=== PATIENT | female | born 2000 | race Caucasian/White ===

== ENCOUNTER 2022-10-28 18:56 | Emergency (ER) | payer SELFPAY ==
[2022-10-28 19:03] VITALS: BP 115/70; PULSE 105; RESP 18; TEMP 37; O2SAT 100; BMI 20.7
[2022-10-28 19:35] LABS: Bilirubin Urine NEGATIVE (NEGATIVE); Blood Urine NEGATIVE (NEGATIVE); Clarity Urine CLEAR (CLEAR); Color Urine LT. YELLOW (YELLOW); Glucose Urine UA NEGATIVE (NEGATIVE); Ketones Urine NEGATIVE (NEGATIVE); Leukocyte Esterase Urine NEGATIVE (NEGATIVE); Nitrite Urine NEGATIVE (NEGATIVE); Protein Urine NEGATIVE (NEG/TRACE); Specific Gravity Urine <=1.005 (1.005-1.025); Urobilinogen Urine 0.2 EU/dL (0.2-1.0); pH Urine 5.5 (5.0-9.0)
[2022-10-28 19:36] LABS: Urine Microscopic Indicated NO
--- NOTE | 2022-10-28 19:44 | CT_ITS ---
The [address] [address] Patient Name: HIREN SWANN MRN: [id number] date: 2000 Sex: F Assigned Patient Location: ER Current Patient Location: ER Accession/Order Number: [id number] Exam Date: 10/28/2022 20:48 Report Date: 10/28/2022 22:39 At the request of: JODI REED Procedure: CT abdomen pelvis w con EXAMINATION: CT abdomen pelvis w con, 10/28/2022 5:48 PM PDT HISTORY: left lower quadrant abdominal pain COMPARISON: None TECHNIQUE: CT scan of the abdomen and pelvis was performed with IV contrast. CT dose reduction technique was used, including Automated Exposure Control. FINDINGS: Lung: No significant finding. Liver: Mild intrahepatic bile duct dilation. Gallbladder: Pericholecystic edema. Spleen: No significant finding. Pancreas: No significant finding. Adrenal glands: No significant finding. Kidneys, ureters and bladder: 4 mm left mid ureteral calculus. Mild left hydroureteronephrosis. Prominent left-sided perinephric and. Adrenal stranding. Bladder is decompressed with circumferential wall thickening. Asymmetric enhancement of the kidneys. Bowel: Normal appendix. Peritoneum/retroperitoneum: As above. Lymph nodes: No significant finding. Vessels: No significant finding. Body wall: Tiny fat-containing umbilical hernia. Reproductive: No significant finding. Bones: No significant finding. IMPRESSION: 4 mm left mid ureteral calculus with mild left hydroureteronephrosis. Prominent edema and asymmetric enhancement of the left kidney suggesting significant renal dysfunction. Superimposed infection not excluded. Cystitis. Mild intrahepatic bile duct dilation and pericholecystic edema. Correlate with biochemical markers and consider quadrant ultrasound. Electronically authenticated by: SANDRA LÓPEZ Date: 10/28/2022 22:39
--- NOTE | 2022-10-28 19:47 | ED.GENADUL1 ---
Documented by User: LEATHA Stephen 10/28/22 21:02 HPI - General Adult General Chief complaint: Abdominal Pain Stated complaint: FLANK PAIN Time Seen by Provider: 10/28/22 19:35 Source: patient Mode of arrival: Wheelchair History of Present Illness HPI narrative: patient is a 22-year-old female presents too the Emergency Room with her mother for evaluation of left lower quadrant abdominal pain. Patient notes pain is been present since yesterday, progressively worsening, there are some times with the pain subsides but pain is reactivated with movement. She was seen yesterday for suspected cyclic vomiting syndrome in another Emergency Room and was given IV fluids and Haldol with some relief, patient states she is still nauseous but the abdominal pain is something new. She denies any fevers or chills. Her last bowel movement was one week ago. Patient admits to marijuana use daily. She denies any IV drug abuse alcohol use. Patient denies any dyspareunia orvaginal discharge. She denies any dysuria. Patient denies any chest pain or shortness of breath, notes pain in the left side of her abdomen with movement. Related Data Allergies Allergy/AdvReac Type Severity Reaction Status Date / Time No Known Drug Allergies Allergy Verified 10/28/22 19:10 Review of Systems ROS Constitutional Denies: fever or chills Ears, nose, mouth, and throat Denies: neck pain Cardiovascular Denies: chest pain Respiratory Denies: shortness of breath or cough Gastrointestinal Reports: abdominal pain, nausea and vomiting Genitourinary Reports: other (LMP 5-22 to 5-27); Denies: painful urination, urinary frequency, vaginal bleeding or vaginal discharge Integumentary/Breast Denies: rash Neurological Denies: headache Psychiatric Denies: anxiety Hematologic/Lymphatic Denies: easy bruising Exam Narrative Exam Narrative: Nurses notes and vital signs reviewed and patient is not hypoxic. General: The patient appears well and in no apparent distress. Patient is resting comfortably on cart. Skin: Warm, dry, no pallor noted. Head: Normocephalic, atraumatic Neck: Supple, trachea mid-line, no tenderness, no lymphadenopathy Eye: Pupils are equal, round and reactive to light, EOMI Ears, Nose, Mouth, and Throat: TM are clear, normal light reflex, oral mucosa is moist,poor dentition, no evidence of abscess, no posterior oropharynx erythema or hypertrophy, uvula is mid-line Cardiovascular: Regular Rate and Rhythm Respiratory: Patient is in no distress, no accessory muscle use, lungs are clear to auscultation, no wheezing, rales or rhonchi. Chest Wall: no tenderness Back: non-tender, no CVA tenderness Musculoskeletal: normal ROM, no tenderness, no swelling GI: Normal bowel sounds, tenderness noted left lower quadrant, no palpable splenomegaly, patient has tenderness on deep palpation but no guarding or rebound. Neurological: A&O x4 Psychiatric: Cooperative Constitutional Vital Signs - 24 hr 10/28/22 19:03 10/28/22 21:09 Temperature 98.6 F Pulse Rate [Monitor] 105 H 88 Respiratory Rate 18 14 Blood Pressure [Left Arm] 115/70 119/67 Pulse Oximetry 100 98 Oxygen Delivery Method Room Air Room Air Course Vital Signs Vital signs: Vital Signs Temperature 98.6 F 10/28/22 19:03 Pulse Rate 105 H 10/28/22 19:03 Respiratory Rate 18 10/28/22 19:03 Blood Pressure 115/70 10/28/22 19:03 Pulse Oximetry 100 10/28/22 19:03 Oxygen Delivery Method Room Air 10/28/22 19:03 Temperature 98.6 F 10/28/22 19:03 Pulse Rate 88 10/28/22 21:09 Respiratory Rate 14 10/28/22 21:09 Blood Pressure 119/67 10/28/22 21:09 Pulse Oximetry 98 10/28/22 21:09 Oxygen Delivery Method Room Air 10/28/22 21:09 Medical Decision Making [facility] Narrative Medical decision making narrative: history of marijuana abuse and cyclic vomiting syndrome, patient notes symptoms currently are different with abdominal pain, last bowel movement week ago. Patient with minimal intake today other than a frozen Coke, mother states she got dehydrated by being in a pool too long two days ago. Patient given 1 L IV fluids, Pepcid 20 mg IV and oral Bentyl and oral Phenergan. Patient also given IV Zofran 4 mg. We will get a CT of the abdomen and pelvis given her complaint for further evaluation to rule out diverticulitis/colitis. Lab Data Labs: Lab Results 10/28/22 10/28/22 Range/Units 19:05 20:03 WBC 19.3 H (4.0-11.0) 10^3/uL RBC 4.36 (4.20-5.40) 10^6/uL Hgb 11.4 L (12.0-16.0) g/dL Hct 35.2 L (36.0-48.0) % MCV 80.7 L (81.0-99.0) fL MCH 26.1 L (26.7-34.0) pg MCHC 32.4 (29.9-35.2) g/dL RDW 14.2 (11.0-15.0) % Plt Count 137 L (150-450) 10^3/uL MPV 14.1 H (9.5-13.5) fL Neut % (Auto) 93.2 H (43.0-75.0) % Lymph % (Auto) 1.9 L (20.5-60.0) % Kings % (Auto) 3.8 (1.7-12.0) % Eos % (Auto) 0.3 L (0.9-7.0) % Baso % (Auto) 0.2 (0.2-2.0) % Neut # (Auto) 18.0 H (1.4-6.5) 10^3/uL Lymph # (Auto) 0.4 L (1.2-3.8) 10^3/uL Kings # (Auto) 0.7 (0.3-0.8) 10^3/uL Eos # (Auto) 0.1 (0.0-0.7) 10^3/uL Baso # (Auto) 0.0 (0.0-0.1) 10^3/uL Sodium 134 L (136-145) mmol/L Potassium 3.5 (3.5-5.1) mmol/L Chloride 100 (98-107) mmol/L Carbon Dioxide 24.4 (21.0-32.0) mmol/L Anion Gap 13.1 BUN 13.0 (7.0-18.0) mg/dL Creatinine 1.62 H (0.55-1.02) mg/dL Est GFR ( Amer) 48 L (>=60) Est GFR (Non-Af Amer) 39 L (>=60) BUN/Creatinine Ratio 8.0 Glucose 143 H (74-106) mg/dL Lactate 1.5 (0.4-2.0) mmol/L Calcium 8.9 (8.5-10.1) mg/dL Total Bilirubin 0.6 (0.2-1.0) mg/dL AST 20 (15-37) U/L ALT 19 (14-59) U/L Total Protein 7.3 (6.4-8.2) g/dL Albumin 3.7 (3.4-5.0) g/dL Globulin 3.6 g/dL Albumin/Globulin Ratio 1.0 Lipase 28.0 L (73.0-393.0) U/L Serum HCG, Qual Negative (NEGATIVE) Urine Color Lt. yellow (YELLOW) Urine Clarity Clear (CLEAR) Urine pH 5.5 (5.0-9.0) Ur Specific [place] <=1.005 A (1.005-1.025) Urine Protein Negative (NEG/TRACE) mg/dL Urine Glucose (UA) Negative (NEGATIVE) mg/dL Urine Ketones Negative (NEGATIVE) mg/dL Urine Occult Blood Negative (NEGATIVE) Urine Nitrite Negative (NEGATIVE) Urine Bilirubin Negative (NEGATIVE) Urine Urobilinogen 0.2 (0.2-1.0) EU/dL Ur Leukocyte Esterase Negative (NEGATIVE) Discharge Plan Discharge Chief Complaint: Abdominal Pain Clinical Impression: Abdominal pain, Calculus of kidney Patient Disposition: Home, Self-Care Condition: Good Instructions: Kidney Stones (ED) Stand Alone Forms: Portal Instructions Referrals: Luis A Gan MD [Physician] - None (in 2-3 days) Rhea Clark MD [Physician] - As soon as possible (kidney stone) Physician,Non-Staff, [Primary Care Provider] - 1 week Follow Up Appointments: schedule ultrasound of your gallbladder. Follow up with family doctor Dr Gan and Urologist as discussed Documented by User: Zia Delaney MD 10/28/22 23:22 HPI - General Adult General Chief complaint: Abdominal Pain Stated complaint: FLANK PAIN Time Seen by Provider: 10/28/22 19:35 Related Data Allergies Allergy/AdvReac Type Severity Reaction Status Date / Time No Known Drug Allergies Allergy Verified 10/28/22 19:10 Exam Constitutional Vital Signs - 24 hr 10/28/22 19:03 10/28/22 21:09 Temperature 98.6 F Pulse Rate [Monitor] 105 H 88 Respiratory Rate 18 14 Blood Pressure [Left Arm] 115/70 119/67 Pulse Oximetry 100 98 Oxygen Delivery Method Room Air Room Air Course Vital Signs Vital signs: Vital Signs Temperature 98.6 F 10/28/22 19:03 Pulse Rate 105 H 10/28/22 19:03 Respiratory Rate 18 10/28/22 19:03 Blood Pressure 115/70 10/28/22 19:03 Pulse Oximetry 100 10/28/22 19:03 Oxygen Delivery Method Room Air 10/28/22 19:03 Temperature 98.6 F 10/28/22 19:03 Pulse Rate 88 10/28/22 21:09 Respiratory Rate 14 10/28/22 21:09 Blood Pressure 119/67 10/28/22 21:09 Pulse Oximetry 98 10/28/22 21:09 Oxygen Delivery Method Room Air 10/28/22 21:09 Medical Decision Making Medical Records Medical records narrative: care transferred at change of shift. Patient presents with recurrent left sided abdominal pain and vomiting. Seen yesterday at hospital in [place] for recurrent vomiting which was felt to be related to marijuana use. CT tonight demonstrates left ureteral stone and hydronephrosis. Also comments about pericholecystic edema. Patient examined and she has LLQ and left CVA tenderness. She does not have RUQ tenderness and there was no history of RUQ pain. Her LFTs are normal. UA clear. She is advised of the plan to follow up with a family doctor regarding her renal function. Will arrange for out patient GB US and have her follow up with Urology for her stone. Discharged with a prescription for Toradol which controlled her pain here and zofran. Patient and her mother informed of the plan Lab Data Labs: Lab Results 10/28/22 10/28/22 Range/Units 19:05 20:03 WBC 19.3 H (4.0-11.0) 10^3/uL RBC 4.36 (4.20-5.40) 10^6/uL Hgb 11.4 L (12.0-16.0) g/dL Hct 35.2 L (36.0-48.0) % MCV 80.7 L (81.0-99.0) fL MCH 26.1 L (26.7-34.0) pg MCHC 32.4 (29.9-35.2) g/dL RDW 14.2 (11.0-15.0) % Plt Count 137 L (150-450) 10^3/uL MPV 14.1 H (9.5-13.5) fL Neut % (Auto) 93.2 H (43.0-75.0) % Lymph % (Auto) 1.9 L (20.5-60.0) % Kings % (Auto) 3.8 (1.7-12.0) % Eos % (Auto) 0.3 L (0.9-7.0) % Baso % (Auto) 0.2 (0.2-2.0) % Neut # (Auto) 18.0 H (1.4-6.5) 10^3/uL Lymph # (Auto) 0.4 L (1.2-3.8) 10^3/uL Kings # (Auto) 0.7 (0.3-0.8) 10^3/uL Eos # (Auto) 0.1 (0.0-0.7) 10^3/uL Baso # (Auto) 0.0 (0.0-0.1) 10^3/uL Sodium 134 L (136-145) mmol/L Potassium 3.5 (3.5-5.1) mmol/L Chloride 100 (98-107) mmol/L Carbon Dioxide 24.4 (21.0-32.0) mmol/L Anion Gap 13.1 BUN 13.0 (7.0-18.0) mg/dL Creatinine 1.62 H (0.55-1.02) mg/dL Est GFR ( Amer) 48 L (>=60) Est GFR (Non-Af Amer) 39 L (>=60) BUN/Creatinine Ratio 8.0 Glucose 143 H (74-106) mg/dL Lactate 1.5 (0.4-2.0) mmol/L Calcium 8.9 (8.5-10.1) mg/dL Total Bilirubin 0.6 (0.2-1.0) mg/dL AST 20 (15-37) U/L ALT 19 (14-59) U/L Total Protein 7.3 (6.4-8.2) g/dL Albumin 3.7 (3.4-5.0) g/dL Globulin 3.6 g/dL Albumin/Globulin Ratio 1.0 Lipase 28.0 L (73.0-393.0) U/L Serum HCG, Qual Negative (NEGATIVE) Urine Color Lt. yellow (YELLOW) Urine Clarity Clear (CLEAR) Urine pH 5.5 (5.0-9.0) Ur Specific [place] <=1.005 A (1.005-1.025) Urine Protein Negative (NEG/TRACE) mg/dL Urine Glucose (UA) Negative (NEGATIVE) mg/dL Urine Ketones Negative (NEGATIVE) mg/dL Urine Occult Blood Negative (NEGATIVE) Urine Nitrite Negative (NEGATIVE) Urine Bilirubin Negative (NEGATIVE) Urine Urobilinogen 0.2 (0.2-1.0) EU/dL Ur Leukocyte Esterase Negative (NEGATIVE) Discharge Plan Discharge Chief Complaint: Abdominal Pain Clinical Impression: Abdominal pain, Calculus of kidney Patient Disposition: Home, Self-Care Condition: Good Instructions: Kidney Stones (ED) Stand Alone Forms: Portal Instructions Referrals: Luis A Gan MD [Physician] - None (in 2-3 days) Rhea Clark MD [Physician] - As soon as possible (kidney stone) Physician,Non-Staff, MD [Primary Care Provider] - 1 week Follow Up Appointments: schedule ultrasound of your gallbladder. Follow up with family doctor Dr Gan and Urologist as discussed
[2022-10-28 20:22] LABS: Basophils Percent Auto 0.2 % (0.2-2.0); Eosinophils Absolute Auto 0.1 10^3/uL (0.0-0.7); Eosinophils Percent Auto 0.3 % (0.9-7.0); Hematocrit 35.2 % (36.0-48.0); Hemoglobin 11.4 g/dL (12.0-16.0); Immature Granulocytes Abs Auto 0.12 10^3/uL (0.00-0.03); Immature Granulocytes Pct Auto 0.6 % (0.0-0.5); Lymphocytes Absolute Auto 0.4 10^3/uL (1.2-3.8); Lymphocytes Percent Auto 1.9 % (20.5-60.0); Mean Corpuscular HGB Conc 32.4 g/dL (29.9-35.2); Mean Corpuscular Hemoglobin 26.1 pg (26.7-34.0); Mean Corpuscular Volume 80.7 fL (81.0-99.0); Mean Platelet Volume 14.1 fL (9.5-13.5); Monocytes Absolute Auto 0.7 10^3/uL (0.3-0.8); Monocytes Percent Auto 3.8 % (1.7-12.0); Neutrophils Percent Auto 93.2 % (43.0-75.0); Platelet Count 137 10^3/uL (150-450); Red Blood Count 4.36 10^6/uL (4.20-5.40); Red Cell Distribution Width 14.2 % (11.0-15.0); White Blood Count 19.3 10^3/uL (4.0-11.0)
[2022-10-28] MEDS: KETOROLAC TROMETHAMINE 30 MG/ML VIAL IVP (20:22)
[2022-10-28] MEDS: DICYCLOMINE HCL 10 MG CAPSULE 20 MG PO (20:22)
[2022-10-28] MEDS: ONDANSETRON PF 4 MG/2 ML VIAL IV (20:22)
[2022-10-28] MEDS: 0.9 % SODIUM CHLORIDE 1,000 ML 999 ML IV ×2 (20:22→21:29)
[2022-10-28] MEDS: PROMETHAZINE HCL 25 MG TABLET PO (20:22)
[2022-10-28] MEDS: FAMOTIDINE/PF 20 MG/2 ML VIAL IV (20:23)
[2022-10-28 20:31] LABS: HCG Qualitative NEGATIVE (NEGATIVE)
[2022-10-28 20:37] LABS: Lactate/Lactic Acid 1.5 mmol/L (0.4-2.0)
[2022-10-28 20:43] LABS: Alanine Aminotransferase 19 U/L (14-59); Albumin Level 3.7 g/dL (3.4-5.0); Alkaline Phosphatase 47 U/L (46-116); Anion Gap 13.1; Aspartate Amino Transferase 20 U/L (15-37); Bilirubin Total 0.6 mg/dL (0.2-1.0); Calcium 8.9 mg/dL (8.5-10.1); Carbon Dioxide 24.4 mmol/L (21.0-32.0); Chloride 100 mmol/L (98-107); Estimated GFR (African America 48 (>=60); Estimated GFR (Non-African Ame 39 (>=60); Globulin 3.6 g/dL; Glucose 143 mg/dL (74-106); Potassium 3.5 mmol/L (3.5-5.1); Sodium 134 mmol/L (136-145); Total Protein 7.3 g/dL (6.4-8.2)
[2022-10-28 21:09] VITALS: BP 119/67; PULSE 88; RESP 14; O2SAT 98
[2022-10-28] MEDS: HYDROCODONE/ACETAMINOPHEN 5-325 MG TABLET 4 TAB PO (23:33)
[2022-10-28] MEDS: ONDANSETRON 4 MG RAPDIS TABLET 8 MG SL (23:34)
== END 2022-10-28 23:43 | disposition home or self-care (01) ==
PROVIDERS: Personal Emergency Response Attendant; Emergency Provider Internal Medicine
DX: N13.2 Hydronephrosis with renal and ureteral calculous obstruction (principal); R11.2 Nausea with vomiting, unspecified; R10.32 Left lower quadrant pain
CPT/HCPCS: 36415; 74177; 80053; 81001; 81003; 83605; 83690; 84703; 85025; 96374; 96375; 99285; Q9967

== ENCOUNTER 2022-10-29 19:26 | Outpatient (OUT) | payer SELFPAY ==
--- NOTE | 2022-10-29 19:39 | US_ITS ---
The [address] [address] Patient Name: HIREN SWANN MRN: [id number] date: 2000 Sex: F Assigned Patient Location: US Current Patient Location: US Accession/Order Number: [id number] Exam Date: 10/29/2022 19:40 Report Date: 10/29/2022 20:30 At the request of: RANJIT CARTAGENA Procedure: US right upper quadrant ULTRASOUND RIGHT UPPER QUADRANT HISTORY: Abdominal pain. COMPARISON: None. FINDINGS: The liver appears unremarkable. There is no evidence for mass or intrahepatic biliary ductal dilatation. The gallbladder appears unremarkable with no evidence for gallstones, gallbladder wall thickening or pericholecystic fluid. The common bile duct measures 5.2 mm. Negative Viramontes's sign. The visualized portions of the pancreas appear unremarkable. The right kidney is normal appearing with no evidence of hydronephrosis or masses. IMPRESSION: Normal right upper quadrant ultrasound. Electronically authenticated by: SABINO BAER Date: 10/29/2022 20:30
== END 2022-10-29 19:27 ==
PROVIDERS: Visit Provider Internal Medicine
DX: K80.20 Calculus of gallbladder without cholecystitis without obstruction (principal)
CPT/HCPCS: 76705

== ENCOUNTER 2023-04-25 19:38 | Emergency (ER) | payer SELFPAY ==
[2023-04-25 19:45] VITALS: BP 100/53; PULSE 80; RESP 16; TEMP 36.7; O2SAT 100; BMI 23.3
--- NOTE | 2023-04-25 20:02 | XR_ITS ---
The [address] [address] Patient Name: HIREN SWANN MRN: [id number] date: 2000 Sex: F Assigned Patient Location: ER Current Patient Location: ER Accession/Order Number: [id number] Exam Date: 04/25/2023 20:47 Report Date: 04/25/2023 21:12 At the request of: NIKUNJ GRAYSON Procedure: XR lumbar spine 2-3V EXAM: XR lumbar spine 2-3V HISTORY: Low back pain COMPARISON: Abdomen and pelvic CT 10/28/2022 TECHNIQUE: 3 views FINDINGS: Maintenance of the normal lumbar lordosis.. Vertebral body heights and alignments exhibit no fracture or listhesis. Intervertebral disc space heights are unremarkable XR/XR lumbar spine 2-3V IMPRESSION: Normal lumbar spine x-rays Electronically authenticated by: EVELYN LUNA Date: 04/25/2023 21:12
--- NOTE | 2023-04-25 20:03 | ED_ITS ---
HPI - Back Pain/Injury General Chief Complaint: Back Pain/Injury Stated Complaint: BACK PAIN, MIGRAINE Time Seen by Provider: 04/25/23 19:45 History of Present Illness HPI Narrative: Patient is a 23-year-old female who presents to the emergency department for the evaluation of low back pain that began today. She reports pain in the mid lumbar spine, no flank pain or abdominal pain. She denies any specific mechanism of trauma or injury. She denies urinary symptoms, fevers, chills, nausea, vomiting. She has no pain radiation to the lower extremities or peripheral paresthesias. She states pain radiates up the spine into the shoulders and she has noticed a headache wrapping around the back of the head this afternoon. She states pain has gotten progressively worse in the low back throughout the day. Pain is worse with movement, standing. She took Motrin to arrival several hours ago without improvement. Related Data Previous Rx's Medication Instructions Recorded ketorolac 10 mg tablet 10 mg PO TID PRN pain #10 tabs 04/25/23 orphenadrine citrate 100 mg 100 mg PO BID PRN muscle pain #14 04/25/23 tablet,extended release tabs Allergies Allergy/AdvReac Type Severity Reaction Status Date / Time No Known Drug Allergies Allergy Verified 04/25/23 19:51 Review of Systems ROS Constitutional Denies: fever or chills Ears, nose, mouth, and throat Denies: throat pain Cardiovascular Denies: chest pain Respiratory Denies: shortness of breath Gastrointestinal Denies: abdominal pain, nausea or vomiting Genitourinary Denies: painful urination or urinary incontinence Musculoskeletal Reports: back pain Integumentary/Breast Denies: rash Neurological Reports: headache; Denies: numbness in extremities, weakness in extremities, dizziness or vertigo Endocrine Denies: excessive urination PFSH [facility] Social History Smoking status: Current every day smoker Exam Narrative Exam Narrative: Gen.: Awake, alert, in no distress Head: Normocephalic, atraumatic ENT: Moist mucous membranes; no nuchal rigidity, C-spine nontender Respiratory: No respiratory distress Back: No bony point tenderness of the T-spine, diffuse mild tenderness of the mid lumbar spine with no obvious deformity, no pain out of proportion on exam, no step-off. Pain with movement of the lumbar spine. Extremities: Moves extremities equally, normal dorsiflexion and plantarflexion of the lower extremities bilaterally, no decrease in sensation to the medial thighs. Normal hip flexion bilaterally Psych: Normal mood and affect Neuro: No focal neuro deficit Skin: Warm, dry, intact Constitutional Vital Signs, click to edit/add: Last Vital Signs Temp 98.0 F 04/25/23 19:45 Pulse 80 04/25/23 19:45 Resp 16 04/25/23 19:45 BP 100/53 04/25/23 19:45 Pulse Ox 100 04/25/23 19:45 O2 Del Method Room Air 04/25/23 19:45 Course Vital Signs Vital signs: Vital Signs Temperature 98.0 F 04/25/23 19:45 Pulse Rate 80 04/25/23 19:45 Respiratory Rate 16 04/25/23 19:45 Blood Pressure 100/53 04/25/23 19:45 Pulse Oximetry 100 04/25/23 19:45 Oxygen Delivery Method Room Air 04/25/23 19:45 Temperature 98.0 F 04/25/23 19:45 Pulse Rate 80 04/25/23 19:45 Respiratory Rate 16 04/25/23 19:45 Blood Pressure 100/53 04/25/23 19:45 Pulse Oximetry 100 04/25/23 19:45 Oxygen Delivery Method Room Air 04/25/23 19:45 MDM - Back Pain/Injury MDM Narrative Medical decision making narrative: Patient medicated with Toradol and Solu-Medrol in the emergency department. Urine specimen is unremarkable and lumbar spine x-rays with no evidence of acute process. Patient treated for musculoskeletal pain with NSAIDs and muscle relaxants for home. Follow-up with PCP and return to the ER if symptoms change or worsen. Medical Records Attestation: I reviewed the patient's medical records. Lab Data Attestation: I reviewed the patient's lab results. Labs: Lab Results 04/25/23 Range/Units 20:15 Urine Color Lt. yellow (YELLOW) Urine Clarity Clear (CLEAR) Urine pH 6.0 (5.0-9.0) Ur Specific [place] 1.025 (1.005-1.025) Urine Protein Negative (NEG/TRACE) mg/dL Urine Glucose (UA) Negative (NEGATIVE) mg/dL Urine Ketones Negative (NEGATIVE) mg/dL Urine Occult Blood Negative (NEGATIVE) Urine Nitrite Negative (NEGATIVE) Urine Bilirubin Negative (NEGATIVE) Urine Urobilinogen 0.2 (0.2-1.0) EU/dL Ur Leukocyte Esterase Negative (NEGATIVE) Imaging Data XR lumbar spine: Attestation: I have reviewed the pertinent imaging results. Radiologist's impression: Procedure: XR lumbar spine 2-3V EXAM: XR lumbar spine 2-3V HISTORY: Low back pain COMPARISON: Abdomen and pelvic CT 10/28/2022 TECHNIQUE: 3 views FINDINGS: Maintenance of the normal lumbar lordosis.. Vertebral body heights and alignments exhibit no fracture or listhesis. Intervertebral disc space heights are unremarkable IMPRESSION: Normal lumbar spine x-rays Electronically authenticated by: EVELYN LUNA Date: 04/25/2023 21:12 Discharge Plan Discharge Chief Complaint: Back Pain/Injury Clinical Impression: Lumbosacral strain Patient Disposition: Home, Self-Care Time of Disposition Decision: 21:19 Condition: Good Prescriptions / Home Meds: New ketorolac 10 mg tablet 10 mg PO TID PRN (Reason: pain) Qty: 10 0RF orphenadrine citrate 100 mg tablet extended release 100 mg PO BID PRN (Reason: muscle pain) Qty: 14 0RF Instructions: Low Back Strain (ED), Back Pain (ED) Additional Instructions: Rest, ice, gentle stretching Stand Alone Forms: Portal Instructions Referrals: Physician,Non-Staff, MD [Primary Care Provider] - 1 week Discharge Date/Time: 04/25/23 21:36
[2023-04-25] MEDS: KETOROLAC TROMETHAMINE 60 MG/2 ML VIAL IM (20:15)
[2023-04-25] MEDS: METHYLPREDNISOLONE SOD SUCC PF 125 MG/2 ML VIAL IM (20:16)
[2023-04-25 20:37] LABS: Bilirubin Urine NEGATIVE (NEGATIVE); Blood Urine NEGATIVE (NEGATIVE); Clarity Urine CLEAR (CLEAR); Color Urine LT. YELLOW (YELLOW); Glucose Urine UA NEGATIVE (NEGATIVE); Ketones Urine NEGATIVE (NEGATIVE); Leukocyte Esterase Urine NEGATIVE (NEGATIVE); Nitrite Urine NEGATIVE (NEGATIVE); Protein Urine NEGATIVE (NEG/TRACE); Specific Gravity Urine 1.025 (1.005-1.025); Urobilinogen Urine 0.2 EU/dL (0.2-1.0)
[2023-04-25 20:38] LABS: Urine Microscopic Indicated NO
[2023-04-25] MEDS: METHOCARBAMOL 500 MG TABLET 1000 MG PO (21:31)
== END 2023-04-25 21:36 | disposition home or self-care (01) ==
PROVIDERS: Physician Assistant; Emergency Provider Internal Medicine
DX: S39.012A Strain of muscle, fascia and tendon of lower back, initial encounter (principal); F17.210 Nicotine dependence, cigarettes, uncomplicated; X58.XXXA Exposure to other specified factors, initial encounter
CPT/HCPCS: 72100; 81003; 96372; 99285; J2930

== ENCOUNTER 2024-02-07 21:43 | Emergency (ER) | payer SELFPAY ==
[2024-02-07 21:48] VITALS: BP 112/67; PULSE 89; TEMP 36.8; O2SAT 100; BMI 23.5
--- OUTSIDE RECORDS SUMMARY | 2024-02-07 21:48 | XMS_ITS | CCD ---
Author Organization [facility] CliniSymo Care Team Providers Care Vice President Medical Affairs Name Role Phone Zhane Graves Unavailable ELEAZAR, DR RANJAN Horvath Attending Unavailabl e ZIEBNAV, DR LORENA Ramires Consulting Unavailable ELEAZAR, DR RANJAN Horvath Admitting Unavailabl e REQUEST, NONE LISTED Primary Care Unavaila YOKASTA Pacheco Consulting Unavailable MAYNOR ELKINS Admitting Unavailable MIRELA, LEATHA RICK Consulting Unavailable MAYNOR ELKINS Attending Unavailable REQUEST, NONE LISTED Primary Care Unavaila ble ANA PAULA, MARCO Consulting Unavailable MARKER, DR BETTS Admitting Unavailable REQUEST, NONE LISTED Primary Care Unavaila ble MARKER, DR BETTS Attending Unavailable MARKER, DR BETTS Consulting Unavailable SHANTEL WATKINS Consulting Unavailable Kristine, Coral Breen Attending Unalukaszi graeme Carmona, Coral Breen Attending MD Damien Trevizo Attending Unavai graeme Alexandre, Luis Antonio Escalante Attending Unavailable Mauri, Deana Husain Attending Unavaila ble Kristine, Marino Saleh Attending UnaMD Yifan Cramer Attending Unavailab marla Romo APRN-HEMODIALYSIS PATIENT CARE SPECIALIST, Na Jones Attending Michelle vailable Demetrius KRAUSE-MANDY, Na Jones Attending Michelle vailable NO PCP, NO PCP Primary Care Unavailable YOKASTA CALHOUN Attending Unavailab KELLEY Irene Attending Unavailable KELLEY GALVAN Referring Unavailable NO PCP, NO PCP Primary Care Unavailable NO PCP, NO PCP Primary Care Unavailable NO PCP, NO PCP Primary Care Unavailable RICKY DE GUZMAN Attending Unavailable RICKY DE GUZMAN Attending Unavailable RICKY DE GUZMAN Referring Unavailable NO PCP, NO PCP Primary Care Unavailable NO PCP, NO PCP Primary Care Unavailable SATYA MOSES Attending Unavailable NO PCP, NO PCP Primary Care Unavailable DAVID ZARATE Attending Unavailable DAVID ZARATE Attending Unavailable DAVID ZARATE Referring Unavailable NO PCP, NO PCP Primary Care Unavailable Allergies Allergy Classification Reported Allergen(s) Allergy Type Date of Onset Reaction(s) Facility (1 source) No Known Medication Allergies; Translations: [No Known Medication Allergies] Propensity to adverse reactions to drug (disorder) [facility] Repository Medications Current Medications Medication Drug Class(es) Dates Sig (Normalized) Sig (Original) [id number] 200 actuat albuterol 0.09 mg/actuat metered dose inhaler (1 source) beta2-Adrenergic Agonist Start: 05-04-2021 take 2 puff(s) by inhalation every four to six hours as needed Albuterol Sulfate HFA 108 (90 Base) MCG/ACT 2 puffs as needed Inhalation every 4-6 hours for 14 days Apr, Active Completed/Discontinued Medications Medication Drug Class(es) Dates Sig (Normalized) Sig (Original) ondansetron 4 mg oral tablet (1 source) Serotonin-3 Receptor Antagonist Start: 06-30-2019 take 1 tablet by mouth every eight hours as needed Zofran ODT 4 MG 1 tablet on the tongue and allow to dissolve Orally every 8 hrs as needed for 4 days Jun, Not-Taking Problems Active Problems Problem Classification Problem Date Documented Da te Episodic/Chronic Abdominal pain (2 sources) Epigastric pain; Translations: [Abdominal pain] Onset: 12-03-2023 Episodic Disorders of teeth and jaw (2 sources) Reversible pulpitis; 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] Onset: 12-11-2023 Episodic Other connective tissue disease (1 source) Myalgia, unspecified site; Translations: [MYALGIA UNSPECIFIED SITE] Onset: 12-29-2021 Episodic Other upper respiratory disease (1 source) Pain in throat Onset: 10-16-2023 Episodic Otitis media and related conditions (1 source) Otitis media, unspecified, unspecified ear; Translations: [Otitis media, unspecified, unspecified ear] Onset: 10-16-2023 Episodic Spondylosis; intervertebral disc disorders; other back problems (7 sources) Pain in thoracic spine; Translations: [Sacrococcygeal disorders, not elsewhere classified] Onset: 05-16-2021 Episodic Substance-related disorders (1 source) Nicotine dependence, cigarettes, uncomplicated; Translations: [NICOTINE DEPEND CIGARETTES UNCOMP] Onset: 08-05-2022 Chronic Unclassified (1 source) PERSONAL HISTORY OF COVID-19; Translations: [PERSONAL HISTORY OF COVID-19] Onset: 12-29-2021 Unclassified (1 source) CONTACT W/AND (SUSP) EXPOS COVID-19; Translations: [CONTACT W/AND (SUSP) EXPOS COVID-19] Onset: 12-29-2021 Unclassified (1 source) Earache Onset: 10-16-2023 Unclassified (1 source) Arm Injury Onset: 07-05-2023 Past or Other Problems Problem Classification Problem Date Documented Da te Episodic/Chronic E Codes: Fall (1 source) Fall (on) (from) unspecified stairs and steps, initial encounter; Translations: [FALL ON FROM UNS STAIRS STEPS INIT] Onset: 05-17-2021 Episodic Fever of unknown origin (3 sources) Fever, unspecified; Translations: [FEVER UNSPECIFIED] Onset: 06-01-2021 Episodic Immunizations and screening for infectious disease (1 source) Contact with and (suspected) exposure to other viral communicable diseases Onset: 05-04-2021 Resolved: 05-04-2021 Episodic Other fractures (1 source) Fracture of coccyx, initial encounter for closed fracture; Translations: [FX COCCYX INITIAL CLOS FRACTURE] Onset: 05-17-2021 Episodic Other non-traumatic joint disorders (1 source) Pain in left wrist; Translations: [Pain in left wrist] Onset: 08-02-2023 Episodic Other non-traumatic joint disorders (2 sources) Pain in wrist Onset: 08-02-2023 Episodic Other non-traumatic joint disorders (1 source) Pain in right elbow; Translations: [Pain in right elbow] Onset: 07-05-2023 Episodic Other upper respiratory infections (1 source) Acute upper respiratory infection, unspecified; Translations: [ACUTE UP RESPIRATORY INFECTION UNS] Onset: 06-05-2021 Episodic Viral infection (1 source) COVID-19 Onset: 05-04-2021 Resolved: 05-04-2021 Results Test Name Value Interpretation Reference Range Facility CT ABDOMEN AND PELVIS WO CON Ton 12-03-2023 CT ABDOMEN AND PELVIS WO CONT CT ABDOMEN AND PELVIS WO CONT CLINICAL INFORMATION: Abdominal pain, acute, nonlocalized. TECHNIQUE: CT Abdomen and Pelvis without intravenous contrast. All CT scans at this facility use dose modulation, iterative reconstruction, and/or weight based dosing when appropriate to reduce radiation dose to as low as reasonably achievable. COMPARISON: 12/13/2022 FINDINGS: CT abdomen: No hydronephrosis or urinary calculi. No free air or free fluid. Stomach, small bowel within normal limits for noncontrast technique. Partly contracted gallbladder. No enlarged lymph nodes. No abdominal aortic aneurysm CT PELVIS: No dilated bowel loops or pericolonic fat stranding. No enlarged pelvic or inguinal lymph nodes. Appendix within normal limits. No osseous lesions. IMPRESSION: * Negative exam. Finalized by Lorena Emmanuel MD on 12/03/2023 9:00 PM Normal [facility] HCG ( test) Ql (U)o n 12-03-2023 Beta HCG ( test) Ql (U) Negative Normal NEG [facility] Comment on above: Performed By: #### 2 106-3 #### [facility] ([id number]) [address] [place] [address] 48067 URN MACROSCOPIC NURon 2023 BILIRUBIN DEE Negative Normal [facility] Comment on above: Performed By: #### N UM #### [facility] ([id number]) [address] [place] [address] [id number] BLOOD/HGB DEE Negative Normal [facility] Comment on above: Performed By: #### N UM #### [facility] ([id number]) [address] [place] [address] 46481 GLUCOSE DEE Negative Normal [facility] Comment on above: Performed By: #### N UM #### [facility] ([id number]) [address] [place] [address] 94826 KETONES DEE Negative Normal [facility] Comment on above: Performed By: #### N UM #### [facility] ([id number]) [address] [place] [address] 57099 LEUKOCYTE ESTERASE DEE Negative Normal [facility] Comment on above: Performed By: #### N UM #### [facility] ([id number]) [address] [place] [address] 97664 NITRITE DEE Negative Normal NEG [facility] Comment on above: Performed By: #### N UM #### [facility] ([id number]) [address] [place] [address] 67734 PH DEE 6.0 Normal 5.0-8.5 [facility] Comment on above: Performed By: #### N UM #### [facility] ([id number]) [address] [place] [address] 67937 PROTEIN DEE Trace Abnormal NEG [facility] Comment on above: Performed By: #### N UM #### [facility] ([id number]) [address] [place] [address] 90233 SPECIFIC GRAVITY DEE >=1.030 Normal 1.003-1.035 [facility] Comment on above: Performed By: #### N UM #### [facility] ([id number]) [address] [place] [address] 26032 UROBILINOGEN DEE 0.2 eu/dL Normal <1.1 [facility] Comment on above: Performed By: #### N UM #### [facility] ([id number]) [address] [place] [address]7500 RAPID STREP SCR NURSINGon S. pyogenes Ag EIA Ql (Throat) Negative Normal NEG [facility] Comment on above: Performed By: #### 6 556-5 #### [facility] ([id number]) [address] [place] [address] 46229 XR WRIST LT MIN 3 VWSon 03-0 XR WRIST LT MIN 3 VWS XR WRIST LT MIN 3 VWS History: Left wrist pain for one Exam/Technique: AP, lateral, oblique [ views of the wrist Comparison: None Available Findings: There is no evidence of fracture, malalignment or an acute bony abnormality. The lateral view shows normal alignment of the distal radius, lunate and capitate. IMPRESSION: * Negative wrist x-ray series. Finalized by Jama Blackwell DO on 08/02/2023 6:09 PM Normal [facility] XR ELBOW RT MIN 3 VWSon 02-0 XR ELBOW RT MIN 3 VWS XR ELBOW RT MIN 3 VWS Right elbow: HISTORY: Right elbow pain. 3 views the right elbow were obtained. There is no acute osseous, articular, or soft tissue abnormality IMPRESSION: Negative exam. Finalized by Nishant House MD on 07/05/2023 4:58 PM Normal [facility] ED Clinical Summaryon 2021 ED Clinical Summary (Inserted Image. Michelle ble to display) [place] [id number] ED Clinical Summary Person Information Name: Debo Swann/[facility] Age: 22 Years : 2000 Sex: Female PCP: Marital Status: Single Phone: Race: White Ethnicity: Not or Language: Northern Irish Visit Reason: Foot pain-swelling; Extremities pain - swelling Acuity: 4 Enc Type: Emergency Med Service: Emergency Medicine Arrival: 03/22/2022 11:56:48 Discharge: 03/22/2022 13:30:00 LOS: 000 01:34 Checkin: 03/22/2022 11:56:48 Checkout: 03/22/2022 13:30:00 Dispo Type: Home or Self Care Address: [address] [address] Provider Notes: Diagnosis: 1:Contusion of right foot Problems No Problems Documented Smoking Status: Smoking Status 4 or less cigarettes(less than 1/4 pack)/day in last 30 days Functional Status: Sensory Deficits: History of Falls: Mobility Assistance Prior to Admission: ADLs: Current Level of Assistance for Self-Care/Mobility: Cognitive Status: Allergies No Known Medication Allergies Laboratory or Other Results This Visit (last charted value for your 03/22/2022 visit) Diagnostic Radiology 03/22/2022 12:19 PM XR Foot 3 Views Right: XR Foot 3 Views Right Measurements: Height: Weight: 68.7 kg Blood Pressure: /66 mmHg BMI: Procedures No Procedures Documented Immunizations No Immunizations Documented This Visit Final Med List: New Medications [facility]/pharmacy #[id number], [address] [place], [place] [id number], [phone] naproxen (naproxen 500 mg oral tablet) 1 Tabs Oral (given by mouth) 2 times a day for 15 Days. Refills: 0. Last Dose: __ Medications that have not changed Other Medications amoxicillin (amoxicillin 500 mg oral capsule) 1 Capsules Oral (given by mouth) 3 times a day for 7 Days. Refills: 0. Last Dose: __ ondansetron (ondansetron 4 mg oral tablet, disintegrating) 1 Tabs Oral (given by mouth) 3 times a day for 7 Days. Refills: 0. Last Dose: __ [id number], [address] [place], [place] [id number], [phone] naproxen (naproxen 500 mg oral tablet) 1 Tabs Oral (given by mouth) 2 times a day for 15 Days. Refills: 0. Other Medications amoxicillin (amoxicillin 500 mg oral capsule) 1 Capsules Oral (given by mouth) 3 times a day for 7 Days. Refills: 0. ondansetron (ondansetron 4 mg oral tablet, disintegrating) 1 Tabs Oral (given by mouth) 3 times a day for 7 Days. Refills: 0. Care Team Members: Attending Physician: Coral Carmona PA-C Consulting Physician: Referring Physician: Provider Role Assigned Unassigned Coral Carmona PA-C ED MidLevel 03/22/2022 12:21:24 Follow up: With: Address: When: Lorena Lundberg [address] [place] [phone] Business (1) With: Address: When: Family Doctor Within 3 to 5 days With: Address: When: ER Comments: For worsening symptoms, fever greater than 102, intolerable pain. Discharge Orders: Discharge Patient 03/22/22 13:11:00 EDT, Discharge to Home, Self Return to Work/School 03/22/22 13:28:00 EDT, 03/23/22 13:29:00 EDT, 03/22/22 13:28:00 EDT Patient Education Information: Foot Contusion [facility] Poison Help line: . [facility] Hotline: [place] Tobacco Quit Line: [facility] ([place], [place]) [address]: [phone] [facility] ([place], [place]) [address]: [phone] [facility] [address] [facility]. [place], [place]: [phone] Normal [facility] ED Note-Physicianon 03-22-20 ED Note-Physician Chief Complaint pt reports dropping totes on her foot at work today. History of Present Illness The patient is a 22-year-old female presenting for evaluation of a right foot injury. Patient states that she was at work when she mistakenly dropped a pallet of totes weighing approximately 100+ pounds onto her right foot at 10:50 AM. Has pain that she describes as achy, 8 in severity. Pain is 6 exacerbated with palpation and weightbearing. Has not take any medication for pain relief. Reports some bruising and swelling to the dorsum of the foot. No associated paresthesias. No other complaints at this time. Review of Systems As reviewed in the HPI. All other systems reviewed are negative or normal. Physical Exam Constitutional: [Alert, awake, no apparent distress, nontoxic] Head: [Normocephalic, atraumatic] Eyes: [PERRL, extraocular movements intact, clear conjunctiva] Musculoskeletal: [Ecchymosis noted to the dorsum of the foot with marked tenderness to palpation, pain with active ROM. Circulation intact in all. Pulses normal. Sensation intact. Normal capillary refill. No deformity] Skin: [[place], warm, dry. No rashes, cellulitis, or petechiae. Normal turgor.] Neuro: [Alert and oriented X 3, GCS 15. Normal mentation and speech. Moves all extremities ] Psych: [Normal mood and affect, thought process is clear and linear] Vitals & Measurements T: 36.9 ?C (Oral) HR: 88 (Peripheral) RR: 18 BP: 100/66 SpO2: 98% HT: 165 cm WT: 68.7 kg (Dosing) Additional Vitals No qualifying data available. Procedure No qualifying data available. ASA Documentation Medical Decision Making The patient presents for evaluation of a foot injury. On physical exam he is noted to be hemodynamically stable, nontoxic-appearing, neurovascularly intact, tenderness to palpation. We will plan for x-ray and pain control with Naprosyn. X-rays without any acute bony abnormality. We will place the patient in an [place] wrap. She is educated to follow-up outpatient with his orthopedist. Rest, ice, compression and elevation. Return precautions given including any worsening symptoms, inability to ambulate, an increase or change in their pain, persistent vomiting, bleeding, fever or inability to take oral fluids. They expressed understanding that follow-up is essential, agreed with this plan and rationale, their questions were answered and felt comfortable going home. Assessment/Plan 1. Contusion of right foot Orders: naproxen, 1 tabs, Oral, BID, X 15 days, # 30 tabs, 0 Refill(s), 04/06/22 13:11:00 [facility], Pharmacy: [facility]/pharmacy #[id number] Discharge Patient Return to Work/School Refresh vitals and sections below: Problem List/Past Medical History Ongoing No qualifying data Historical No qualifying data Medications Inpatient No active inpatient medications Home amoxicillin 500 mg oral capsule, 500 mg= 1 caps, Oral, TID naproxen 500 mg oral tablet, 500 mg= 1 tabs, Oral, BID ondansetron 4 mg oral tablet, disintegrating, 4 mg= 1 tabs, Oral, TID Allergies No Known Medication Allergies Social History Alcohol Current Substance Abuse Denies All Tobacco 4 or less cigarettes(less than 1/4 pack)/day in last 30 days Use:. Cigarettes, E-Cigarettes Diagnostic Results XRay XR Foot 3 Views Right 03/22/22 12:38:45 IMPRESSION: Normal right foot radiographs. Signed By: Igor VILLALBA, Franky Engle Electronically signed by ___ Kristine DAWSON Coral Manciasuze 03/22/22 13:48 EDT Normal [facility] C Urineon 03-17-2022 C Urine Order added by Ara rn rule. Final >100,000 cfu/ml Mixed gram positive shree isolated. with . Predominantly 50-100,000 cfu/ml Streptococcus agalactiae (Group B) isolated Penicillin is the drug of choice. No susceptibility unless requested due to penicillin allergy or treatment failure. ORGANISM Strep B Abnormal [facility] Comment on above: Performed By: #### . Automated Diff #### [place] [address] .UA Microscp Aon 03-15-2022 UA Bacteria Present Abnormal Absent [facility] Comment on above: Performed By: #### L IVER #### [place] [address] UA Mucus Present Abnormal Absent [facility] Comment on above: Performed By: #### L IVER #### [place] [address] UA RBC Quant 8 /HPF High 0-5 [facility] Comment on above: Performed By: #### L IVER #### [place] [address] UA Squepi Cells Quant 27 /HPF Normal 0-29 [facility] Comment on above: Performed By: #### L IVER #### [place] [address] UA WBC Quant 12 /HPF High 0-5 [facility] Comment on above: Performed By: #### L IVER #### [address] [place] [address] COV19 Rapidon 03-15-2022 Employed in healthcare? No Normal [facility] Comment on above: Performed By: #### C [id number] #### [address] [place] [address] Group care resident? No Normal [facility] Comment on above: Performed By: #### C [id number] #### [address] [address] In ICU? No Normal [facility] Comment on above: Performed By: #### C [id number] #### [address] [address] status? Not Applicable [facility] Comment on above: Performed By: #### C [id number] #### [address] [address] Reason for Rapid Test COVID Exposure Normal [facility] Comment on above: Performed By: #### C [id number] #### [address] [address] SARS-CoV-2 (COVID-19) RNA GENIA+probe Ql (Unsp spec) Negative Normal Negative [facility] Comment on above: Result Comment: The 2019 novel coronavirus SARS-CoV-2 target nucleic acids are not detected. This test is for the detection of SARS-CoV-2 RNA. Positive results are indicative of active infection with SARS-CoV-2. Positive results do not rule out bacterial infection or co-infection with other viruses. Negative results should be treated as presumptive and, if inconsistent with clinical signs and symptoms or necessary for patient management, should be tested with an alternative molecular assay.Negative results do not preclude SARS-CoV-2 infection and should not be used as the sole basis for treatment or other patient management decisions. Clinical correlation with patient history and other diagnostic information is necessary to determine patient infection status. ADDITIONAL INFORMATION: Testing was performed using the ID NOW COVID-19 test by [employer], which has received Emergency Use Authorization (EUA) by the U.S. Food and Drug Administration. The [employer] ID NOW COVID-19 test performs best when patients are tested within the first 7 days of symptom onset. Results should be interpreted with caution for asymptomatic patients or those tested outside the 7 day target. Refer to CDC guidelines for further testing algorithms. Fact sheets for this Emergency Use Authorization (EUA) assay can be found at the following links: Fact Sheet for HealthCare Providers: https://www.[employer].gov/media/429994/download Fact Sheet for Patients: https://www.fda.gov/media/387619/download Performed By: #### C [id number] #### [place] [address] SARS-CoV-2 (COVID-19) RNA GENIA+probe Ql (Unsp spec) No Normal [facility] Comment on above: Performed By: #### C [id number] #### [place] [address] Symptomatic as defined by CDC? No Normal [facility] Comment on above: Performed By: #### C [id number] #### [place] [address] ED Clinical Summaryon 2021 ED Clinical Summary (Inserted Image. Michelle ble to display) [place] [address] ED Clinical Summary Person Information Name: Debo Swann/[facility] Age: 22 Years : 2000 Sex: Female PCP: Marital Status: Single Phone: Race: White Ethnicity: Not or Language: Northern Irish Visit Reason: Diarrhea; Nausea; Dyspnea; Dyspnea - adult Acuity: 4 Enc Type: Emergency Med Service: Emergency Medicine Arrival: 03/15/2022 11:01:09 Discharge: 03/15/2022 14:27:00 LOS: 000 03:26 Checkin: 03/15/2022 11:01:09 Checkout: 03/15/2022 14:27:00 Dispo Type: Home or Self Care Address: [address] [address] Provider Notes: History of Present Illness The patient is a 22-year-old female presenting for evaluation of?shortness of breath,?vomiting and diarrhea. ?She reports?diarrhea that has persisted for approximately 2 weeks. ?There is no report of any associated abdominal pain,?dark tarry stools, bloody stools. ?Per patient she?has experienced some improvement of the diarrhea since symptom onset but developed vomiting today. ?Has vomited once.? There is no report of any hematuria, dysuria. ?Is concerned for possible .? Per patient she developed some nasal congestion?3 days ago?and dyspnea today. ?There is no report of any cough. ?She is a smoker. ?Took DayQuil at 6 AM?without any symptomatic improvement.? Denies any?chest pain, headache, lightheadedness, dizziness, fever, chills, weakness. ?No other complaints at this time. Review of Systems As reviewed in the HPI. All other systems reviewed are negative or normal.? Physical Exam Constitutional: [Alert, awake, no apparent distress, nontoxic] Head: [Normocephalic, atraumatic] Eyes: [PERRL, extraocular movements intact, clear conjunctiva] ENT: [Ear canals-normal, clear. TMs- normal, no erythema. Nose-normal, no drainage, septum midline. Mouth-mucus membranes moist and intact. Posterior pharynx-airway patent, no erythema, exudate, or masses. Uvula midline.] Neck: [Neck is supple with FROM, no nuchal rigidity, no cervical spinal tenderness. Trachea is midline. No lymphadenopathy. No meningeal signs.] Chest: [Appears normal, symmetrical rise, no tenderness to palpation.] Cardiovascular: [Regular rate and rhythm, no appreciated murmurs, normal S1 and S2, strong radial pulses w/ intact distal perfusion] Respiratory: [Lungs clear to auscultation w/o wheezes, rhonchi, or rales, normal excursion, no accessory muscle, no stridor] Abdomen: [Appears normal. Bowel sounds normoactive throughout. Soft and non-tender in all quadrants. No palpable masses, non-distended, no rebound, no guarding] Musculoskeletal: [No pain, full active ROM. Circulation intact in all. Pulses normal. Sensation intact. Normal capillary refill. No deformity, no edema, no swelling, no redness] Skin: [[place], warm, dry. No rashes, cellulitis, or petechiae. Normal turgor.] Neuro: [Alert and oriented X 3, GCS 15. Normal mentation and speech. Moves all extremities w/o motor or sensory deficit, gait is stable, strength normal in all extremities] Psych: [Normal mood and affect, thought process is clear and linear] Diagnosis: 1:UTI symptoms; 2:Diarrhea; 3:Nausea; 4:Cough Problems No Problems Documented Smoking Status: Smoking Status 4 or less cigarettes(less than 1/4 pack)/day in last 30 days Functional Status: Sensory Deficits: History of Falls: Mobility Assistance Prior to Admission: ADLs: Current Level of Assistance for Self-Care/Mobility: Cognitive Status: Allergies No Known Medication Allergies Laboratory or Other Results This Visit (last charted value for your 03/15/2022 visit) Urinalysis 03/15/2022 11:54 AM UA Color: Yellow UA Urobilinogen: Normal mg/dL UA Bili: Negative UA Ketones: Trace mg/dL UA Leukocyte Esterase: 500 UA Nitrite: Negative UA Glucose: Normal mg/dL UA Bacteria: Present /HPF UA Protein: 20 mg/dL UA Blood: Negative UA Spec Grav: 1.024 -- Normal range between ( 1.003 and 1.035 ) UA pH: 5.5 UA Clarity: Turbid UA Source: Clean Catch UA Mucus: Present /LPF UA WBC Quant: 12 /HPF -- Normal range between ( 0 and 5 ) UA RBC Quant: 8 /HPF -- Normal range between ( 0 and 5 ) UA Squepi Cells Quant: 27 /HPF -- Normal range between ( 0 and 29 ) Chemistry 03/15/2022 11:54 AM Urine Preg: Negative Molecular 03/15/2022 11:06 AM SARS-CoV-2 RNA Detection: Negative Diagnostic Radiology 03/15/2022 12:54 PM XR Abdomen 2 Views w/ Chest 1 View: XR Abdomen 2 Views w/ Chest 1 View Measurements: Height: Weight: 68.8 kg Blood Pressure: /69 mmHg BMI: Procedures No Procedures Documented Immunizations No Immunizations Documented This Visit Final Med List: New Medications [id number], [address] [place], [place] [id number], [phone] ondansetron (ondansetron 4 mg oral tablet, disintegrating) 1 Tabs Oral (given by mouth) 3 time (more content not included)... Normal [facility] ED Note-Physicianon 03-15-20 ED Note-Physician Chief Complaint n/d/shortness of breath on exertion History of Present Illness The patient is a 22-year-old female presenting for evaluation of shortness of breath, vomiting and diarrhea. She reports diarrhea that has persisted for approximately 2 weeks. There is no report of any associated abdominal pain, dark tarry stools, bloody stools. Per patient she has experienced some improvement of the diarrhea since symptom onset but developed vomiting today. Has vomited once. There is no report of any hematuria, dysuria. Is concerned for possible . Per patient she developed some nasal congestion 3 days ago and dyspnea today. There is no report of any cough. She is a smoker. Took DayQuil at 6 AM without any symptomatic improvement. Denies any chest pain, headache, lightheadedness, dizziness, fever, chills, weakness. No other complaints at this time. Review of Systems As reviewed in the HPI. All other systems reviewed are negative or normal. Physical Exam Constitutional: [Alert, awake, no apparent distress, nontoxic] Head: [Normocephalic, atraumatic] Eyes: [PERRL, extraocular movements intact, clear conjunctiva] ENT: [Ear canals-normal, clear. TMs- normal, no erythema. Nose-normal, no drainage, septum midline. Mouth-mucus membranes moist and intact. Posterior pharynx-airway patent, no erythema, exudate, or masses. Uvula midline.] Neck: [Neck is supple with FROM, no nuchal rigidity, no cervical spinal tenderness. Trachea is midline. No lymphadenopathy. No meningeal signs.] Chest: [Appears normal, symmetrical rise, no tenderness to palpation.] Cardiovascular: [Regular rate and rhythm, no appreciated murmurs, normal S1 and S2, strong radial pulses w/ intact distal perfusion] Respiratory: [Lungs clear to auscultation w/o wheezes, rhonchi, or rales, normal excursion, no accessory muscle, no stridor] Abdomen: [Appears normal. Bowel sounds normoactive throughout. Soft and non-tender in all quadrants. No palpable masses, non-distended, no rebound, no guarding] Musculoskeletal: [No pain, full active ROM. Circulation intact in all. Pulses normal. Sensation intact. Normal capillary refill. No deformity, no edema, no swelling, no redness] Skin: [[place], warm, dry. No rashes, cellulitis, or petechiae. Normal turgor.] Neuro: [Alert and oriented X 3, GCS 15. Normal mentation and speech. Moves all extremities w/o motor or sensory deficit, gait is stable, strength normal in all extremities] Psych: [Normal mood and affect, thought process is clear and linear] Vitals & Measurements T: 36.7 ?C (Oral) HR: 81 (Peripheral) RR: 16 BP: 100/69 SpO2: 95% HT: 162.2 cm WT: 68.8 kg (Dosing) Additional Vitals No qualifying data available. Procedure No qualifying data available. ASA Documentation Medical Decision Making They appear well here in the ED without signs of respiratory distress or hypoxia and are tolerating oral intake. Lungs are clear, 95% on room air. We will obtain UA, acute abdominal series and COVID swab. COVID is negative. UA is positive for UTI. X-ray is without any acute abdominal normality. She is treated with Bactrim, Zofran. We will plan for discharge home. Return precautions were given, including increased work of breathing, cyanosis, apnea, chest pain, persistent fevers, vomiting, lethargy, poor oral intake or other concerns for worsening illness. Patient and/or Caregiver verbalized understanding of the plan, felt comfortable with discharge, and all questions were answered. Assessment/Plan 1. UTI symptoms 2. Diarrhea 3. Nausea 4. Cough Orders: ondansetron, 1 tabs, Oral, TID, X 7 days, # 21 tabs, 0 Refill(s), 03/22/22 14:16:00 EDT, Pharmacy: [id number] sulfamethoxazole-trimet hoprim, 1 tabs, Oral, BID, X 3 days, # 6 tabs, 0 Refill(s), 03/18/22 14:16:00 EDT, Pharmacy: [id number] Culture Urine Discharge Patient Refresh vitals and sections below: Problem List/Past Medical History Ongoing No qualifying data Historical No qualifying data Medications Inpatient No active inpatient medications Home No active home medications Allergies No Known Medication Allergies Social History Alcohol Current Substance Abuse Denies All Tobacco 4 or less cigarettes(less than 1/4 pack)/day in last 30 days Use:. Cigarettes, E-Cigarettes Lab Results Testing LATEST RESULTS HISTORICAL RESULTS Urine Preg 03/15/22 11:54 Negative 03/05/22 Negative UA Macroscopic LATEST RESULTS HISTORICAL RESULTS UA Source 03/15/22 11:54 Clean Catch 03/05/22 Clean Catch UA Color 03/15/22 11:54 Yellow 03/05/22 Light-Yellow UA Clarity 03/15/22 11:54 Turbid 03/05/22 Clear UA Spec Grav 03/15/22 11:54 1.024 03/05/22 1.007 UA pH 03/15/22 11:54 5.5 03/05/22 6.0 UA Protein 03/15/22 11:54 20 03/05/22 Negative UA Glucose 03/15/22 11:54 Normal 03/05/22 Normal UA Bili 03/15/22 11:54 Negative 03/05/22 Negative UA Urobilinogen 03/15/ (more content not included)... Normal [facility] UA w Culture if Indon 2021 Color (U) Yellow Normal [facility] Comment on above: Performed By: #### U CI #### [place] [address] Ketones Ql (U) Trace Abnormal Negative [facility] Comment on above: Performed By: #### U CI #### [place] [address] UA Blood Negative Normal Negative [facility] Comment on above: Performed By: #### U CI #### [place] [address] UA Clarity Turbid Normal [facility] Comment on above: Performed By: #### U CI #### [place] [address] UA Glucose Normal Normal Negative [facility] Comment on above: Performed By: #### U CI #### [place] [address] UA Leukocyte Esterase 500 Abnormal Negative [facility] Comment on above: Performed By: #### U CI #### [address] [address] UA Nitrite Negative Normal Negative [facility] Comment on above: Performed By: #### U CI #### [address] [address] UA pH 5.5 Normal 4.5 - 7.8 [facility] Comment on above: Performed By: #### U CI #### [address] [address] UA Protein 20 mg/dL Normal Negative [facility] Comment on above: Performed By: #### U CI #### [address] [address] UA Source Clean Catch Normal [facility] Comment on above: Performed By: #### U CI #### [address] [address] UA Spec Grav 1.024 Normal 1.003-1.035 [facility] Comment on above: Performed By: #### U CI #### [address] [address] UA Urobilinogen Normal Normal 0.2 - 1.0 [facility] Comment on above: Performed By: #### U CI #### [place] [id number] Urobilinogen (U) [Mass/Vol] Negative Normal Negative [facility] Comment on above: Performed By: #### U CI #### [place] [id number] ED Note-Physicianon 03-09-20 ED Note-Physician Chief Complaint chest pain x 2 days off and on , dyspnea at times History of Present Illness 22-year-old female presents emergency room with chest pain. She describes a sharp substernal pain that last for few minutes then goes away. Ongoing for several days. Was seen in the ER earlier this week for viral symptoms and a cough. States the pain is bad enough that she had to leave work due to this. Denies fever. Denies hemoptysis or hematemesis. No significant swelling of her lower extremities. It is not related to food intake. Review of Systems As reviewed in the HPI. All other systems reviewed are negative or normal. Physical Exam CONSTITUTIONAL: [no apparent distress, well appearing] SKIN: [warm, dry, no jaundice, hives or petechiae] EYES: [pupils are equally round, extraocular movements intact without nystagmus, clear conjunctiva, non-icteric sclera] HENT: [normocephalic, atraumatic, moist mucus membranes, oropharynx clear without exudates] NECK: [Nontender and supple with no nuchal rigidity, no lymphadenopathy, full range of motion] PULMONARY: [clear to auscultation without wheezes, rhonchi, or rales, normal excursion, no accessory muscle use and no stridor] CARDIOVASCULAR: [regular rate, rhythm, normal S1 and S2. No appreciated murmurs. Strong radial pulses with intact distal perfusion] GASTROINTESTINAL: [soft, non-tender, non-distended, no palpable masses, no rebound or guarding] GENITOURINARY: [No costovertebral angle tenderness to palpation] LYMPHATICS: [no edema in lower extremities, no lymphadenopathy] MUSCULOSKELETAL: [Extremities are nontender to palpation and have no gross deformity, no edema, redness, or swelling] NEUROLOGIC: [alert and oriented x 3, GCS 15, normal mentation and speech. Moves all extremities x 4 without motor or sensory deficit, gait is stable without ataxia] PSYCHIATRIC: [normal mood and affect, thought process is clear and linear] Vitals & Measurements T: 36.7 ?C (Oral) HR: 79 (Peripheral) RR: 17 BP: 110/66 SpO2: 98% HT: 165.1 cm WT: 70.3 kg (Dosing) Additional Vitals No qualifying data available. Procedure No qualifying data available. ASA Documentation Medical Decision Making At this point there is no definitive etiology for the patient's chest pain. Based on the history, physical and diagnostic studies, I think the patient is low risk for life threatening cardiopulmonary events. I have considered ACS, pulmonary embolism, dissection, pneumothorax, esophageal pathology, chest wall syndrome, GERD, pleurisy etc. The patient understands that they need to make an appointment to follow up with a primary physician regarding their complaints this week. They understand they need to return to the ED immediately for any worsening symptoms, recurrant chest pain, difficulty breathing, passing out or other concerns. They are to return to the ED if they cannot see a physician and have other concerns. Reexamination/Reevaluat ion Patient generally looks well at the time of discharge and is nontoxic in appearance. Vital signs are stable/improving. No clinical suspicion for worsening symptomatology Assessment/Plan 1. Chest pain Orders: Discharge Patient EKG Return to Work/School Refresh vitals and sections below: Problem List/Past Medical History Ongoing No qualifying data Historical No qualifying data Medications Inpatient No active inpatient medications Home No active home medications Allergies No Known Medication Allergies Social History Alcohol Current Substance Abuse Denies All Tobacco 4 or less cigarettes(less than 1/4 pack)/day in last 30 days Use:. Cigarettes, E-Cigarettes Diagnostic Results XRay XR Chest 2 Views 03/08/22 21:12:20 IMPRESSION: Nonacute two-view chest. Signed By: Rd Echols DO Electronically signed by ___ Mark VILLALBA, Damien Mcdonald 03/09/22 01:15 EDT Normal [facility] ED Clinical Summaryon 2021 ED Clinical Summary (Inserted Image. Michelle ble to display) [address] [address] ED Clinical Summary Person Information Name: Debo Swann/[facility] Age: 22 Years : 2000 Sex: Female PCP: Marital Status: Single Phone: Race: White Ethnicity: Not or Language: Northern Irish [facility]: [id number] Visit Reason: Chest pain; Chest pain - Cardiac Acuity: 3 Enc Type: Emergency Med Service: Emergency Medicine Arrival: 2022 18:49:29 Discharge: 2022 21:29:00 LOS: 000 02:40 Checkin: 2022 18:49:29 Checkout: 2022 21:29:00 Dispo Type: Home or Self Care Address: [address] [address] Provider Notes: Diagnosis: 1:Chest pain Problems No Problems Documented Smoking Status: Smoking Status 4 or less cigarettes(less than 1/4 pack)/day in last 30 days Functional Status: Sensory Deficits: History of Falls: Mobility Assistance Prior to Admission: ADLs: Current Level of Assistance for Self-Care/Mobility: Cognitive Status: Allergies No Known Medication Allergies Laboratory or Other Results This Visit (last charted value for your 2022 visit) Diagnostic Radiology 2022 8:57 PM XR Chest 2 Views: XR Chest 2 Views Measurements: Height: Weight: 70.3 kg Blood Pressure: /66 mmHg BMI: Procedures No Procedures Documented Immunizations No Immunizations Documented This Visit Final Med List: No Medications Documented Care Team Members: Attending Physician: Mark VILLALBA, Damien Mcdonald Consulting Physician: Referring Physician: Provider Role Assigned Unassigned Dylon Doyle ED Nurse 2022 19:56:56 Mark VILLALBA, Damien Mcdonald ED Provider 2022 20:21:38 Follow up: With: Address: When: Call the [facility] physician referral line [phone] Discharge Orders: Discharge Patient 03/08/22 21:11:00 EDT, Discharge to Home, Self Return to Work/School 03/08/22 21:11:00 EDT, 03/09/22 6:00:00 EDT, 03/08/22 21:11:00 EDT Patient Education Information: Chest Pain, Noncardiac [facility] Poison Help line: . [facility] Hotline: [place] Tobacco Quit Line: [place], [place]) [address]: [phone] [place], [place]) [address]: [phone] [facility] [address] [place], [place]: [phone] Normal [facility] XR Chest 2 Viewson XR Chest 2 Views EXAM: XR CHEST 2 VIE WS HISTORY: Chest pain COMPARISON: Chest 03/05/2022. TECHNIQUE: PA and lateral chest were done. FINDINGS: Trachea, mediastinum and heart size are unremarkable. The lungs are clear and well aerated. No infiltrate or nodule or effusion or pneumothorax is noted. Diaphragm and bony elements are intact. IMPRESSION: Nonacute two-view chest. Final Dictated by: Rd Echols DO Dictated DT/TM: 2022 9:11 pm Signed by: Rd Echols DO Signed (Electronic Signature): 2022 9:12 pm (If Report Is Signed, Electronically Signed in Other Vendor System) Normal [facility] .UA Microscp Aon 03-05-2022 UA Bacteria Present Abnormal Absent [facility] Comment on above: Performed By: #### C D:[id number] #### [place] [id number] UA Mucus Present Abnormal Absent [facility] Comment on above: Performed By: #### C [id number] #### [place] [address] UA RBC Quant 2 /HPF Normal 0-5 [facility] Comment on above: Performed By: #### C D:[id number] #### [address] [address] UA Sperm Present Abnormal Absent [facility] Comment on above: Performed By: #### C D:[id number] #### [address] [address] UA Squepi Cells Quant 5 /HPF Normal 0-29 [facility] Comment on above: Performed By: #### C D:[id number] #### [place] [id number] UA WBC Quant 4 /HPF Normal 0-5 [facility] Comment on above: Performed By: #### C D:[id number] #### [place] [id number] .eGFRon 03-05-2022 GFR/1.73 sq M.predicted MDRD (S/P/Bld) [Vol rate/Area] mL/min/{1.73_m2} Normal >=60 [facility] Comment on above: Result Comment: [facility] have implemented the eGFR calculation approach that does not have a coefficient for race and that conforms to the NKF-ASN Task Force Recommendations. Stages of Chronic Kidney Disease GFR Stage 3a Mild to moderate loss of kidney function 59 to 45 Stage 3b Moderate to severe loss of kidney function 44 to 33 Stage 4 Severe loss of kidney function 29 to 15 Stage 5 Kidney failure Less than 15 GFR calculated using the CKD-Epi Creatinine Equation (2020): eGFR = 142 X min(SCr/?, 1)? X max(SCr /?, 1)-1.200 X 0.9938Age X 1.012 [if female] Abbreviations/Units: eGFR (estimated glomerular filtration rate) = mL/min/1.73 m2 SCr (standardized serum creatinine) = mg/dL ? = 0.7 (females) or 0.9 (males) ? = -0.241 (females) or -0.302 (males) min = indicates the minimum of SCr/? or 1 max = indicates the maximum of SCr/? or 1 Age = years Performed By: #### E GFR #### [place] [id number] CBC w/ Diffon 03-05-2022 Erythrocyte distribution width (RBC) [Ratio] 15.0 % High 11.6-14.8 [facility] Comment on above: Performed By: #### E GFR #### [place] [id number] Hematocrit (Bld) [Volume fraction] 38.6 % Normal 36.0-46.0 [facility] Comment on above: Performed By: #### E GFR #### [place] [id number] Hemoglobin (Bld) [Mass/Vol] 12.6 g/dL Normal 12.0-16.0 [facility] Comment on above: Performed By: #### E GFR #### [place] [id number] MCH (RBC) [Entitic mass] 26.1 pg Low 27.0-35.0 [facility] Comment on above: Performed By: #### E GFR #### [place] [id number] MCHC 32.6 % Normal 31.0-37.0 [facility] Comment on above: Performed By: #### E GFR #### [place] [id number] MCV (RBC) [Entitic vol] 79.9 fL Low 80.0-100.0 [facility] Comment on above: Performed By: #### E GFR #### [place] [id number] Platelet 194 x10*3/mcL Normal 150-350 [facility] Comment on above: Performed By: #### E GFR #### [place] [address] Platelet mean volume (Bld) [Entitic vol] 11.4 fL High 6.7-10.6 [facility] Comment on above: Performed By: #### E GFR #### [place] [id number] RBC 4.83 x10*6/mcL Normal 3.80-5.20 [facility] Comment on above: Performed By: #### E GFR #### [place] [id number] WBC 7.4 x10*3/mcL Normal 4.5-11.0 [facility] Comment on above: Performed By: #### E GFR #### [place] [id number] CMPon 03-05-2022 Albumin [Mass/Vol] 4.5 g/dL Normal 3.2-4.9 [facility] Comment on above: Performed By: #### C D:[id number] #### [place] [id number] Albumin/Globulin [Mass ratio] 1.4 {ratio} Normal 1.1-2.2 [facility] Comment on above: Performed By: #### C [id number] #### [place] [id number] Alk Phos 67 IU/L Normal 32-91 [facility] Comment on above: Performed By: #### C [id number] #### [address] [address] ALT [Catalytic activity/Vol] 16 U/L Normal 14-54 [facility] Comment on above: Performed By: #### C D:[id number] #### [address] [address] Anion gap [Moles/Vol] 12 mmol/L Normal 7-17 [facility] Comment on above: Performed By: #### C D:[id number] #### [address] [address] AST [Catalytic activity/Vol] 20 U/L Normal 15-41 [facility] Comment on above: Performed By: #### C D:[id number] #### [address] [address] Bili Total 0.4 mg/dL Normal 0.3-1.2 [facility] Comment on above: Performed By: #### C D:[id number] #### [address] [address] Calcium [Mass/Vol] 9.4 mg/dL Normal 8.5-10.3 [facility] Comment on above: Performed By: #### C D:[id number] #### [address] [address] Chloride [Moles/Vol] 103 mmol/L Normal 98-110 [facility] Comment on above: Performed By: #### C D:[id number] #### [address] [address] CO2 [Moles/Vol] 26 mmol/L Normal 22-32 [facility] Comment on above: Performed By: #### C D:[id number] #### [address] [address] Creatinine [Mass/Vol] 0.72 mg/dL Normal 0.44-1.03 [facility] Comment on above: Performed By: #### C D:[id number] #### [address] [address] Glucose [Mass/Vol] 91 mg/dL Normal 70-99 [facility] Comment on above: Performed By: #### C D:[id number] #### [address] [address] Potassium [Moles/Vol] 3.9 mmol/L Normal 3.4-4.8 [facility] Comment on above: Performed By: #### C D:[id number] #### [address] [address] Protein [Mass/Vol] 7.7 g/dL Normal 6.5-8.1 [facility] Comment on above: Performed By: #### C D:[id number] #### [address] [address] Sodium [Moles/Vol] 137 mmol/L Normal 133-142 [facility] Comment on above: Performed By: #### C D:[id number] #### [address] [address] Urea nitrogen [Mass/Vol] 5 mg/dL Low 8-26 [facility] Comment on above: Performed By: #### C D:[id number] #### [address] [address] Urea nitrogen/Creatinine [Mass ratio] 6.9 mg/mg Low 10.0-20.0 [facility] Comment on above: Performed By: #### C D:[id number] #### [address] [address] COV19 Rapidon 03-05-2022 Employed in healthcare? No Normal [facility] Comment on above: Performed By: #### U CI #### [address] [address] Group care resident? No Normal [facility] Comment on above: Performed By: #### U CI #### [facility] [address] [place] [address] In ICU? No Normal [facility] Comment on above: Performed By: #### U CI #### [facility] [address] [place] [address] status? Not Applicable Normal [facility] Comment on above: Performed By: #### U CI #### [address] [place] [address] Reason for Rapid Test COVID Exposure Normal [facility] Comment on above: Performed By: #### U CI #### [address] [address] SARS-CoV-2 (COVID-19) RNA GENIA+probe Ql (Unsp spec) Negative Normal Negative [facility] Comment on above: Result Comment: The 2019 novel coronavirus SARS-CoV-2 target nucleic acids are not detected. This test is for the detection of SARS-CoV-2 RNA. Positive results are indicative of active infection with SARS-CoV-2. Positive results do not rule out bacterial infection or co-infection with other viruses. Negative results should be treated as presumptive and, if inconsistent with clinical signs and symptoms or necessary for patient management, should be tested with an alternative molecular assay.Negative results do not preclude SARS-CoV-2 infection and should not be used as the sole basis for treatment or other patient management decisions. Clinical correlation with patient history and other diagnostic information is necessary to determine patient infection status. ADDITIONAL INFORMATION: Testing was performed using the ID NOW COVID-19 test by [employer], which has received Emergency Use Authorization (EUA) by the U.S. Food and Drug Administration. The [employer] ID NOW COVID-19 test performs best when patients are tested within the first 7 days of symptom onset. Results should be interpreted with caution for asymptomatic patients or those tested outside the 7 day target. Refer to CDC guidelines for further testing algorithms. Fact sheets for this Emergency Use Authorization (EUA) assay can be found at the following links: Fact Sheet for HealthCare Providers: https://www.fda.gov/media/585462/download Fact Sheet for Patients: https://www.fda.gov/media/969546/download Performed By: #### U CI #### [place] [address] SARS-CoV-2 (COVID-19) RNA GENIA+probe Ql (Unsp spec) No Normal [facility] Comment on above: Performed By: #### U CI #### [place] [address] Symptomatic as defined by CDC? No Normal [facility] Comment on above: Performed By: #### U CI #### [place] [id number] CT Brain w/o Contraston 02-24 CT Brain w/o Contrast CT brain without contrast on 03/05/2022 Clinical history: Dizziness Comparison: None Technique: Multiple axial images of the brain were obtained from the skull base to the vertex. Findings: There is no extra-axial fluid collection, mass effect or midline shift. The ventricular system and the brain parenchymal volume are appropriate for patient's age. The parra-white matter junction is preserved. There is no intracranial hemorrhage. . The visualized paranasal sinuses are unremarkable. IMPRESSION: No CT evidence of acute intracranial pathology. Final Dictated by: Bhupinder Page MD Dictated DT/TM: 03.05.2022 10:36 am Signed by: Bhupinder Page MD Signed (Electronic Signature): 03.05.2022 10:39 am (If Report Is Signed, Electronically Signed in Other Vendor System) Normal [facility] Diff Autoon 03-05-2022 Baso Absolute 0.1 x10*3/mcL Normal 0.0-0.2 [facility] Comment on above: Performed By: #### . Automated Diff #### [place] [id number] Basophils/100 WBC (Bld) 1.0 % Normal 0.0-1.5 [facility] Comment on above: Performed By: #### . Automated Diff #### [place] [id number] Eos Absolute 0.2 x10*3/mcL Normal 0.0-0.4 [facility] Comment on above: Performed By: #### . Automated Diff #### [address] [address] Eosinophils/100 WBC (Bld) 3.1 % Normal 0.0-5.4 [facility] Comment on above: Performed By: #### . Automated Diff #### [address] [address] Lymph Absolute 1.9 x10*3/mcL Normal 1.0-4.8 [facility] Comment on above: Performed By: #### . Automated Diff #### [address] [address] Lymphocytes/100 WBC (Bld) 25.7 % Low 27.2-40.8 [facility] Comment on above: Performed By: #### . Automated Diff #### [address] [address] Davidson Absolute 0.6 x10*3/mcL Normal 0.1-1.1 [facility] Comment on above: Performed By: #### . Automated Diff #### [address] [address] Monocytes/100 WBC (Bld) 8.0 % Normal 3.7-11.9 [facility] Comment on above: Performed By: #### . Automated Diff #### [address] [address] Neutro Absolute 4.6 x10*3/mcL Normal 1.8-7.7 [facility] Comment on above: Performed By: #### . Automated Diff #### [address] [address] Neutro Auto 62.2 % Normal 47.2-70.8 [facility] Comment on above: Performed By: #### . Automated Diff #### [address] [address] ED Clinical Summaryon 2021 ED Clinical Summary (Inserted Image. Michelle ble to display) [address] [address] [place] [address] ED Clinical Summary Person Information Name: Debo Swann/New_Mega Age: 21 Years : 2000 Sex: Female PCP: Marital Status: Single Phone: Race: White Ethnicity: Not or Language: Northern Irish Visit Reason: Dizziness; Nausea; Nausea or vomiting Acuity: 3 Enc Type: Emergency Med Service: Emergency Medicine Arrival: 03/05/2022 09:07:41 Discharge: 03/05/2022 11:49:00 LOS: 000 02:42 Checkin: 03/05/2022 09:07:41 Checkout: 03/05/2022 11:49:00 Dispo Type: Home or Self Care Address: [address] [address] Provider Notes: Diagnosis: 1:Dizziness and giddiness; 2:Labyrinthitis Problems No Problems Documented Smoking Status: Smoking Status 5-9 cigarettes (between 1/4 to 1/2 pack)/day in last 30 days Functional Status: Sensory Deficits: History of Falls: Mobility Assistance Prior to Admission: ADLs: Current Level of Assistance for Self-Care/Mobility: Cognitive Status: Allergies No Known Medication Allergies Laboratory or Other Results This Visit (last charted value for your 03/05/2022 visit) Hematology 03/05/2022 9:34 AM WBC: 7.4 x10 RBC: 4.83 x10 Neutro Auto: 62.2 % -- Normal range between ( 47.2 and 70.8 ) Lymph Auto: 25.7 % -- Normal range between ( 27.2 and 40.8 ) Davidson Auto: 8.0 % -- Normal range between ( 3.7 and 11.9 ) Eos Auto: 3.1 % -- Normal range between ( 0.0 and 5.4 ) Basophil Auto: 1.0 % -- Normal range between ( 0.0 and 1.5 ) Baso Absolute: 0.1 x10 MCV: 79.9 fL -- Normal range between ( 80.0 and 100.0 ) MCHC: 32.6 % -- Normal range between ( 31.0 and 37.0 ) Lymph Absolute: 1.9 x10 Hct: 38.6 % -- Normal range between ( 36.0 and 46.0 ) Davidson Absolute: 0.6 x10 MCH: 26.1 pg -- Normal range between ( 27.0 and 35.0 ) Neutro Absolute: 4.6 x10 Hgb: 12.6 g/dL -- Normal range between ( 12.0 and 16.0 ) Mean Platelet Volume: 11.4 fL -- Normal range between ( 6.7 and 10.6 ) Platelet: 194 x10 Eos Absolute: 0.2 x10 RDW: 15.0 % -- Normal range between ( 11.6 and 14.8 ) Urinalysis 03/05/2022 9:44 AM UA Color: Light-Yellow UA Urobilinogen: Normal mg/dL UA Bili: Negative UA Ketones: Negative mg/dL UA Leukocyte Esterase: 25 UA Nitrite: Negative UA Glucose: Normal mg/dL UA Bacteria: Present /HPF UA Protein: Negative mg/dL UA Blood: 3+ UA Spec Grav: 1.007 -- Normal range between ( 1.003 and 1.035 ) UA Sperm: Present /HPF UA pH: 6.0 UA Clarity: Clear UA Source: Clean Catch UA Mucus: Present /LPF UA WBC Quant: 4 /HPF -- Normal range between ( 0 and 5 ) UA RBC Quant: 2 /HPF -- Normal range between ( 0 and 5 ) UA Squepi Cells Quant: 5 /HPF -- Normal range between ( 0 and 29 ) Chemistry 03/05/2022 9:44 AM Urine Preg: Negative 03/05/2022 9:34 AM Creatinine Lvl: 0.72 mg/dL -- Normal range between ( 0.44 and 1.03 ) BUN: 5 mg/dL -- Normal range between ( 8 and 26 ) Glucose Lvl: 91 mg/dL -- Normal range between ( 70 and 99 ) Potassium Lvl: 3.9 mmol/L -- Normal range between ( 3.4 and 4.8 ) AST: 20 IU/L -- Normal range between ( 15 and 41 ) ALT: 16 IU/L -- Normal range between ( 14 and 54 ) Troponin-I: <0.03 ng/mL -- Normal range between ( 0.00 and 0.03 ) Sodium Lvl: 137 mmol/L -- Normal range between ( 133 and 142 ) Lipase Lvl: 33 IU/L -- Normal range between ( 22 and 51 ) Calcium Lvl: 9.4 mg/dL -- Normal range between ( 8.5 and 10.3 ) Albumin Lvl: 4.5 g/dL -- Normal range between ( 3.2 and 4.9 ) Total Protein: 7.7 g/dL -- Normal range between ( 6.5 and 8.1 ) Bili Total: 0.4 mg/dL -- Normal range between ( 0.3 and 1.2 ) Alk Phos: 67 IU/L -- Normal range between ( 32 and 91 ) Chloride: 103 mmol/L -- Normal range between ( 98 and 110 ) CO2: 26 mmol/L -- Normal range between ( 22 and 32 ) Anion Gap: 12 -- Normal range between ( 7 and 17 ) Lactic Acid Lvl: 1.3 mmol/L -- Normal range between ( 0.5 and 2.0 ) TSH: 0.37 mcIU/mL -- Normal range between ( 0.45 and 5.33 ) Estimated GFR: >60 mL/min/1.73m? BUN Crea Ratio: 6.9 -- Normal range between ( 10.0 and 20.0 ) AG Ratio: 1.4 -- Normal range between ( 1.1 and 2.2 ) Molecular 03/05/2022 9:44 AM SARS-CoV-2 RNA Detection: Negative Misc. Micro Rapid Test 03/05/2022 9:44 AM Influenza A Ag: Negative Influenza B Ag: Negative Computed Tomography 03/05/2022 10:[address] Brain w/o Contrast: CT Brain w/o Contrast CT Abdomen Pelvis w/ IV Contrast: CT Abdomen Pelvis w/ IV Contrast Diagnostic Radiology 03/05/2022 10:20 AM XR Chest 1 View: XR Chest 1 View Measurements: Height: Weight: 69.5 kg Blood Pressure: /68 mmHg BMI: Procedures No Procedures Documented Immunizations No Immunizations Documented This Visit Final Med List: No Medications Documented Care Team Members: Attending Physician: Luis Antonio Alexandre MD Consulting Physician: Referring Physician: Mei (more content not included)... Normal [facility] ED Note-Physicianon 03-05-20 ED Note-Physician Chief Complaint patient states I keep feeling like I am going to throw up and everything keeps feeling like its moving from side to side or spinning ongoing for a week History of Present Illness Patient presents the emergency department because of nausea, dizziness, and URI symptoms for the last 2 weeks. Patient said that she has had URI symptoms for over 2 weeks and she came to the emergency department on Saturday last week and COVID and flu were negative and she was discharged. She returns to the emergency department because she has continued to have nasal congestion sinus drainage . Over the last 1 week she has developed dizziness. Cough has been dry nonproductive no associated chest pain shortness of breath palpitations diaphoresis or any other cardiorespiratory symptoms. She has no associated risk factors for cardiovascular disease. Her last menstrual period was the of last month and therefore she is states that she is not . She describes her dizziness as being lightheaded especially when she gets from laying down or sitting position to a standing position. She feels as though she may fall forward and she feels very lightheaded. This lightheadedness has been associated with nausea although she has not vomited. The nausea is fairly significant and she feels as though she might vomit. Last night she coughed and she had a gag reflex she vomited once but has not vomited over the last week. The dizziness is not associated with any visual disturbances like blurry vision, diplopia or any visual field defects. The dizziness is no associated with any motor weakness or sensory abnormalities. No associated cranial nerve abnormalities. She is neurologically intact. The nasal congestion is not associated with any purulence discharge and no associated facial pain. No associated ear discharge or any earache. No associated sore throat cervical adenopathy or any neck swellings. Her ENT and pharyngeal exam is normal. She has associated nausea but has not vomited. No associated diarrhea or constipation but she has lower abdominal discomfort. She has no associated fever or jaundice. No associated flank pains dysuria urgency increasing frequency or any other GI or symptoms. Clinically she has mild tenderness on the left lower quadrant but second palpation is nontender and therefore raising the possibility of normal exam. She has no associated dermatologic musculoskeletal or neurologic symptoms and she is otherwise healthy without comorbidities. She has not had dizziness before. Review of Systems As reviewed in the HPI. All other systems reviewed are negative or normal. Physical Exam CONSTITUTIONAL: [no apparent distress, well appearing] SKIN: [warm, dry, no jaundice, hives or petechiae] EYES: [pupils are equally round, extraocular movements intact without nystagmus, clear conjunctiva, non-icteric sclera] HENT: [normocephalic, atraumatic, moist mucus membranes, oropharynx clear without exudates] NECK: [Nontender and supple with no nuchal rigidity, no lymphadenopathy, full range of motion] PULMONARY: [clear to auscultation without wheezes, rhonchi, or rales, normal excursion, no accessory muscle use and no stridor] CARDIOVASCULAR: [regular rate, rhythm, normal S1 and S2. No appreciated murmurs. Strong radial pulses with intact distal perfusion] GASTROINTESTINAL: [soft, non-tender, non-distended, no palpable masses, no rebound or guarding] GENITOURINARY: [No costovertebral angle tenderness to palpation] LYMPHATICS: [no edema in lower extremities, no lymphadenopathy] MUSCULOSKELETAL: [Extremities are nontender to palpation and have no gross deformity, no edema, redness, or swelling] NEUROLOGIC: [alert and oriented x 3, GCS 15, normal mentation and speech. Moves all extremities x 4 without motor or sensory deficit . PSYCHIATRIC: [normal mood and affect, thought process is clear and linear] Vitals & Measurements T: 36.6 ?C (Oral) HR: 85 (Peripheral) RR: 16 BP: 104/68 SpO2: 98% HT: 165.1 cm WT: 69.5 kg (Dosing) Additional Vitals No qualifying data available. Procedure No qualifying data available. ASA Documentation Medical Decision Making Patient presented to the emergency department with a nonspecific symptoms of lightheadedness/headach e/ lower abdominal pain URI symptoms among others. Clinically she appears well with an otherwise normal exam. Patient CBC is normal with a WBC count of 7.4 hemoglobin 12.6 the rest of the CBC is normal. Chemistries are normal with a negative lactic acid normal BUN/creatinine normal liver function test. Troponin is negative test is negative TSH is low at 0.37 urinalysis is negative and she does not have UTI symptoms. COVID and flu are negative. Chest x-ray is normal CT brain and abdomen is normal except it showed some ovarian follicles and saddle contracted gallbladder highly doubt cholecystitis because patient does not have any pain in the right upper quadrant he has no jaundice no fevers and with a normal (more content not included)... Normal [facility] Flu A&B Ag Rapidon Influenza A Ag Negative Normal Negative [facility] Comment on above: Performed By: #### U CI #### [place] [id number] Influenza B Ag Negative Normal Negative [facility] Comment on above: Result Comment: The [employer] BinaxNow Influenza A+B Card 2 detects both viable and non-viable influenza A and B. Test performance depends on the amount of virus (antigen) in the specimen and may or may not compare with cell culture results performed on the same specimen. A negative test result does not exclude the infection with influenza A and/or B. Therefore, the results obtained with the [employer] BinaxNow Influenza A+B Test should be used in conjunction with clinical findings to make an accurate diagnosis. Additional testing is required to differentiate any specific influenza A+B subtypes or strains, in consultation with state or local public health departments. Performed By: #### U CI #### [place] [id number] Lactic Acid, Randomon 2021 Lactic Acid Lvl 1.3 mmol/L Normal 0.5-2.0 [facility] Comment on above: Performed By: #### L IVER #### [address] [address] Lipaseon 03-05-2022 Lipase Lvl 33 IU/L Normal 22-51 [facility] Comment on above: Performed By: #### L IVER #### [address] [address] TSHon 03-05-2022 TSH Qn 0.37 m[IU]/L Low 0.45-5.33 [facility] Comment on above: Result Comment: Refe rence Ranges for individuals from to 18 years of age were obtained from The Shanelle Nava Handbook (20 ed) published by [facility]. Reference Ranges for Females: Females, 1st Trimester 0.05 ? 3.7 uIU/mL Females, 2nd Trimester 0.31 ? 4.35 uIU/mL Females, 3rd Trimester 0.41 ? 5.18 uIU/mL Performed By: #### L IVER #### [address] [address] Troponin-Ion 03-05-2022 Troponin I.cardiac [Mass/Vol] ng/mL Normal 0.00-0.03 [facility] Comment on above: Result Comment: An i ncreased Troponin-I value, in the absence of myocardial ischemia, may indicate other etiologies of cardiac damage. Performed By: #### T ROP #### [address] [address] UA w Culture if Indon 2021 Color (U) Light-Yellow Normal [facility] Comment on above: Performed By: #### U CI #### [place] [id number] Ketones Ql (U) Negative Normal Negative [facility] Comment on above: Performed By: #### U CI #### [address] [address] UA Blood 3+ Abnormal Negative [facility] Comment on above: Performed By: #### U CI #### [address] [address] UA Clarity Clear Normal [facility] Comment on above: Performed By: #### U CI #### [address] [address] UA Glucose Normal Normal Negative [facility] Comment on above: Performed By: #### U CI #### [address] [address] UA Leukocyte Esterase 25 Abnormal Negative [facility] Comment on above: Performed By: #### U CI #### [address] [address] UA Nitrite Negative Normal Negative [facility] Comment on above: Performed By: #### U CI #### [address] [address] UA pH 6.0 Normal 4.5 - 7.8 [facility] Comment on above: Performed By: #### U CI #### [address] [address] UA Protein Negative Normal Negative [facility] Comment on above: Performed By: #### U CI #### [address] [address] UA Source Clean Catch Normal [facility] Comment on above: Performed By: #### U CI #### [address] [address] UA Spec Grav 1.007 Normal 1.003-1.035 [facility] Comment on above: Performed By: #### U CI #### [address] [address] UA Urobilinogen Normal Normal 0.2 - 1.0 [facility] Comment on above: Performed By: #### U CI #### [address] [address] Urobilinogen (U) [Mass/Vol] Negative Normal Negative [facility] Comment on above: Performed By: #### U CI #### [place] [id number] XR Chest 1 Viewon 03-05-2022 XR Chest 1 View Chest radiograph on 03/05/2022 Clinical History: Dizziness Comparison: Chest radiograph on 07/26/2020 Findings: Single view of the chest was obtained. The cardiomediastinal silhouette is within normal limits. No pneumothorax, pleural effusion or pulmonary consolidation. No acute bony abnormality. Impression: No radiographic evidence of acute chest disease. Final Dictated by: Bhupinder Page MD Dictated DT/TM: 03/05/2022 10:32 am Signed by: Bhupinder Page MD Signed (Electronic Signature): 03/05/2022 10:33 am (If Report Is Signed, Electronically Signed in Other Vendor System) Normal [facility] C Urineon 03-01-2022 C Urine Order added by Ara lilly rule. Final 30-50,000 cfu/ml Mixed gram positive and gram negative shree isolated. and . 30-50,000 cfu/ml Streptococcus agalactiae (Group B) Penicillin is the drug of choice. No susceptibility unless requested due to penicillin allergy or treatment failure. ORGANISM Strep B Abnormal [facility] Comment on above: Performed By: #### E GFR #### [place] [address] .UA Microscp Aon 02-27-2022 UA Mucus Present Abnormal Absent [facility] Comment on above: Performed By: #### U CI #### [place] [address] UA RBC Quant 3 /HPF Normal 0-5 [facility] Comment on above: Performed By: #### U CI #### [place] [address] UA Squepi Cells Quant 18 /HPF Normal 0-29 [facility] Comment on above: Performed By: #### U CI #### [place] [address] UA WBC Quant 19 /HPF High 0-5 [facility] Comment on above: Performed By: #### U CI #### [place] [address] .eGFRon 02-27-2022 GFR/1.73 sq M.predicted MDRD (S/P/Bld) [Vol rate/Area] mL/min/{1.73_m2} Normal >=60 [facility] Comment on above: Result Comment: [facility] have implemented the eGFR calculation approach that does not have a coefficient for race and that conforms to the NKF-ASN Task Force Recommendations. Stages of Chronic Kidney Disease GFR Stage 3a Mild to moderate loss of kidney function 59 to 45 Stage 3b Moderate to severe loss of kidney function 44 to 33 Stage 4 Severe loss of kidney function 29 to 15 Stage 5 Kidney failure Less than 15 GFR calculated using the CKD-Epi Creatinine Equation (2020): eGFR = 142 X min(SCr/?, 1)? X max(SCr /?, 1)-1.200 X 0.9938Age X 1.012 [if female] Abbreviations/Units: eGFR (estimated glomerular filtration rate) = mL/min/1.73 m2 SCr (standardized serum creatinine) = mg/dL ? = 0.7 (females) or 0.9 (males) ? = -0.241 (females) or -0.302 (males) min = indicates the minimum of SCr/? or 1 max = indicates the maximum of SCr/? or 1 Age = years Performed By: #### C [id number] #### [address] [address] Basic Metabolic Profileon Anion gap [Moles/Vol] 8 mmol/L Normal 7-17 [facility] Comment on above: Performed By: #### U CI #### [address] [address] Calcium [Mass/Vol] 8.9 mg/dL Normal 8.5-10.3 [facility] Comment on above: Performed By: #### U CI #### [address] [address] Chloride [Moles/Vol] 103 mmol/L Normal 98-110 [facility] Comment on above: Performed By: #### U CI #### [address] [address] CO2 [Moles/Vol] 29 mmol/L Normal 22-32 [facility] Comment on above: Performed By: #### U CI #### [address] [address] Creatinine [Mass/Vol] 0.81 mg/dL Normal 0.44-1.03 [facility] Comment on above: Performed By: #### U CI #### [address] [address] Glucose [Mass/Vol] 82 mg/dL Normal 70-99 [facility] Comment on above: Performed By: #### U CI #### [address] [address] Potassium [Moles/Vol] 3.5 mmol/L Normal 3.4-4.8 [facility] Comment on above: Performed By: #### U CI #### [address] [address] Sodium [Moles/Vol] 136 mmol/L Normal 133-142 [facility] Comment on above: Performed By: #### U CI #### [address] [address] Urea nitrogen [Mass/Vol] 8 mg/dL Normal 8-26 [facility] Comment on above: Performed By: #### U CI #### [address] [address] Urea nitrogen/Creatinine [Mass ratio] 9.9 mg/mg Low 10.0-20.0 [facility] Comment on above: Performed By: #### U CI #### [address] [address] CBC w/ Diffon 02-27-2022 Erythrocyte distribution width (RBC) [Ratio] 15.4 % High 11.6-14.8 [facility] Comment on above: Performed By: #### E GFR #### [address] [address] Hematocrit (Bld) [Volume fraction] 35.3 % Low 36.0-46.0 [facility] Comment on above: Performed By: #### E GFR #### [address] [address] Hemoglobin (Bld) [Mass/Vol] 11.5 g/dL Low 12.0-16.0 [facility] Comment on above: Performed By: #### E GFR #### [address] [address] MCH (RBC) [Entitic mass] 26.1 pg Low 27.0-35.0 [facility] Comment on above: Performed By: #### E GFR #### [address] [address] MCHC 32.7 % Normal 31.0-37.0 [facility] Comment on above: Performed By: #### E GFR #### [address] [place] [id number] MCV (RBC) [Entitic vol] 79.6 fL Low 80.0-100.0 [facility] Comment on above: Performed By: #### E GFR #### [address] [place] [id number] Platelet 169 x10*3/mcL Normal 150-350 [facility] Comment on above: Performed By: #### E GFR #### [address] [place] [id number] Platelet mean volume (Bld) [Entitic vol] 11.6 fL High 6.7-10.6 [facility] Comment on above: Performed By: #### E GFR #### [address] [place] [id number] RBC 4.43 x10*6/mcL Normal 3.80-5.20 [facility] Comment on above: Performed By: #### E GFR #### [address] [place] [id number] WBC 5.7 x10*3/mcL Normal 4.5-11.0 [facility] Comment on above: Performed By: #### E GFR #### [address] [address] COV19 Rapidon 02-27-2022 Employed in healthcare? Unknown Normal [facility] Comment on above: Performed By: #### E GFR #### [address] [address] Group care resident? No Normal [facility] Comment on above: Performed By: #### E GFR #### [place] [id number] In ICU? No Normal [facility] Comment on above: Performed By: #### E GFR #### [address] [address] status? Unknown Normal [facility] Comment on above: Performed By: #### E GFR #### [address] [address] Reason for Rapid Test Inpatient Normal [facility] Comment on above: Performed By: #### E GFR #### [address] [address] SARS-CoV-2 (COVID-19) RNA GENIA+probe Ql (Unsp spec) Negative Normal Negative [facility] Comment on above: Result Comment: The 2019 novel coronavirus SARS-CoV-2 target nucleic acids are not detected. This test is for the detection of SARS-CoV-2 RNA. Positive results are indicative of active infection with SARS-CoV-2. Positive results do not rule out bacterial infection or co-infection with other viruses. Negative results should be treated as presumptive and, if inconsistent with clinical signs and symptoms or necessary for patient management, should be tested with an alternative molecular assay.Negative results do not preclude SARS-CoV-2 infection and should not be used as the sole basis for treatment or other patient management decisions. Clinical correlation with patient history and other diagnostic information is necessary to determine patient infection status. ADDITIONAL INFORMATION: Testing was performed using the ID NOW COVID-19 test by [employer], which has received Emergency Use Authorization (EUA) by the U.S. Food and Drug Administration. The [employer] ID NOW COVID-19 test performs best when patients are tested within the first 7 days of symptom onset. Results should be interpreted with caution for asymptomatic patients or those tested outside the 7 day target. Refer to CDC guidelines for further testing algorithms. Fact sheets for this Emergency Use Authorization (EUA) assay can be found at the following links: Fact Sheet for HealthCare Providers: https://www.fda.gov/media/558801/download Fact Sheet for Patients: https://www.fda.gov/media/918988/download Performed By: #### E GFR #### [address] [address] SARS-CoV-2 (COVID-19) RNA GENIA+probe Ql (Unsp spec) No Normal [facility] Comment on above: Performed By: #### E GFR #### [address] [address] SARS-CoV-2 (COVID-19) RNA GENIA+probe Ql (Unsp spec) Unknown Normal [facility] Comment on above: Performed By: #### E GFR #### [address] [address] Symptomatic as defined by CDC? Yes Normal [facility] Comment on above: Performed By: #### E GFR #### [place] [id number] Diff Autoon 02-27-2022 Baso Absolute 0.1 x10*3/mcL Normal 0.0-0.2 [facility] Comment on above: Performed By: #### L IVER #### [address] [address] Basophils/100 WBC (Bld) 1.2 % Normal 0.0-1.5 [facility] Comment on above: Performed By: #### L IVER #### [address] [address] Eos Absolute 0.2 x10*3/mcL Normal 0.0-0.4 [facility] Comment on above: Performed By: #### L IVER #### [address] [address] Eosinophils/100 WBC (Bld) 3.4 % Normal 0.0-5.4 [facility] Comment on above: Performed By: #### L IVER #### [address] [address] Lymph Absolute 2.0 x10*3/mcL Normal 1.0-4.8 [facility] Comment on above: Performed By: #### L IVER #### [address] [address] Lymphocytes/100 WBC (Bld) 34.5 % Normal 27.2-40.8 [facility] Comment on above: Performed By: #### L IVER #### [address] [address] Davidson Absolute 0.5 x10*3/mcL Normal 0.1-1.1 [facility] Comment on above: Performed By: #### L IVER #### [place] [id number] [place] [id number] Monocytes/100 WBC (Bld) 7.9 % Normal 3.7-11.9 [facility] Comment on above: Performed By: #### L IVER #### [place] [id number] Neutro Absolute 3.0 x10*3/mcL Normal 1.8-7.7 [facility] Comment on above: Performed By: #### L IVER #### [place] [address] Neutro Auto 53.0 % Normal 47.2-70.8 [facility] Comment on above: Performed By: #### L IVER #### [place] [id number] ED Clinical Summaryon 2021 ED Clinical Summary (Inserted Image. Michelle ble to display) [place] [id number] ED Clinical Summary Person Information Name: Debo Swann/[facility] Age: 21 Years : 2000 Sex: Female PCP: Marital Status: Single Phone: Race: White Ethnicity: Not or Language: Northern Irish Visit Reason: Weakness; Weakness or fatigue Acuity: 3 Enc Type: Emergency Med Service: Emergency Medicine Arrival: 02/27/2022 07:44:44 Discharge: 02/27/2022 09:45:00 LOS: 000 02:01 Checkin: 02/27/2022 07:44:44 Checkout: 02/27/2022 09:45:00 Dispo Type: Home or Self Care Address: [address] [address] Provider Notes: Diagnosis: 1:Viral syndrome Problems No Problems Documented Smoking Status: Smoking Status 4 or less cigarettes(less than 1/4 pack)/day in last 30 days Functional Status: Sensory Deficits: History of Falls: Mobility Assistance Prior to Admission: ADLs: Current Level of Assistance for Self-Care/Mobility: Cognitive Status: Allergies No Known Medication Allergies Laboratory or Other Results This Visit (last charted value for your 02/27/2022 visit) Hematology 02/27/2022 8:10 AM WBC: 5.7 x10 RBC: 4.43 x10 Neutro Auto: 53.0 % -- Normal range between ( 47.2 and 70.8 ) Lymph Auto: 34.5 % -- Normal range between ( 27.2 and 40.8 ) Davidson Auto: 7.9 % -- Normal range between ( 3.7 and 11.9 ) Eos Auto: 3.4 % -- Normal range between ( 0.0 and 5.4 ) Basophil Auto: 1.2 % -- Normal range between ( 0.0 and 1.5 ) Baso Absolute: 0.1 x10 MCV: 79.6 fL -- Normal range between ( 80.0 and 100.0 ) MCHC: 32.7 % -- Normal range between ( 31.0 and 37.0 ) Lymph Absolute: 2.0 x10 Hct: 35.3 % -- Normal range between ( 36.0 and 46.0 ) Davidson Absolute: 0.5 x10 MCH: 26.1 pg -- Normal range between ( 27.0 and 35.0 ) Neutro Absolute: 3.0 x10 Hgb: 11.5 g/dL -- Normal range between ( 12.0 and 16.0 ) Mean Platelet Volume: 11.6 fL -- Normal range between ( 6.7 and 10.6 ) Platelet: 169 x10 Eos Absolute: 0.2 x10 RDW: 15.4 % -- Normal range between ( 11.6 and 14.8 ) Urinalysis 02/27/2022 8:52 AM UA Color: Yellow UA Urobilinogen: 2 mg/dL UA Bili: Negative UA Ketones: Negative mg/dL UA Leukocyte Esterase: 250 UA Nitrite: Negative UA Glucose: Normal mg/dL UA Protein: 30 mg/dL UA Blood: 3+ UA Spec Grav: 1.027 -- Normal range between ( 1.003 and 1.035 ) UA pH: 6.0 UA Clarity: Turbid UA Source: Clean Catch UA Mucus: Present /LPF UA WBC Quant: 19 /HPF -- Normal range between ( 0 and 5 ) UA RBC Quant: 3 /HPF -- Normal range between ( 0 and 5 ) UA Squepi Cells Quant: 18 /HPF -- Normal range between ( 0 and 29 ) Chemistry 02/27/2022 8:10 AM Creatinine Lvl: 0.81 mg/dL -- Normal range between ( 0.44 and 1.03 ) BUN: 8 mg/dL -- Normal range between ( 8 and 26 ) Glucose Lvl: 82 mg/dL -- Normal range between ( 70 and 99 ) Potassium Lvl: 3.5 mmol/L -- Normal range between ( 3.4 and 4.8 ) Sodium Lvl: 136 mmol/L -- Normal range between ( 133 and 142 ) Calcium Lvl: 8.9 mg/dL -- Normal range between ( 8.5 and 10.3 ) Chloride: 103 mmol/L -- Normal range between ( 98 and 110 ) CO2: 29 mmol/L -- Normal range between ( 22 and 32 ) Anion Gap: 8 -- Normal range between ( 7 and 17 ) Estimated GFR: >60 mL/min/1.73m? BUN Crea Ratio: 9.9 -- Normal range between ( 10.0 and 20.0 ) Serum Preg: Negative Molecular 02/27/2022 8:10 AM SARS-CoV-2 RNA Detection: Negative Measurements: Height: Weight: 70.5 kg Blood Pressure: /58 mmHg BMI: Procedures No Procedures Documented Immunizations No Immunizations Documented This Visit Final Med List: No Medications Documented Care Team Members: Attending Physician: Deana Dotson MD Consulting Physician: Referring Physician: Provider Role Assigned Unassigned Deana Dotson MD ED Provider 02/27/2022 08:02:15 Dania Hauser ED Nurse 02/27/2022 08:28:25 Follow up: With: Address: When: regular doctor Within 2 to 4 days, only if needed Discharge Orders: Discharge Patient 02/27/22 9:13:00 EDT, Discharge to Home, Self Return to Work/School 02/27/22 9:13:00 EDT, 03/01/22 9:13:00 EDT, 02/27/22 9:13:00 EDT, Viral syndrome Patient Education Information: Viral Syndrome (Adult) [facility] Poison Help line: . [facility] Hotline: [place] Tobacco Quit Line: [facility] ([place], [place]) [address]: [phone] [facility] ([place], [place]) [address]: [phone] [facility] [address] [place], [place]: [phone] Normal [facility] ED Note-Physicianon 02-28-20 ED Note-Physician Chief Complaint pt to er for not feeling well states that she has not been eating that much for the last week History of Present Illness Patient is a 21 year old female presenting to the ED for evaluation of nausea and lightheadedness. Her symptoms began about a week ago. She also complains of slight sinus congestion and a productive cough. Patient reports she has forced herself to vomit but otherwise denies fever, urinary issues, diarrhea, sore throat, and any pain. Patient is currently on her menstrual period. She was exposed to COVID about a month ago and has also been exposed to bronchitis. Patient is normally healthy and is not on any medications. She denies any surgical history, and she does not have any known allergies. DM runs in her family. She smokes 3 cigarettes a day and drinks socially but denies drug use. She does not have a PCP. Review of Systems GENERAL: [Negative for weakness, malaise, fever] EYES: [Negative for injury, pain, redness, discharge] ENT: [Positive for sinus congestion. Negative for injury, pain , sore throat and discharge] NECK: [Negative for injury, pain, swelling, and stiffness] CARDIOVASCULAR: [Negative for chest pain, palpitations] RESPIRATORY: [Positive for cough. Negative for shortness of breath, wheezing, and pleuritic chest pain] ABDOMEN/GI: [Positive for nausea and vomiting. Negative for pain, diarrhea] BACK: [Negative for injury or bruising] : [Negative for injury, bleeding, discharge, frequency, hematuria, urgency] MUSCULOSKELETAL: [Negative for arthralgias, injury and deformity] SKIN: [Negative for injury, rash, discoloration] NEURO: [Negative for focal weakness, numbness, tingling, and seizure] Physical Exam CONSTITUTIONAL: [no apparent distress, well appearing] SKIN: [warm, dry, no jaundice, hives or petechiae] EYES: [pupils are equally round, extraocular movements intact without nystagmus, clear conjunctiva, non-icteric sclera] HENT: [normocephalic, atraumatic, moist mucus membranes, oropharynx clear without exudates] NECK: [Nontender and supple with no nuchal rigidity, no lymphadenopathy, full range of motion] PULMONARY: [clear to auscultation without wheezes, rhonchi, or rales, normal excursion, no accessory muscle use and no stridor] CARDIOVASCULAR: [regular rate, rhythm, normal S1 and S2. No appreciated murmurs. Strong radial pulses with intact distal perfusion] GASTROINTESTINAL: [soft, non-tender, non-distended, no palpable masses, no rebound or guarding] GENITOURINARY: [No costovertebral angle tenderness to palpation] LYMPHATICS: [no edema in lower extremities, no lymphadenopathy] MUSCULOSKELETAL: [Extremities are nontender to palpation and have no gross deformity, no edema, redness, or swelling] NEUROLOGIC: [alert and oriented x 3, normal mentation and speech. Moves all extremities x 4 without motor or sensory deficit] PSYCHIATRIC: [normal mood and affect, thought process is clear and linear] Vitals & Measurements T: 36.7 ?C (Oral) HR: 71 (Peripheral) RR: 16 BP: 96/58 SpO2: 97% WT: 70.5 kg (Dosing) Additional Vitals No qualifying data available. Procedure No qualifying data available. ASA Documentation Medical Decision Making Amelia Palacio scribing for and in the presence of Dr. Barreto. Scribe Attestation: The information in this document, created by the medical reimbursement manager for me, accurately reflects the services I personally performed and the decisions made by me. Reexamination/Reevaluat ion improved Assessment/Plan 1. Viral syndrome Plan: follow up with PCP within a few days, return for any change or concerns. Ordered: Return to Work/School Orders: Culture Urine Discharge Patient Refresh vitals and sections below: Problem List/Past Medical History Ongoing No qualifying data Historical No qualifying data Medications Inpatient No active inpatient medications Home No active home medications Allergies No Known Medication Allergies Social History Alcohol Current, Beer, 1-2 times per month Substance Abuse Denies All Tobacco 4 or less cigarettes(less than 1/4 pack)/day in last 30 days Use:. Cigarettes, 3 per day. Cigarettes Lab Results Automated Hematology LATEST RESULTS HISTORICAL RESULTS WBC 02/27/22 08:10 5.7 09/13/21 11.0 RBC 02/27/22 08:10 4.43 09/13/21 4.68 Hgb 02/27/22 08:10 11.5 Low 09/13/21 11.8 Low Hct 02/27/22 08:10 35.3 Low 09/13/21 36.0 MCV 02/27/22 08:10 79.6 Low 09/13/21 76.9 Low MCH 02/27/22 08:10 26.1 Low 09/13/21 25.3 Low MCHC 02/27/22 08:10 32.7 09/13/21 32.9 RDW 02/27/22 08:10 15.4 High 09/13/21 14.8 Platelet 02/27/22 08:10 169 09/13/21 183 Mean Platelet Volume 02/27/22 08:10 11.6 High 09/13/21 10.7 High Neutro Auto 02/27/22 08:10 53.0 09/13/21 73.2 High Lymph Auto 02/27/22 08:10 34.5 09/13/21 19.1 Low Davidson Auto 02/27/22 08:10 7.9 09/13/21 5.6 Eos Auto 02/27/22 08:10 (more content not included)... Normal [facility] S Preg Qlon 02-27-2022 Serum Preg Negative Normal [facility] Comment on above: Result Comment: The hCG Combo Rapid Test has a sensitivity of 10 mIU/mL in serum and is capable of detecting as early as 1 day after the first missed menses. Performed By: #### E GFR #### [facility] [address] [place] [address] UA w Culture if Indon 2021 Color (U) Yellow Normal [facility] Comment on above: Performed By: #### U CI #### [facility] [address] [place] [address] Ketones Ql (U) Negative Normal Negative [facility] Comment on above: Performed By: #### U CI #### [facility] [address] [place] [address] UA Blood 3+ Abnormal Negative [facility] Comment on above: Performed By: #### U CI #### [facility] [address] [place] [address], [place] [address] UA Clarity Turbid Normal [facility] Comment on above: Performed By: #### U CI #### [facility] [address] [place] [address], [place] [address] UA Glucose Normal Normal Negative [facility] Comment on above: Performed By: #### U CI #### [address] [place] [address] UA Leukocyte Esterase 250 Abnormal Negative [facility] Comment on above: Performed By: #### U CI #### [address] [place] [address] UA Nitrite Negative Normal Negative [facility] Comment on above: Performed By: #### U CI #### [address] [place] [address] UA pH 6.0 Normal 4.5 - 7.8 [facility] Comment on above: Performed By: #### U CI #### [address] [place] [address] UA Protein 30 mg/dL Abnormal Negative [facility] Comment on above: Performed By: #### U CI #### [address] [place] [address] UA Source Clean Catch Normal [facility] Comment on above: Performed By: #### U CI #### [facility] [address] [place] [address], [place] [address] UA Spec Grav 1.027 Normal 1.003-1.035 [facility] Comment on above: Performed By: #### U CI #### [address] [place] [address] UA Urobilinogen 2 mg/dL Abnormal 0.2 - 1.0 [facility] Comment on above: Performed By: #### U CI #### [facility] [address] [place] [address] Urobilinogen (U) [Mass/Vol] Negative Normal Negative [facility] Comment on above: Performed By: #### U CI #### [facility] [address] [place] [address] CBC AUTO DIFFon 12-28-2021 BASO # 0.0 103/ul Normal 0.0-0.1 [facility] Comment on above: Performed By: #### C BC #### [facility] [address] [place] [address] Dr. Bartolo Pierre Basophils/100 WBC (Bld) 0.4 % Normal 0.2-2.0 [facility] Comment on above: Performed By: #### C BC #### [facility] [address] [place] [address] Dr. Bartolo Pierre EO # 0.2 103/ul Normal 0.0-0.7 [facility] Comment on above: Performed By: #### C BC #### [facility] [address] [place] [address] Dr. Bartolo Pierre Eosinophils/100 WBC (Bld) 2.2 % Normal 0.9-7.0 [facility] Comment on above: Performed By: #### C BC #### [facility] [address] [place] [address] Dr. Bartolo Pierre Erythrocyte distribution width (RBC) [Ratio] 14.4 % Normal 11.0-15.0 [facility] Comment on above: Performed By: #### C BC #### [facility] [address] [place] [address] Dr. Bartolo Pierre Hematocrit (Bld) [Volume fraction] 36.1 % Normal 36.0-48.0 [facility] Comment on above: Performed By: #### C BC #### [facility] [address] [place] [address] Dr. Bartolo Pierre Hemoglobin (Bld) [Mass/Vol] 11.5 g/dL Critically low 12.0-16.0 [facility] Comment on above: Performed By: #### C BC #### [facility] [address] [address] [address] Bartolo Pierre IG # 0.01 10e3/ul Normal 0.00-0.03 [facility] Comment on above: Performed By: #### C BC #### [facility] [address] [place] [address] Dr. Bartolo Pierre IG % 0.1 % Normal 0.0-0.5 [facility] Comment on above: Performed By: #### C BC #### [facility] [address] [place] [address] Dr. Bartolo Pierre LYMPH # 2.0 103/ul Normal 1.2-3.8 [facility] Comment on above: Performed By: #### C BC #### [facility] [address] [place] [address] Dr. Bartolo Pierre Lymphocytes/100 WBC (Bld) 25.2 % Normal 20.5-60.0 [facility] Comment on above: Performed By: #### C BC #### [facility] [address] [place] [address] Dr. Bartolo Pierre MANUAL DIFF REQ NO Normal [facility] Comment on above: Performed By: #### C BC #### [facility] [address] [place] [address] Dr. Bartolo Pierre MCH (RBC) [Entitic mass] 25.8 pg Critically low 26.7-34.0 [facility] Comment on above: Performed By: #### C BC #### [facility] [address] [place] [address] Dr. Bartolo Pierre MCHC (RBC) [Mass/Vol] 31.9 g/dL Normal 29.9-35.2 [facility] Comment on above: Performed By: #### C BC #### [facility] [address] [place] [address] Dr. Bartolo Pierre MCV (RBC) [Entitic vol] 80.9 fL Critically low 81.0-99.0 [facility] Comment on above: Performed By: #### C BC #### [facility] [address] [place] [address] Dr. Bartolo Pierre MONO # 0.7 103/ul Normal 0.3-0.8 [facility] Comment on above: Performed By: #### C BC #### [facility] [address] [place] [address] Dr. Bartolo Pierre Monocytes/100 WBC (Bld) 8.2 % Normal 1.7-12.0 [facility] Comment on above: Performed By: #### C BC #### [facility] [address] [place] [address] Dr. Bartolo Pierre NEUT # 5.1 103/ul Normal 1.4-6.5 [facility] Comment on above: Performed By: #### C BC #### [facility] [address] [place] [address] Dr. Bartolo Pierre Neutrophils/100 WBC (Bld) 63.9 % Normal 43.0-75.0 [facility] Comment on above: Performed By: #### C BC #### [facility] [address] [place] [address] Dr. Bartolo Pierre Platelet mean volume (Bld) [Entitic vol] 13.2 fL Normal 9.5-13.5 [facility] Comment on above: Performed By: #### C BC #### [facility] [address] [place] [address] Dr. Bartolo Pierre PLT 177 103/ul Normal 150-450 [facility] Comment on above: Performed By: #### C BC #### [facility] [address] [place] [address] Dr. Bartolo Pierre RBC 4.46 106/ul Normal 4.20-5.40 [facility] Comment on above: Performed By: #### C BC #### [facility] [address] [place] [address] Dr. Bartolo Pierre WBC 7.9 103/ul Normal 4.0-11.0 [facility] Comment on above: Performed By: #### C BC #### [facility] [address] [place] [address] Dr. Bartolo Pierre CRPon 12-28-2021 CRP 0.5 mg/dL Normal <=1.0 [facility] Comment on above: Performed By: #### C RP, CMP #### [facility] [address] [address] [address] Bartolo Pierre Covid-19 PCR (CVDTB)on SARS-CoV-2 (COVID-19) RNA GENIA+probe Ql (Unsp spec) Not detected Normal NOT DETECTED [facility] Comment on above: Result Comment: When diagnostic testing is negative, the possibility of a false negative should be considered in the context of a patient's recent exposures and the presence of clinical signs and symptoms consistent with SARS-CoV-2. This test is not yet approved or cleared by the [place] FDA. When there are no FDA-approved or cleared tests available, and other criteria are met, FDA can make tests available under an emergency access mechanism called an Emergency Use Authorization (EUA). The EUA for this test is supported by the Pharmacy Laboratory Technician of Health and Human Service's declaration that circumstances exist to justify the emergency use of in vitro diagnostics for the detection and/or diagnosis of the virus that causes COVID-19. This EUA will remain in effect for the duration of the COVID-19 declaration justifying emergency of IVDs, unless it is terminated or revoked by the FDA (after which the test may no longer be used). Performed By: #### C VDTB ####[facility] [id number] [address]Dr[address] Bartolo Pierre ER URINE PROFILEon 2 Bilirubin Ql (U) Negative Normal NEGATIVE [facility] Comment on above: Performed By: #### U MICRO, ERUR, PREGU #### [facility] [address] [address] [address] Bartolo Pierre Clarity (U) CLEAR Normal CLEAR [facility] Comment on above: Performed By: #### U MICRO, ERUR, PREGU #### [facility] [address] [address] [address] Bartolo Pierre Color (U) LT. YELLOW Normal YELLOW [facility] Comment on above: Performed By: #### U MICRO, ERUR, PREGU #### [facility] [address] [address] [address] Bartolo ZHANG A micrscopic examination will be performed if indicated. Normal [facility] Comment on above: Performed By: #### U MICRO, ERUR, PREGU #### [facility] [address] [address] [address] Bartolo Pierre Glucose Ql (U) Negative Normal NEGATIVE [facility] Comment on above: Performed By: #### U MICRO, ERUR, PREGU #### [facility] [address] [address] [address] Bartolo Pierre Hemoglobin Ql (U) LARGE Abnormal NEGATIVE [facility] Comment on above: Performed By: #### U MICRO, ERUR, PREGU #### [facility] [address] [address] [address] Bartolo Pierre Ketones Ql (U) Negative Normal NEGATIVE [facility] Comment on above: Performed By: #### U MICRO, ERUR, PREGU #### [facility] [address] [address] [address] Bartolo Pierre LEUKOCYTES Negative Normal NEGATIVE [facility] Comment on above: Performed By: #### U MICRO, ERUR, PREGU #### [facility] [address] [address] [address] Bartolo Pierre Nitrite Ql (U) Negative Normal NEGATIVE [facility] Comment on above: Performed By: #### U MICRO, ERUR, PREGU #### [facility] [address] [address] [address] Bartolo Pierre pH (U) 8.0 [pH] Normal 5-9 [facility] Comment on above: Performed By: #### U MICRO, ERUR, PREGU #### [facility] [address] [address] [address] Bartolo Pierre SPEC GRAVITY 1.015 Normal 1.005-<=1.025 [facility] Comment on above: Performed By: #### U MICRO, ERUR, PREGU #### [facility] [address] [address] [address] Bartolo Pierre UA PROTEIN Negative Normal NEGATIVE/ TRACE [facility] Comment on above: Performed By: #### U MICRO, ERUR, PREGU #### [facility] [address] [place] [address] Dr. Bartolo Pierre UR MICRO IND INDICATED Normal [facility] Comment on above: Performed By: #### U MICRO, ERUR, PREGU #### [facility] [address] [place] [address] Dr. Bartolo Pierre Urobilinogen Qn (U) 0.2 {Mati'U}/dL Normal 0.2 - 1. 0 [facility] Comment on above: Performed By: #### U MICRO, ERUR, PREGU #### [facility] [address] [place] [address] Dr. Bartolo Pierre URon 12-28-2021 , QUAL Negative Normal NEGATIVE [facility] Comment on above: Performed By: #### U MICRO, ERUR, PREGU #### [facility] [address] [place] [address] Dr. Bartolo Pierre PROF 14(COMP METB)on 022 Albumin [Mass/Vol] 3.3 g/dL Critically low 3.4-5.0 [facility] Comment on above: Performed By: #### C RP, CMP #### [facility] [address] [place] [address] Dr. Bartolo Pierre Albumin/Globulin [Mass ratio] 1.0 {ratio} Normal [facility] Comment on above: Performed By: #### C RP, CMP #### [facility] [address] [place] [address] Dr. Bartolo Pierre ALP [Catalytic activity/Vol] 60 U/L Normal 46-116 [facility] Comment on above: Performed By: #### C RP, CMP #### [facility] [address] [place] [address] Dr. Bartolo Pierre ALT [Catalytic activity/Vol] 12 U/L Critically low 14-59 [facility] Comment on above: Performed By: #### C RP, CMP #### [facility] [address] [place] [address] Dr. Bartolo Pierre Anion gap [Moles/Vol] 10.5 mmol/L Normal [facility] Comment on above: Performed By: #### C RP, CMP #### [facility] [address] [address] [address] Bartolo Pierre AST [Catalytic activity/Vol] 9 U/L Critically low 15-37 [facility] Comment on above: Performed By: #### C RP, CMP #### [facility] [address] [place] [address] Dr. Bartolo Pierre Bilirubin [Mass/Vol] 0.2 mg/dL Normal 0.2-1.0 [facility] Comment on above: Performed By: #### C RP, CMP #### [facility] [place] [facility] [address] [place] [address] Dr. Bartolo Pierre Calcium [Mass/Vol] 8.5 mg/dL Normal 8.5-10.1 [facility] Comment on above: Performed By: #### C RP, CMP #### [facility] [place] [facility] [address] [place] [address] Dr. Bartolo Pierre Chloride [Moles/Vol] 106 mmol/L Normal 98-107 [facility] [place] [facility] Comment on above: Performed By: #### C RP, CMP #### [facility] [place] [facility] [address] [place] [address] Dr. Bartolo Pierre CO2 [Moles/Vol] 27.2 mmol/L Normal 21.0-32.0 [facility] Comment on above: Performed By: #### C RP, CMP #### [facility] [place] [facility] [address] [place] [address] Dr. Bartolo Pierre Creatinine [Mass/Vol] 0.87 mg/dL Normal 0.55-1.02 [facility] [place] [facility] Comment on above: Performed By: #### C RP, CMP #### [facility] [place] [facility] [address] [place] [address] Dr. Bartolo Pierre EGFR-AF NIUEAN >60 Normal >=60 [facility] Comment on above: Performed By: #### C RP, CMP #### [facility] [place] [facility] [address] [place] [address] Dr. Bartolo Pierre EGFR-NON AF NIUEAN >60 Normal >=60 [facility] Comment on above: Performed By: #### C RP, CMP #### [facility] [place] [facility] [address] [place] [address] Dr. Bartolo Pierre Globulin (S) [Mass/Vol] 3.2 g/dL Normal [facility] Comment on above: Performed By: #### C RP, CMP #### [facility] [place] [facility] [address] [place] [address] Dr. Bartolo Pierre Glucose [Mass/Vol] 84 mg/dL Normal 74-106 [facility] Comment on above: Performed By: #### C RP, CMP #### [facility] [place] [facility] [address] [place] [address] Dr. Bartolo Pierre Potassium [Moles/Vol] 3.7 mmol/L Normal 3.5-5.1 [facility] Comment on above: Performed By: #### C RP, CMP #### [facility] [place] [facility] [address] [place] [address] Dr. Bartolo Pierre Protein [Mass/Vol] 6.5 g/dL Normal 6.4-8.2 [facility] Comment on above: Performed By: #### C RP, CMP #### [facility] [place] [facility] [address] [place] [address] Dr. Bartolo Pierre Sodium [Moles/Vol] 140 mmol/L Normal 136-145 [facility] Comment on above: Performed By: #### C RP, CMP #### [facility] [place] [facility] [address] [place] [address] Dr. Bartolo Pierre Urea nitrogen [Mass/Vol] 8.0 mg/dL Normal 7.0-18.0 [facility] Comment on above: Performed By: #### C RP, CMP #### [facility] [place] [facility] [address] [place] [address] Dr. Bartolo Pierre Urea nitrogen/Creatinine [Mass ratio] 9.2 mg/mg Normal [facility] Comment on above: Performed By: #### C RP, CMP #### [facility] [place] [facility] [address] [place] [address] Dr. Bartolo Pierre SED RATE WESTERGREN 2021 SED RATE 16 mm/hr Normal <=20 [facility] [place] [facility] Comment on above: Performed By: #### S EDR ####[facility] [place] [facility] [address] [place] [address]Dr. Bartolo Pierre URINE MICROSCOPIC ONLYon BACTERIA NONE SEEN Normal NONE SEEN [facility] [place] [facility] Comment on above: Performed By: #### U MICRO, ERUR, PREGU ####[facility] [place] [facility] [address] [place] [address]DrSunita Pierre Bacteria identified Cx Nom (U) NOT INDICATED Normal [facility] [place] [facility] Comment on above: Performed By: #### U MICRO, ERUR, PREGU ####[facility] [place] [facility] [address] [place] [address]DrSunita Pierre CAST SEEN Abnormal NONE SEEN [facility] Comment on above: Performed By: #### U MICRO, ERUR, PREGU ####[facility] [place] [facility] [address] [place] [address]DrSunita Pierre Crystals LM Nom (Urine sed) NONE SEEN Normal NONE SEEN [facility] [place] [facility] Comment on above: Performed By: #### U MICRO, ERUR, PREGU ####[facility] [place] [facility] [address] [place] [address]Dr. Bartolo Pierre Epithelial cells LM Ql (Urine sed) RARE Normal NONE SEEN /RARE [facility] [place] [facility] Comment on above: Performed By: #### U MICRO, ERUR, PREGU ####[facility] [place] [facility] [address] [place] [address]Dr. Bartolo Pierre HYALINE CAST FEW Normal [facility] [place] [facility] Comment on above: Performed By: #### U MICRO, ERUR, PREGU ####[facility] [place] [facility] [address] [place] [address]DrSunita Pierre MUCOUS NONE SEEN Normal NONE SEEN [facility] [place] [facility] Comment on above: Performed By: #### U MICRO, ERUR, PREGU ####[facility] [place] [facility] [address] [place] [address]DrSunita Pierre RBC 2-5 Abnormal 0-2 [facility] [place] [facility] Comment on above: Performed By: #### U MICRO, ERUR, PREGU ####[facility] [place] [facility] [address] [place], [place] [address]Zj. Bartolo Pierre WBC 2-5 Abnormal NONE SEEN [facility] [place] [facility] Comment on above: Performed By: #### U MICRO, ERUR, PREGU ####[facility] [place] [facility] [address] [place], [place] [address]Go. Bartolo Pierre XR ABD FLAT UP_PA Ada 12-28 XR ABD FLAT UP_PA CH EXAM: XR ABD FLAT U P_PA CH HISTORY: CHEST PAIN, UNSPECIFIED COMPARISON: Chest radiograph dated 06/01/2021. TECHNIQUE: One view of the chest and 2 views of the abdomen were obtained. FINDINGS: The cardiac silhouette is normal in size. The lungs are clear. There is no significant pneumothorax or pleural effusion. No acute osseous abnormality is seen. There is a nonspecific bowel gas pattern without evidence of bowel obstruction. No intraperitoneal free air is seen. IMPRESSION: 1. No acute cardiopulmonary abnormality. 2. Nonspecific bowel gas pattern without evidence of bowel obstruction. Electronically authenticated by: Bernardo WATKINS Date: 2021-12-28 01:13 Normal [facility] [place] [facility] C Urineon 09-15-2021 C Urine Order added by Ara lilly rule. Final >100,000 cfu/ml Escherichia coli isolated ORGANISM EC -- SUSCEPTIBILITY - ORGANISM ID: 1 ANTIBIOTIC INTERPRETATION BLAIR STATUS POS Escherichia coli Amikacin S <=2 V Ampicillin R >=32 V Ampicillin/Sulbactam I 16 V Cefazolin S <=4 V Ciprofloxacin S <=0.25 V Ceftriaxone S <=1 V Nitrofurantoin I 64 V Cefepime S <=1 V Cefoxitin S <=4 V Gentamicin S <=1 V Meropenem S <=0.25 V Levofloxacin S <=0.12 V Tobramycin S <=1 V Piperacillin/Tazobactam S <=4 V Trimethoprim/Sulfa S <=20 V Ceftazidime S <=1 V Normal [facility] Comment on above: Performed By: #### U CI #### [facility] [address] [place] [address] CT Abd Pelvis w/o IV Cont St one Prot.on 09-14-2021 CT Abd Pelvis w/o IV Cont Stone Prot. EXAMINATION: CT Abd Pelvis w/o IV Cont Stone Prot., , 09/13/2021 8:12 PM EDT INDICATION: Bilateral flank pain. HISTORY: Ordering Provider Reason for Exam: Technologist Note: Additional: COMPARISON: None. TECHNIQUE: CT scan of the abdomen and pelvis was performed without IV contrast. CT dose reduction technique was used, including Automated Exposure Control. FINDINGS: Lung bases clear. No pleural effusion. Heart size normal. No pericardial effusion. Liver normal. Gallbladder normal. No abnormal bile duct dilatation. Pancreas normal. Spleen normal. Adrenal glands normal. No renal calculi. No hydronephrosis. No ureteral stones. Stomach normal. Duodenum normal. No small bowel obstruction. No bowel wall thickening. Normal appendix. The colon is unremarkable. Aorta normal. Inferior vena cava normal. No lymphadenopathy. No ascites. No free air. Pelvis, bladder normal. Uterus normal. Ovaries normal. Small amount of free fluid in the pelvis. Rectum is normal. No pelvic lymphadenopathy. No acute compression fracture. No suspicious osseous lesions. IMPRESSION: 1. No renal calculi or hydronephrosis. 2. There is no bowel obstruction or inflammation. Appendix normal. 3. Normal amount of free fluid in the pelvis likely physiologic. The uterus and ovaries appear normal. Final Dictated by: John Cordon MD Dictated DT/TM: 09.13.2021 8:43 pm Signed by: John Cordon MD Signed (Electronic Signature): 09.13.2021 10:02 pm Transcribed DT/TM: 09.13.2021 8:51 pm (If Report Is Signed, Electronically Signed in Other Vendor System) Normal [facility] ED Clinical Summaryon 2021 ED Clinical Summary (Inserted Image. Michelle ble to display) [address] [place] [address] ED Clinical Summary Person Information Name: Debo Swann/Bobbi Age: 21 Years : 2000 Sex: Female PCP: Marital Status: Single Phone: Race: White Ethnicity: Not or Language: Northern Irish [facility]: [id number] Visit Reason: Flank pain; Back or neck pain Acuity: 3 Enc Type: Emergency Med Service: Emergency Medicine Arrival: 09/13/2021 18:41:23 Discharge: 09/14/2021 00:19:00 LOS: 000 05:38 Checkin: 09/13/2021 18:41:23 Checkout: 09/14/2021 00:19:00 Dispo Type: Home or Self Care Address: [address] [place] [address] [place] [address] Provider Notes: History of Present Illness 21-year-old female presents to the emergency department with right flank pain that is radiating anteriorly into her right?lower abdomen. ?She states the pain has been ongoing for the past 4 hours. ?She states the pain waxes and wanes?in intensity.? She states the pain is 10/10 in severity.? She denies any fevers or chills. ?She denies any nausea or vomiting. ?She states that she had similar pain when she had a right ovarian cyst. ?She denies any vaginal bleeding or discharge Review of Systems GENERAL: Negative for fevers, chills, and sweats. Negative for generalized weakness EYES: Negative for pain, redness, discharge ENT: Negative sore throat, nasal congestion, ear pain NECK: Negative for pain and swelling CARDIOVASCULAR: Negative for chest pain, palpitations RESPIRATORY: Negative for shortness of breath, cough, wheezing, and pleuritic chest pain ABDOMEN/GI: Negative for pain, nausea, vomiting BACK: Negative for pain and injury : Negative for dysuria and hematuria? MUSCULOSKELETAL: Negative for muscle and joint pain SKIN: Negative for rash and discoloration NEURO: Negative for focal weakness, numbness, and tingling Physical Exam CONSTITUTIONAL: no apparent respiratory distress, nontoxic appearing SKIN: warm, dry, no rash EYES: pupils are equally round and reactive to light, extraocular movements intact, conjunctiva noninjected HENT: normocephalic, atraumatic, moist mucus membranes, trachea midline NECK: Nontender, supple, full range of motion CARDIOVASCULAR: regular rate, rhythm, normal S1 and S2. No appreciated murmurs. Strong radial pulses with intact distal perfusion PULMONARY: clear to auscultation without wheezes, rhonchi, or rales GASTROINTESTINAL: soft, non-tender, non-distended, no palpable masses, no rebound or guarding GENITOURINARY: No costovertebral angle tenderness to palpation MUSCULOSKELETAL: Extremities are nontender to palpation and have no gross deformity, no edema, redness, or swelling BACK: No midline tenderness. No muscle spasm NEUROLOGIC: awake, alert, and oriented x 3 Reexamination/Reevaluat ion Stable Diagnosis: 1:UTI (urinary tract infection) Problems No Problems Documented Smoking Status: Smoking Status 4 or less cigarettes(less than 1/4 pack)/day in last 30 days Functional Status: Sensory Deficits: History of Falls: Mobility Assistance Prior to Admission: ADLs: Current Level of Assistance for Self-Care/Mobility: Cognitive Status: Allergies No Known Medication Allergies Laboratory or Other Results This Visit (last charted value for your 09/13/2021 visit) Hematology 09/13/2021 6:55 PM WBC: 11.0 x10 RBC: 4.68 x10 Neutro Auto: 73.2 % -- Normal range between ( 47.2 and 70.8 ) Lymph Auto: 19.1 % -- Normal range between ( 27.2 and 40.8 ) Davidson Auto: 5.6 % -- Normal range between ( 3.7 and 11.9 ) Eos Auto: 1.6 % -- Normal range between ( 0.0 and 5.4 ) Basophil Auto: 0.5 % -- Normal range between ( 0.0 and 1.5 ) Baso Absolute: 0.1 x10 MCV: 76.9 fL -- Normal range between ( 80.0 and 100.0 ) MCHC: 32.9 % -- Normal range between ( 31.0 and 37.0 ) Lymph Absolute: 2.1 x10 Hct: 36.0 % -- Normal range between ( 36.0 and 46.0 ) Davidson Absolute: 0.6 x10 MCH: 25.3 pg -- Normal range between ( 27.0 and 35.0 ) Neutro Absolute: 8.0 x10 Hgb: 11.8 g/dL -- Normal range between ( 12.0 and 16.0 ) Mean Platelet Volume: 10.7 fL -- Normal range between ( 6.7 and 10.6 ) Platelet: 183 x10 Eos Absolute: 0.2 x10 RDW: 14.8 % -- Normal range between ( 11.6 and 14.8 ) Urinalysis 09/13/2021 9:27 PM UA Color: Light-Yellow UA Urobilinogen: Normal mg/dL UA Bili: Negative UA Ketones: 80 mg/dL UA Leukocyte Esterase: 500 UA Nitrite: Negative UA Glucose: Normal mg/dL UA Bacteria: Present /HPF UA Protein: 50 mg/dL UA Blood: 2+ UA Spec Grav: 1.014 -- Normal range between ( 1.003 and 1.035 ) UA pH: 7.0 UA Clarity: Turbid UA Source: Clean Catch UA Mucus: Present /LPF UA WBC Quant: 206 /HPF -- Normal range between ( 0 and 5 ) UA RBC Quant: 10 /HPF -- Normal range between ( 0 and 5 ) UA Squepi Cells Quant: 1 /HPF -- Normal range between ( 0 and 29 ) Chemistry 09/13/2021 9:27 PM Urine Preg: Negative 08/26 (more content not included)... Normal [facility] ED Note-Physicianon 09-15-19 ED Note-Physician Chief Complaint right sided flank pain since 2:45 pm ED Attending Attestation Patient seen evaluate emergency by Dr. Gr. Signed out to me pending imaging. Patient CT and ultrasound both done. Patient denies any vaginal bleeding or discharge. Patient did not have any acute abnormality. Has blood and evidence of UTI. Started treatment for that. Sent home on antibiotics. Did discuss with the patient on differential diagnosis. Follow-up with primary care physician in few days. Have repeat urine. Return cautions discussed. Patient was discharged home in stable condition. Plan of care was also discussed with family at bedside. Attending Note Vitals & Measurements T: 36.7 ?C (Oral) HR: 87 (Peripheral) RR: 18 BP: 99/63 SpO2: 100% HT: 139.7 cm WT: 68 kg (Dosing) Lab Results Automated Hematology LATEST RESULTS WBC 09/13/21 18:55 11.0 RBC 09/13/21 18:55 4.68 Hgb 09/13/21 18:55 11.8 Low Hct 09/13/21 18:55 36.0 MCV 09/13/21 18:55 76.9 Low MCH 09/13/21 18:55 25.3 Low MCHC 09/13/21 18:55 32.9 RDW 09/13/21 18:55 14.8 Platelet 09/13/21 18:55 183 Mean Platelet Volume 09/13/21 18:55 10.7 High Neutro Auto 09/13/21 18:55 73.2 High Lymph Auto 09/13/21 18:55 19.1 Low Davidson Auto 09/13/21 18:55 5.6 Eos Auto 09/13/21 18:55 1.6 Basophil Auto 09/13/21 18:55 0.5 Neutro Absolute 09/13/21 18:55 8.0 High Lymph Absolute 09/13/21 18:55 2.1 Davidson Absolute 09/13/21 18:55 0.6 Eos Absolute 09/13/21 18:55 0.2 Baso Absolute 09/13/21 18:55 0.1 Routine Chemistry LATEST RESULTS Sodium Lvl 09/13/21 18:55 137 Potassium Lvl 09/13/21 18:55 3.9 Chloride 09/13/21 18:55 103 CO2 09/13/21 18:55 23 Anion Gap 09/13/21 18:55 15 Glucose Lvl 09/13/21 18:55 82 BUN 09/13/21 18:55 9 Creatinine Lvl 09/13/21 18:55 0.62 Estimated GFR 09/13/21 18:55 >60 BUN Crea Ratio 09/13/21 18:55 14.5 Bili Total 09/13/21 18:55 0.6 Bili Direct 09/13/21 18:55 0.1 Bili Indirect 09/13/21 18:55 0.5 Alk Phos 09/13/21 18:55 61 AST 09/13/21 18:55 19 ALT 09/13/21 18:55 14 Total Protein 09/13/21 18:55 7.7 Albumin Lvl 09/13/21 18:55 4.5 Calcium Lvl 09/13/21 18:55 9.5 Lipase Lvl 09/13/21 18:55 24 Magnesium Lvl 09/13/21 18:55 1.9 Testing LATEST RESULTS HISTORICAL RESULTS Serum Preg 09/13/21 19:35 Negative Urine Preg 09/13/21 21:27 Negative 08/31/21 Negative UA Macroscopic LATEST RESULTS HISTORICAL RESULTS UA Source 09/13/21 21:27 Clean Catch 08/31/21 Clean Catch UA Color 09/13/21 21:27 Light-Yellow 08/31/21 Yellow UA Clarity 09/13/21 21:27 Turbid 08/31/21 Clear UA Spec Grav 09/13/21 21:27 1.014 08/31/21 1.025 UA pH 09/13/21 21:27 7.0 08/31/21 6.5 UA Protein 09/13/21 21:27 50 Abnormal 08/31/21 10 UA Glucose 09/13/21 21:27 Normal 08/31/21 Normal UA Bili 09/13/21 21:27 Negative 08/31/21 Negative UA Urobilinogen 09/13/21 21:27 Normal 08/31/21 Normal UA Leukocyte Esterase 09/13/21 21:27 500 Abnormal 08/31/21 Negative UA Nitrite 09/13/21 21:27 Negative 08/31/21 Negative UA Ketones 09/13/21 21:27 80 Abnormal 08/31/21 Negative UA Blood 09/13/21 21:27 2+ Abnormal 08/31/21 1+ Abnormal UA Microscopic LATEST RESULTS HISTORICAL RESULTS UA RBC Quant 09/13/21 21:27 10 High 08/31/21 0 UA WBC Quant 09/13/21 21:27 206 High 08/31/21 1 UA Mucus 09/13/21 21:27 Present Abnormal 08/31/21 Present Abnormal UA Bacteria 09/13/21 21:27 Present Abnormal UA Squepi Cells Quant 09/13/21 21:27 1 08/31/21 6 Diagnostic Results Computerized Tomagraphy CT Abd Pelvis w/o IV Cont Stone Prot. 09/13/21 22:02:07 IMPRESSION: 1. No renal calculi or hydronephrosis. 2. There is no bowel obstruction or inflammation. Appendix normal. 3. Normal amount of free fluid in the pelvis likely physiologic. The uterus and ovaries appear normal. Signed By: John Cordon MD Ultrasound US Transvaginal w/ Duplex 09/13/21 23:42:09 IMPRESSION: Unremarkable pelvic ultrasound. Signed By: Remedios Cordoba DO Electronically signed by ___ Rik Hansen MD 09/14/21 02:30 EDT Normal [facility] US Transvaginal w/ Duplexon 09-14-2021 US Transvaginal w/ Duplex US Transvaginal w/ Duplex HISTORY: Pelvic Pain COMPARISONS: CT scan from the same day. There is an older pelvic ultrasound dated 06/13/2018 which is also available for correlation. TECHNIQUE: Transvaginal imaging of the pelvis was performed. FINDINGS: UTERUS: Normal in size and echogenicity. The uterus measures 8.2 x 3.7 x 4.2 cm. MYOMETRIUM:Unremarkable . ENDOMETRIUM: The endometrium is within normal limits. The endometrium measures0.96 cm which is within normal limits. RIGHT OVARY: Within normal limits without suspicious masses or cyst. There is normal blood flow. The right ovary measures 3.2 x 2.4 x 2.6 cm. LEFT OVARY: Within normal limits without suspicious masses or cyst. There is normal blood flow. The left ovary measures 3.4 x 3.4 x 1.6 cm. OTHER:There is a small amount of physiologic free fluid in the cul-de-sac. IMPRESSION: Unremarkable pelvic ultrasound. Final Dictated by: Remedios Cordoba DO Dictated DT/TM: 09/13/2021 11:40 pm Signed by: Remedios Cordoba DO Signed (Electronic Signature): 09/13/2021 11:42 pm (If Report Is Signed, Electronically Signed in Other Vendor System) Normal [facility] .UA Microscp Aon 09-13-2021 UA Bacteria Present Abnormal Absent [facility] Comment on above: Performed By: #### L IVER #### [address] [address] UA Mucus Present Abnormal Absent [facility] Comment on above: Performed By: #### L IVER #### [address] [place] [address] UA RBC Quant 10 /HPF High 0-5 [facility] Comment on above: Performed By: #### L IVER #### [place] [address] [place] [address] UA Squepi Cells Quant 1 /HPF Normal 0-29 [facility] Comment on above: Performed By: #### L IVER #### [address] [address] UA WBC Quant 206 /HPF High 0-5 [facility] Comment on above: Performed By: #### L IVER #### [address] [address] .eGFRon 09-13-2021 GFR/1.73 sq M.predicted MDRD (S/P/Bld) [Vol rate/Area] mL/min/{1.73_m2} Normal >=60 [facility] Comment on above: Result Comment: [facility] have implemented the eGFR calculation approach that does not have a coefficient for race and that conforms to the NKF-ASN Task Force Recommendations. Stages of Chronic Kidney Disease GFR Stage 3a Mild to moderate loss of kidney function 59 to 45 Stage 3b Moderate to severe loss of kidney function 44 to 33 Stage 4 Severe loss of kidney function 29 to 15 Stage 5 Kidney failure Less than 15 GFR calculated using the CKD-Epi Creatinine Equation (2020): eGFR = 142 X min(SCr/?, 1)? X max(SCr /?, 1)-1.200 X 0.9938Age X 1.012 [if female] Abbreviations/Units: eGFR (estimated glomerular filtration rate) = mL/min/1.73 m2 SCr (standardized serum creatinine) = mg/dL ? = 0.7 (females) or 0.9 (males) ? = -0.241 (females) or -0.302 (males) min = indicates the minimum of SCr/? or 1 max = indicates the maximum of SCr/? or 1 Age = years Performed By: #### L IVER #### [address] [address] Basic Metabolic Profileon Anion gap [Moles/Vol] 15 mmol/L Normal 7-17 [facility] Comment on above: Performed By: #### C [id number] #### [address] [address] Calcium [Mass/Vol] 9.5 mg/dL Normal 8.5-10.3 [facility] Comment on above: Performed By: #### C [id number] #### [address] [address] Chloride [Moles/Vol] 103 mmol/L Normal 98-110 [facility] Comment on above: Performed By: #### C [id number] #### [address] [address] CO2 [Moles/Vol] 23 mmol/L Normal 22-32 [facility] Comment on above: Performed By: #### C [id number] #### [address] [address] Creatinine [Mass/Vol] 0.62 mg/dL Normal 0.44-1.03 [facility] Comment on above: Performed By: #### C [id number] #### [address] [address] Glucose [Mass/Vol] 82 mg/dL Normal 70-99 [facility] Comment on above: Performed By: #### C [id number] #### [address] [address] Potassium [Moles/Vol] 3.9 mmol/L Normal 3.4-4.8 [facility] Comment on above: Performed By: #### C [id number] #### [address] [address] Sodium [Moles/Vol] 137 mmol/L Normal 133-142 [facility] Comment on above: Performed By: #### C [id number] #### [address] [address] Urea nitrogen [Mass/Vol] 9 mg/dL Normal 8-26 [facility] Comment on above: Performed By: #### C [id number] #### [place] [id number] Urea nitrogen/Creatinine [Mass ratio] 14.5 mg/mg Normal 10.0-20.0 [facility] Comment on above: Performed By: #### C [id number] #### [place] [id number] CBC w/ Diffon 09-13-2021 Erythrocyte distribution width (RBC) [Ratio] 14.8 % Normal 11.6-14.8 [facility] Comment on above: Performed By: #### U CI #### [place] [id number] Hematocrit (Bld) [Volume fraction] 36.0 % Normal 36.0-46.0 [facility] Comment on above: Performed By: #### U CI #### [place] [id number] Hemoglobin (Bld) [Mass/Vol] 11.8 g/dL Low 12.0-16.0 [facility] Comment on above: Performed By: #### U CI #### [place] [id number] MCH (RBC) [Entitic mass] 25.3 pg Low 27.0-35.0 [facility] Comment on above: Performed By: #### U CI #### [place] [id number] MCHC 32.9 % Normal 31.0-37.0 [facility] Comment on above: Performed By: #### U CI #### [place] [id number] MCV (RBC) [Entitic vol] 76.9 fL Low 80.0-100.0 [facility] Comment on above: Performed By: #### U CI #### [place] [id number] Platelet 183 x10*3/mcL Normal 150-350 [facility] Comment on above: Performed By: #### U CI #### [address] [address] Platelet mean volume (Bld) [Entitic vol] 10.7 fL High 6.7-10.6 [facility] Comment on above: Performed By: #### U CI #### [address] [address] RBC 4.68 x10*6/mcL Normal 3.80-5.20 [facility] Comment on above: Performed By: #### U CI #### [address] [address] WBC 11.0 x10*3/mcL Normal 4.5-11.0 [facility] Comment on above: Performed By: #### U CI #### [address] [address] Diff Autoon 09-13-2021 Baso Absolute 0.1 x10*3/mcL Normal 0.0-0.2 [facility] Comment on above: Performed By: #### . Automated Diff #### [address] [address] Basophils/100 WBC (Bld) 0.5 % Normal 0.0-1.5 [facility] Comment on above: Performed By: #### . Automated Diff #### [address] [address] Eos Absolute 0.2 x10*3/mcL Normal 0.0-0.4 [facility] Comment on above: Performed By: #### . Automated Diff #### [address] [address] Eosinophils/100 WBC (Bld) 1.6 % Normal 0.0-5.4 [facility] Comment on above: Performed By: #### . Automated Diff #### [address] [address] Lymph Absolute 2.1 x10*3/mcL Normal 1.0-4.8 [facility] Comment on above: Performed By: #### . Automated Diff #### [address] [address] Lymphocytes/100 WBC (Bld) 19.1 % Low 27.2-40.8 [facility] Comment on above: Performed By: #### . Automated Diff #### [address] [address] Davidson Absolute 0.6 x10*3/mcL Normal 0.1-1.1 [facility] Comment on above: Performed By: #### . Automated Diff #### [address] [address] Monocytes/100 WBC (Bld) 5.6 % Normal 3.7-11.9 [facility] Comment on above: Performed By: #### . Automated Diff #### [address] [address] Neutro Absolute 8.0 x10*3/mcL High 1.8-7.7 [facility] Comment on above: Performed By: #### . Automated Diff #### [address] [address] Neutro Auto 73.2 % High 47.2-70.8 [facility] Comment on above: Performed By: #### . Automated Diff #### [address] [address] ED Note-Physicianon 09-14-19 ED Note-Physician Chief Complaint right sided flank pain since 2:45 pm History of Present Illness 21-year-old female presents to the emergency department with right flank pain that is radiating anteriorly into her right lower abdomen. She states the pain has been ongoing for the past 4 hours. She states the pain waxes and wanes in intensity. She states the pain is 10/10 in severity. She denies any fevers or chills. She denies any nausea or vomiting. She states that she had similar pain when she had a right ovarian cyst. She denies any vaginal bleeding or discharge Review of Systems GENERAL: Negative for fevers, chills, and sweats. Negative for generalized weakness EYES: Negative for pain, redness, discharge ENT: Negative sore throat, nasal congestion, ear pain NECK: Negative for pain and swelling CARDIOVASCULAR: Negative for chest pain, palpitations RESPIRATORY: Negative for shortness of breath, cough, wheezing, and pleuritic chest pain ABDOMEN/GI: Negative for pain, nausea, vomiting BACK: Negative for pain and injury : Negative for dysuria and hematuria MUSCULOSKELETAL: Negative for muscle and joint pain SKIN: Negative for rash and discoloration NEURO: Negative for focal weakness, numbness, and tingling Physical Exam CONSTITUTIONAL: no apparent respiratory distress, nontoxic appearing SKIN: warm, dry, no rash EYES: pupils are equally round and reactive to light, extraocular movements intact, conjunctiva noninjected HENT: normocephalic, atraumatic, moist mucus membranes, trachea midline NECK: Nontender, supple, full range of motion CARDIOVASCULAR: regular rate, rhythm, normal S1 and S2. No appreciated murmurs. Strong radial pulses with intact distal perfusion PULMONARY: clear to auscultation without wheezes, rhonchi, or rales GASTROINTESTINAL: soft, non-tender, non-distended, no palpable masses, no rebound or guarding GENITOURINARY: No costovertebral angle tenderness to palpation MUSCULOSKELETAL: Extremities are nontender to palpation and have no gross deformity, no edema, redness, or swelling BACK: No midline tenderness. No muscle spasm NEUROLOGIC: awake, alert, and oriented x 3 Vitals & Measurements T: 36.7 ?C (Oral) HR: 75 (Peripheral) BP: 113/58 SpO2: 100% HT: 139.7 cm WT: 68 kg (Dosing) Additional Vitals No qualifying data available. Procedure No qualifying data available. ASA Documentation Medical Decision Making 21-year-old female presents to the emergency department with complaints of right flank pain that radiates anteriorly into her lower abdomen. Her examination did not reveal any significant abnormalities. Basic labs and a CT scan were ordered for further evaluation. She was given IV fluids in addition to medication for her symptoms The patient's laboratory analyses did not reveal any acute abnormalities. The patient CT scan is pending will be signed out to the oncoming physician Reexamination/Reevaluat ion Stable Assessment/Plan Flank pain (Complaint of) Orders: CT Abd Pelvis w/o IV Cont Stone Prot. Test, Urine, Qualitative Urinalysis with Culture, if indicated Refresh vitals and sections below: Problem List/Past Medical History Ongoing No qualifying data Historical No qualifying data Procedure/Surgical History No recent procedure Medications Inpatient fentaNYL, 50 mcg= 1 mL, IV Push, Once NS Bolus, 1000 mL, IV Bolus, Once Zofran, 4 mg= 2 mL, IV Push, Once Home No active home medications Allergies No Known Medication Allergies Social History Alcohol Current, Beer, 1-2 times per month Substance Abuse Denies All Tobacco 4 or less cigarettes(less than 1/4 pack)/day in last 30 days Use:. Cigarettes Family History Reviewed and noncontributory Lab Results Automated Hematology LATEST RESULTS WBC 09/13/21 18:55 11.0 RBC 09/13/21 18:55 4.68 Hgb 09/13/21 18:55 11.8 Low Hct 09/13/21 18:55 36.0 MCV 09/13/21 18:55 76.9 Low MCH 09/13/21 18:55 25.3 Low MCHC 09/13/21 18:55 32.9 RDW 09/13/21 18:55 14.8 Platelet 09/13/21 18:55 183 Mean Platelet Volume 09/13/21 18:55 10.7 High Neutro Auto 09/13/21 18:55 73.2 High Lymph Auto 09/13/21 18:55 19.1 Low Davidson Auto 09/13/21 18:55 5.6 Eos Auto 09/13/21 18:55 1.6 Basophil Auto 09/13/21 18:55 0.5 Neutro Absolute 09/13/21 18:55 8.0 High Lymph Absolute 09/13/21 18:55 2.1 Davidson Absolute 09/13/21 18:55 0.6 Eos Absolute 09/13/21 18:55 0.2 Baso Absolute 09/13/21 18:55 0.1 Routine Chemistry LATEST RESULTS Sodium Lvl 09/13/21 18:55 137 Potassium Lvl 09/13/21 18:55 3.9 Chloride 09/13/21 18:55 103 CO2 09/13/21 18:55 23 Anion Gap 09/13/21 18:55 15 Glucose Lvl 09/13/21 18:55 82 BUN 09/13/21 18:55 9 Creatinine Lvl 09/13/21 18:55 0.62 Estimated GFR 09/13/21 18:55 >60 BUN Crea Ratio 09/13/21 18:55 14.5 Bili Total 09/13/21 18:55 0.6 Bili Direct 09/13/21 18 (more content not included)... Normal [facility] Hep Func Panelon 09-13-2021 Albumin [Mass/Vol] 4.5 g/dL Normal 3.2-4.9 [facility] Comment on above: Performed By: #### L IVER #### [address] [address] Alk Phos 61 IU/L Normal 32-91 [facility] Comment on above: Performed By: #### L IVER #### [address] [address] ALT [Catalytic activity/Vol] 14 U/L Normal 14-54 [facility] Comment on above: Performed By: #### L IVER #### [address] [address] AST [Catalytic activity/Vol] 19 U/L Normal 15-41 [facility] Comment on above: Performed By: #### L IVER #### [address] [address] Bili Direct 0.1 mg/dL Normal 0.1-0.5 [facility] Comment on above: Performed By: #### L IVER #### [address] [address] Bili Indirect 0.5 mg/dL Normal 0.0-1.0 [facility] Comment on above: Performed By: #### L IVER #### [address] [address] Bili Total 0.6 mg/dL Normal 0.3-1.2 [facility] Comment on above: Performed By: #### L IVER #### [address] [address] Protein [Mass/Vol] 7.7 g/dL Normal 6.5-8.1 [facility] Comment on above: Performed By: #### L IVER #### [address] [address] Lipaseon 09-13-2021 Lipase Lvl 24 IU/L Normal 22-51 [facility] Comment on above: Performed By: #### L IVER #### [address] [address] Magnesiumon 09-13-2021 Magnesium [Mass/Vol] 1.9 mg/dL Normal 1.7-2.4 [facility] Comment on above: Performed By: #### C [id number] #### [address] [address] S Preg Qlon 09-13-2021 Serum Preg Negative Normal [facility] Comment on above: Result Comment: The hCG Combo Rapid Test has a sensitivity of 10 mIU/mL in serum and is capable of detecting as early as 1 day after the first missed menses. Performed By: #### L IVER #### [address] [address] UA w Culture if Indon 2021 Color (U) Light-Yellow Normal [facility] Comment on above: Performed By: #### U CI #### [address] [address] Ketones Ql (U) 80 mg/dL Abnormal Negative [facility] Comment on above: Performed By: #### U CI #### [address] [address] UA Blood 2+ Abnormal Negative [facility] Comment on above: Performed By: #### U CI #### [address] [address] UA Clarity Turbid Normal [facility] Comment on above: Performed By: #### U CI #### [address] [address] UA Glucose Normal Normal Negative [facility] Comment on above: Performed By: #### U CI #### [address] [address] UA Leukocyte Esterase 500 Abnormal Negative [facility] Comment on above: Performed By: #### U CI #### [address] [address] UA Nitrite Negative Normal Negative [facility] Comment on above: Performed By: #### U CI #### [address] [address] UA pH 7.0 Normal 4.5 - 7.8 [facility] Comment on above: Performed By: #### U CI #### [address] [address] UA Protein 50 mg/dL Abnormal Negative [facility] Comment on above: Performed By: #### U CI #### [address] [address] UA Source Clean Catch Normal [facility] Comment on above: Performed By: #### U CI #### [place] [id number] UA Spec Grav 1.014 Normal 1.003-1.035 [facility] Comment on above: Performed By: #### U CI #### [address] [address] UA Urobilinogen Normal Normal 0.2 - 1.0 [facility] Comment on above: Performed By: #### U CI #### [place] [id number] Urobilinogen (U) [Mass/Vol] Negative Normal Negative [facility] Comment on above: Performed By: #### U CI #### [address] [address] ED Clinical Summaryon 2021 ED Clinical Summary (Inserted Image. Mihcelle ble to display) [place] [id number] ED Clinical Summary Person Information Name: Debo Swann [place] Age: 21 Years : 2000 Sex: Female PCP: Marital Status: Single Phone: Race: White Ethnicity: Not or Language: Northern Irish Visit Reason: Dizziness; Dizziness Acuity: 3 Enc Type: Emergency Med Service: Emergency Medicine Arrival: 08/31/2021 19:49:20 Discharge: 08/31/2021 22:28:00 LOS: 000 02:39 Checkin: 08/31/2021 19:49:20 Checkout: 08/31/2021 22:28:00 Dispo Type: Home or Self Care Address: [address] [place] [address] [place] [address] Provider Notes: Diagnosis: Nausea in adult; Vasovagal reaction Problems No Problems Documented Smoking Status: Smoking Status 4 or less cigarettes(less than 1/4 pack)/day in last 30 days Functional Status: Sensory Deficits: History of Falls: Mobility Assistance Prior to Admission: ADLs: Current Level of Assistance for Self-Care/Mobility: Cognitive Status: Allergies No Known Medication Allergies Laboratory or Other Results This Visit (last charted value for your 08/31/2021 visit) Urinalysis 08/31/2021 8:29 PM UA Color: Yellow UA Urobilinogen: Normal mg/dL UA Bili: Negative UA Ketones: Negative mg/dL UA Leukocyte Esterase: Negative UA Nitrite: Negative UA Glucose: Normal mg/dL UA Protein: 10 mg/dL UA Blood: 1+ UA Spec Grav: 1.025 -- Normal range between ( 1.003 and 1.035 ) UA pH: 6.5 UA Clarity: Clear UA Source: Clean Catch UA Mucus: Present /LPF UA WBC Quant: 1 /HPF -- Normal range between ( 0 and 5 ) UA RBC Quant: 0 /HPF -- Normal range between ( 0 and 5 ) UA Squepi Cells Quant: 6 /HPF -- Normal range between ( 0 and 29 ) Chemistry 08/31/2021 8:29 PM Urine Preg: Negative Measurements: Height: Weight: 75.9 kg Blood Pressure: /80 mmHg BMI: Procedures No Procedures Documented Immunizations No Immunizations Documented This Visit Final Med List: New Medications [id number], [address] [phone], [phone] ondansetron (Zofran ODT 4 mg oral tablet, disintegrating) 1 Tabs Oral (given by mouth) every 8 hours as needed as needed for nausea/vomiting for 3 Days. Refills: 0. Last Dose: __ [facility] #[id number], [address] [place], [place] [id number], [phone] ondansetron (Zofran ODT 4 mg oral tablet, disintegrating) 1 Tabs Oral (given by mouth) every 8 hours as needed as needed for nausea/vomiting for 3 Days. Refills: 0. Care Team Members: Attending Physician: Na Osullivan Consulting Physician: Referring Physician: Provider Role Assigned Unassigned Na Osullivan ED MidLevel 08/31/2021 19:54:40 Gabby [place] ED Nurse 08/31/2021 20:53:23 Follow up: With: Address: When: Return to the ER: Fevers not responding to Tylenol or ibuprofen, chest pain or breathing difficulty, abdominal pain, blood in your stool, weakness; or any other concerning symptoms. With: Address: When: Please establish yourself with a family physician for reevaluation. Tylenol and ibuprofen as directed [id number] for pain or fevers. Zofran ODT as prescribed to help with nausea. With: Address: When: [address] [phone] Business (1) Discharge Orders: Discharge Patient 08/31/21 21:54:00 EDT, Discharge to Home, Self Return to Work/School 08/31/21 21:54:00 EDT, 09/02/21 7:00:00 EDT, 08/31/21 21:54:00 EDT Patient Education Information: Vomiting (Adult); Near Syncope, Vasovagal [facility] Poison Help line: . [facility] Hotline: [place] Tobacco Quit Line: [place], [place]) [address]: [phone] [place], [place]) [address]: [phone] [facility] [address] [facility], [place]: [phone] Normal [facility] ED Note-Physicianon 09-02-19 ED Note-Physician Chief Complaint pt states I have been feeling dizzy at work for the last week, when I leave I usually feel fine but not today. History of Present Illness This is a nontoxic-appearing 21-year-old female reports around 3 or 4 PM this evening while at work she started feeling nauseous, started feeling dizziness described as lightheaded feeling, she had no abdominal pain or vomiting with this no chest pain or breathing difficulty; she does report that she has a mild frontal headache since arriving to the emergency department, she was concerned for the symptoms prompting her to come to the emergency department for further evaluation. Patient reports that she could possibly be as well: LMP 08/10/2021. This is not associated with any falls or traumas. Patient is requesting a work note. Review of Systems CONSTITUTIONAL: NO FEVERS OR CHILLS, NO ATYPICAL FATIGUE NEURO: Positive for frontal headache not worst of life or sudden onset. No numbness OR FOCAL WEAKNESS HEENT: NO NASAL CONGESTION OR EYE PAIN/DRAINAGE CARDIAC: Positive for dizziness, NO CHEST PAIN OR HEART PALPITATIONS PULMONARY: NO SHORTNESS OF BREATHING OR ACUTE BREATHING DIFFICULTY ABDOMEN: Positive for nausea, no vomiting VOMITING OR ABDOMINAL PAIN : NO URINARY FREQUENCY OR DYSURIA MUSCULOSKELETAL: No acute neck or back pain. SKIN: NO SKIN RASHES OR UNUSUAL BRUISING Physical Exam CONSTITUTIONAL: well appearing in no acute distress SKIN: Warm, dry, and intact without rash EYES: bilaterally sclera white and conjunctiva clear. Bilateral pupils PERRL 3 mm. EOMI. No nystagmus. HENT: Normocephalic, atraumatic, moist mucus membranes posterior pharynx no erythema exudate or swelling uvula is midline no swelling. Bilateral tympanic membranes positive light reflex no erythema. NECK: no obvious swelling, normal range of motion PULMONARY: normal chest rise and fall, no respiratory distress or stridor. Anterior posterior lung sounds are clear. CARDIOVASCULAR: regular rate and rhythm, distal extremities are warm and well perfused no edema. Bilateral pedal pulses 2+ and equal. GASTROINSTESTINAL: nondistended, non-tender, soft, no palpable masses no peritoneal signs guarding or rigidity. NEUROLOGIC: normal speech, moves all extremities, cranial nerves II through XII grossly intact no focal motor or sensory deficits 5 out of 5 motor strength bilateral upper lower extremities. Normal gait. MUSCULOSKELETAL: Bilateral upper lower extremities no swelling, no gross deformities, atraumatic PSYCHIATRIC: normal mood, normal speech Vitals & Measurements T: 36.7 ?C (Oral) HR: 77 (Peripheral) RR: 16 BP: 126/80 BP: 108/68(Sitting) BP: 106/71(Standing) BP: 101/65(Supine) SpO2: 100% WT: 75.9 kg (Dosing) Additional Vitals No qualifying data available. Procedure No qualifying data available. ASA Documentation Medical Decision Making Twelve-lead EKG reviewed per the attending physician without acute ischemic or conduction changes sinus rhythm 73 bpm reviewed per the attending physician Dr. Flores Patient's orthostatic vital signs negative. Patient was given Zofran ODT in the department to help with the nausea. Urine test is negative, urinalysis shows no concerning features for urinary tract infection or significant dehydration. The patient had an episode of woozy lightheaded feeling without syncope while she was experiencing a episode of nausea this evening at work, most likely vasovagal response, she has no abdominal pain abdomen is soft and nontender on exam, on reevaluation she feels better after the Zofran ODT, IM Toradol was ordered to help with her headache she declined. She does feel comfortable going home she is not currently following with a family physician I put the [facility] information on the patient's discharge paperwork so she can establish with a family physician. We discussed reasons to return to the emergency department state on the discharge paperwork she is discharged ambulatory in no acute distress with stable vital signs. She was provided with a work note at her request. Assessment/Plan Dizziness (Complaint of) Nausea in adult Vasovagal reaction Orders: ondansetron, 1 tabs, Oral, q8hr, PRN, X 3 days, # 10 tabs, 0 Refill(s), 09/03/21 21:54:00 EDT, Pharmacy: [facility]/pharmacy #[id number] Discharge Patient EKG Return to Work/School Refresh vitals and sections below: Problem List/Past Medical History Ongoing No qualifying data Historical No qualifying data Medications Inpatient No active inpatient medications Home Zofran ODT 4 mg oral tablet, disintegrating, 4 mg= 1 tabs, Oral, q8hr, PRN Allergies No Known Medication Allergies Social History Alcohol Current, Beer, 1-2 times per month Substance Abuse Denies All Tobacco 4 or less cigarettes(less than 1/4 pack)/day in last 30 days Use:. Cigarettes Lab Results Testing LATEST RESULTS Urine Preg 08/31/21 20:29 Negative UA Macroscopic LATEST RESUL (more content not included)... Normal [facility] .UA Microscp Aon 08-31-2021 UA Mucus Present Abnormal Absent [facility] Comment on above: Performed By: #### U CI #### [place] [id number] UA RBC Quant 0 /HPF Normal 0-5 [facility] Comment on above: Performed By: #### U CI #### [address] [address] UA Squepi Cells Quant 6 /HPF Normal 0-29 [facility] Comment on above: Performed By: #### U CI #### [place] [id number] UA WBC Quant 1 /HPF Normal 0-5 [facility] Comment on above: Performed By: #### U CI #### [address] [address] UA w Culture if Indon 2021 Color (U) Yellow Normal [facility] Comment on above: Performed By: #### L IVER #### [address] [address] Ketones Ql (U) Negative Normal Negative [facility] Comment on above: Performed By: #### L IVER #### [place] [id number] UA Blood 1+ Abnormal Negative [facility] Comment on above: Performed By: #### L IVER #### [address] [address] UA Clarity Clear Normal [facility] Comment on above: Performed By: #### L IVER #### [address] [place] [address] UA Glucose Normal Normal Negative [facility] Comment on above: Performed By: #### L IVER #### [address] [address] UA Leukocyte Esterase Negative Normal Negative [facility] Comment on above: Performed By: #### L IVER #### [address] [address] UA Nitrite Negative Normal Negative [facility] Comment on above: Performed By: #### L IVER #### [address] [address] UA pH 6.5 Normal 4.5 - 7.8 [facility] Comment on above: Performed By: #### L IVER #### [address] [address] UA Protein 10 mg/dL Normal Negative [facility] Comment on above: Performed By: #### L IVER #### [address] [address] UA Source Clean Catch Normal [facility] Comment on above: Performed By: #### L IVER #### [address] [address] UA Spec Grav 1.025 Normal 1.003-1.035 [facility] Comment on above: Performed By: #### L IVER #### [address] [address] UA Urobilinogen Normal Normal 0.2 - 1.0 [facility] Comment on above: Performed By: #### L IVER #### [address] [address] Urobilinogen (U) [Mass/Vol] Negative Normal Negative [facility] Comment on above: Performed By: #### L IVER #### [address] [address] Orthopedic Office/Clinic Not paco 07-25-2021 Orthopedic Office/Clinic Note Chief Complaint Chief Complaint New Rt knee pain Dura:yrs History of Present Illness HISTORY: This 21 year old female presented to office with complaints of Right knee pain over a period of time. PAIN: Location:right knee Onset date: years Character/Quality: Throbbing, aching, sharp stabbing Severity: 8 out of 10 Timing: Constant Aggravating factors: Use Relieving factors: Rest, ice Review of Systems GEN.: Negative for fevers, chills, and sweats. Eyes: Negative for pain and redness ENT: Negative for sore throat, nasal congestion, and ear pain Neck: As per history and physical exam Cardiovascular: Negative for chest pain and palpitations Respiratory: Negative for shortness of breath, cough, and pleuritic chest pain Abdomen/GI: Negative for pain, nausea, and vomiting Back: As per history and physical exam : Negative for dysuria and hematuria Musculoskeletal: As per chief complaint Skin: As per history and physical exam Neuro: As per history and physical exam Allergy/Immunology: Negative for hives rationale allergies Endocrine: Negative for weight loss, polyuria as well as polydipsia Hematologic: Negative for abnormal bruising Physical Exam PHYSICAL EXAM VITALS: As entered CONSTITUTIONAL: Alert, oriented to person place and time, good hygiene and grooming, patient appears well nourished and well developed HEAD: Normocephalic, atraumatic EYES: Equal and reactive to light. Extraocular movements are normal. Pupils equal in size. Sclera and conjunctiva appeared normal. EARS, NOSE, AND THROAT: Ears and nose were normal in appearance. Appearance neck was normal, no neck mass was observed, the thyroid did not appear enlarged the neck was supple. RESPIRATORY: No respiratory distress, normal respiratory rhythm and effort, no accessory muscle use CARDIOVASCULAR: Heart Rate and Rhythm Were Normal, Peripheral edema none, varicosities none GASTROINTESTINAL: Nondistended, normoactive bowel sounds, soft and nontender. SKIN: Normal skin color and pigmentation, normal skin turgor, no rash PSYCHIATRIC: Oriented to person place and time, insight and judgment were intact, mood and affect were normal. NEUROLOGIC: Coordination intact, motor strength, sensation, reflexes as per musculoskeletal exam HEMATOLOGICAL/LYMPHATIC : No lymphadenopathy upper or lower extremities MUSCULOSKELETAL: RIGHT KNEE EXAM: INSPECTION: No swelling, no erythema, no ecchymosis, no rash, Alignment neutral, Effusion mild, Q angle 15 degrees, J sign negative, pes planus present, no scars PALPATION: Medial patellofemoral moderate tender Lateral patellofemoral moderate tender Medial joint line moderate tender Lateral joint line moderate tender Crepitus present ROM: Extension active 0 degrees, Extension passive 0 degrees, Flexion passive 120 degrees STRENGTH: Flexion 5/5, extension 5/5 STABILITY: Medial/valgus negative, pseudo-laxity Lateral/varus negative, pseudo-laxity Tony test +1 Anterior drawer test +1 Posterior drawer test negative Thumb sign negative Patellar mobility 1 quadrants medial, 2 quadrants lateral SPECIAL TESTS: Eleazar medial positive, Eleazar lateral negative GAIT: Normal NEUROVASCULAR: Dorsalis pedis pulse + 2, posterior tibial pulse +1, capillary refill less than 2 seconds, sensation intact dorsum of the foot, sensation intact plantar aspect of the foot to light touch. RADIOGRAPHIC IMAGING: X-RAY: Images: 3 views of right knee Findings: Medial narrowing [] mm, lateral narrowing[7] mm Osteophytes [] medial, [] lateral, [] patella femoral Peaking of intercondylar eminence [] Alignment [mild] [varus] Subchondral cysts [] Osteoarthritis [moderate] Additional Vitals No qualifying data available. Assessment/Plan Derangement of right knee PLAN: Options in treatment including activity modification, medications, braces, physical therapy/occupational therapy, injections, and surgery were reviewed. PATIENT EDUCATION: Discussed rationale behind my recommendations with patient. Patient was encouraged to ask questions and all questions answered to their satisfaction. The importance of compliance, as well as the risks of noncompliance, with the recommended treatment plan was discussed. Patient was counseled on proper diet. The benefits of exercise were reviewed at length with the patient. Discussed rationale and proper use of patient's medications. The patient is aware of the potential adverse effects of anti-inflammatory medication, including: Abdominal pain, bleeding from or perforation of gastrointestinal tract, inflammation of gastric or duodenal lining, possible ulcer formation, and potential adverse effects on liver or kidneys. Discussed risks, benefits, alternatives of surgery at length. COUNSELING: Discussed diagnosis, treatment plan, options and treatment as well as benefits, outcomes, risks, of treatment. Problem List/Past Medical History Ongoing No qualifying data Hi (more content not included)... Normal [facility] Comment on above: Order Comment: eduardo french ED Clinical Summaryon 2021 ED Clinical Summary (Inserted Image. Michelle ble to display) [place] [place] [address] ED Clinical Summary Person Information Name: Debo Swann/New_Mega Age: 21 Years : 2000 Sex: Female PCP: Marital Status: Single Phone: Race: White Ethnicity: Not or Language: Northern Irish Visit Reason: Knee pain-swelling; Extremities pain - swelling Acuity: 4 Enc Type: Emergency Med Service: Emergency Medicine Arrival: 07/19/2021 18:27:19 Discharge: 07/19/2021 19:54:00 LOS: 000 01:27 Checkin: 07/19/2021 18:27:19 Checkout: 07/19/2021 19:54:00 Dispo Type: Home or Self Care Address: [address] [place] [address] [place] [address] Provider Notes: Diagnosis: Derangement of right knee Problems No Problems Documented Smoking Status: Smoking Status 4 or less cigarettes(less than 1/4 pack)/day in last 30 days Functional Status: Sensory Deficits: History of Falls: Mobility Assistance Prior to Admission: ADLs: Current Level of Assistance for Self-Care/Mobility: Cognitive Status: Allergies No Known Medication Allergies Laboratory or Other Results This Visit (last charted value for your 07/19/2021 visit) Diagnostic Radiology 07/19/2021 7:12 PM XR Knee 3 Views Right: XR Knee 3 Views Right Measurements: Height: Weight: 76.8 kg Blood Pressure: /79 mmHg BMI: Procedures No Procedures Documented Immunizations No Immunizations Documented This Visit Final Med List: New Medications [id number], [address] [place], [place] [id number], [phone] ibuprofen (ibuprofen 600 mg oral tablet) 1 Tabs Oral (given by mouth) every 8 hours as needed as needed for pain for 10 Days. Refills: 0. Last Dose: __ [id number], [address] [place] [id number], [phone] ibuprofen (ibuprofen 600 mg oral tablet) 1 Tabs Oral (given by mouth) every 8 hours as needed as needed for pain for 10 Days. Refills: 0. Care Team Members: Attending Physician: Na Osullivan Consulting Physician: Referring Physician: Provider Role Assigned Unassigned Na Osullivan ED MidLevel 07/19/2021 18:29:53 Nayla Gandhi ED Nurse 07/19/2021 18:37:43 Anahi Davey ED Nurse 07/19/2021 19:21:57 Follow up: With: Address: When: Return to ER: Fevers, redness warmth swelling to the knee, worsening pain or numbness, inability to walk; or any other concerning symptoms. With: Address: When: Please follow with orthopedics for reevaluation of your knee pain if it is continuing. Ibuprofen as prescribed to help with pain. Can use ice pack therapy as tolerated as well to help with pain. Tylenol [id number] as directed to help with pain. With: Address: When: Familia Hauser [address] [place] [phone] Business (1) Discharge Orders: Discharge Patient 07/19/21 19:40:00 EST, Discharge to Home, Self Return to Work/School 07/19/21 19:40:00 EST, 07/21/21 7:00:00 EST, 07/19/21 19:40:00 EST Patient Education Information: RICE; KENY[place]TA Wrap; Knee Pain of Uncertain Cause [facility] Poison Help line: . [facility] Hotline: [place] Tobacco Quit Line: [place], [place]) [address]: [phone] [place], [place]) [address]: [phone] [facility] [address] [place], [place]: [phone] [facility] ED Note-Physicianon 07-19-19 ED Note-Physician Chief Complaint i feel like my knee is going bum right knee pain starting this morning History of Present Illness This is a nontoxic-appearing 21-year-old female presenting to the emergency department with anterior right knee pain; this is acute on chronic pain she reports that she has been having issues for the last 3 years she is followed previously with her family physician however reports that nothing has ever been done for the knee pain. She has had no recent injuries or traumas no fevers no erythema significant swelling to the knee; with the acute episode today she reports that when she woke up this morning she was having sharp pain anterior knee and also bilateral sides of the knee, she has not attempted any alleviating measures prior to arrival. She reports that after walking to the emergency department this evening the pain has gotten even worse. Review of Systems CONSTITUTIONAL: NO FEVERS OR CHILLS, NO ATYPICAL FATIGUE NEURO: NO ACUTE HEADACHES OR WEAKNESS HEENT: NO NASAL CONGESTION OR EYE PAIN/DRAINAGE CARDIAC: NO CHEST PAIN OR HEART PALPITATIONS PULMONARY: NO SHORTNESS OF BREATHING OR ACUTE BREATHING DIFFICULTY ABDOMEN: NO NAUSEA/VOMITING OR ABDOMINAL PAIN : NO URINARY FREQUENCY OR DYSURIA MUSCULOSKELETAL: Positive for right knee pain no acute neck or back pain. SKIN: NO SKIN RASHES OR UNUSUAL BRUISING Physical Exam CONSTITUTIONAL: well appearing in no acute distress SKIN: Warm, dry, and intact without rash EYES: bilaterally sclera white and conjunctiva clear HENT: Normocephalic, atraumatic, moist mucus membranes NECK: no obvious swelling, normal range of motion PULMONARY: normal chest rise and fall, no respiratory distress or stridor. Anterior posterior lung sounds are clear. CARDIOVASCULAR: regular rate and rhythm, distal extremities are warm and well perfused bilateral pedal pulses 2+ and equal. NEUROLOGIC: normal speech, moves all extremities MUSCULOSKELETAL: Right knee tenderness anterior medial and lateral no joint erythema or swelling no ecchymosis flexion extension tendon function intact no popliteal swelling or tenderness, the right knee compartment soft skins intact distal PMS positive. Right ankle nontender normal range of motion. Right hip nontender no shortening no rotation. Otherwise bilateral upper lower extremities no swelling, no gross deformities, atraumatic PSYCHIATRIC: normal mood, normal speech Vitals & Measurements T: 36.3 ?C (Oral) HR: 115 (Peripheral) RR: 18 BP: 118/79 SpO2: 97% HT: 165 cm WT: 76.8 kg (Dosing) Additional Vitals No qualifying data available. Procedure No qualifying data available. ASA Documentation Medical Decision Making Patient was given ibuprofen 600 in the department to help with her pain. Right knee x-ray negative for acute osseous abnormality. The patient was updated on all the diagnostic test findings, the right knee was placed in an [place] wrap. She was provided with our on-call orthopedic office information for follow-up due to the ongoing length of the right knee pain. Prescription for ibuprofen 600 was sent to her pharmacy she was also instructed to use Tylenol [id number] as directed. She requested a work note which was provided to her. Reasons to return to the emergency department state on the discharge paperwork. She is discharged ambulatory in no acute distress with stable vital signs. Assessment/Plan Derangement of right knee Knee pain-swelling (Complaint of) Orders: ibuprofen, 1 tabs, Oral, q8hr, PRN, X 10 days, # 30 tabs, 0 Refill(s), 07/29/21 19:41:00 EST, Pharmacy: [id number] [place] Wrap Application Discharge Patient Return to Work/School Refresh vitals and sections below: Problem List/Past Medical History Ongoing No qualifying data Historical No qualifying data Medications Inpatient No active inpatient medications Home ibuprofen 600 mg oral tablet, 600 mg= 1 tabs, Oral, q8hr, PRN Allergies No Known Medication Allergies Social History Alcohol Current, Beer, 1-2 times per month Substance Abuse Denies All Tobacco 4 or less cigarettes(less than 1/4 pack)/day in last 30 days Use:. Cigarettes Diagnostic Results XRay XR Knee 3 Views Right 07/19/21 19:34:20 IMPRESSION: Unremarkable plain film examination without acute fracture or dislocation. Signed By: Remedios Cordoba DO Electronically signed by ___ Na Osullivan 07/19/21 20:00 EST Normal [facility] XR Knee 3 Views Righton 06-28 XR Knee 3 Views Right XR Knee 3 Views Right: HISTORY: Pain in joint, knee Pain in joint, knee COMPARISON: None available. TECHNIQUE: 3 radiographic view(s) obtained. FINDINGS: BONES/JOINT SPACES: There is no acute fracture or dislocation. The joint spaces are well-maintained. SOFT TISSUES: The soft tissues are unremarkable. IMPRESSION: Unremarkable plain film examination without acute fracture or dislocation. Final Dictated by: Remedios Cordoba DO Dictated DT/TM: 07/19/2021 7:33 pm Signed by: Remedios Cordoba DO Signed (Electronic Signature): 07/19/2021 7:34 pm (If Report Is Signed, Electronically Signed in Other Vendor System) Normal [facility] Covid-19 PCR (CVDTB)on SARS-CoV-2 (COVID-19) RNA GENIA+probe Ql (Unsp spec) Not detected Normal NOT DETECTED [facility] Comment on above: Result Comment: This test is not yet approved or cleared by the [place] FDA. When there are no FDA-approved or cleared tests available, and other criteria are met, FDA can make tests available under an emergency access mechanism called an Emergency Use Authorization (EUA). The EUA for this test is supported by the [place] of Health and Human Service's (HHS's) declaration that circumstances exist to justify the emergency use of in vitro diagnostics for the detection and/or diagnosis of the virus that causes COVID-19. This EUA will remain in effect (meaning this test can be used) for the duration of the COVID-19 declaration justifying emergency of IVDs, unless it is terminated or revoked by FDA (after which the test may no longer be used). When diagnostic testing is negative, the possibility of a false negative should be considered in the context of a patient's recent exposures and the presence of clinical signs and symptoms consistent with SARS-CoV-2. Performed By: #### C VDTBH #### [facility] [address] [place] [address] Dr. Bartolo Pierre INFLUENZA A AND B AGon 06-01 INFLUANE SEE BELOW Normal [facility] Comment on above: Result Comment: Nega tive for Flu A protein angiten. Infection due to Flu A cannot be ruled out. Flu A angiten in the sample may be below the detection limit of the test. Performed By: #### I NFLUAB #### [facility] [address] [place] [address] Dr. Bartolo Pierre INFLUBNEG SEE BELOW Normal [facility] Comment on above: Result Comment: Nega tive for Flu B protein antigen. Infection due to Flu B cannot be ruled out. Flu B antigen in the sample may be below the detection limit of the test. Performed By: #### I NFLUAB #### [facility] [address] [place] [address] Dr. Bartolo Pierre INFLUENZA A AG Negative Normal NEGATIVE SEE COMMENT [facility] Comment on above: Performed By: #### I NFLUAB #### [facility] [address] [place] [address] Dr. Bartolo Pierre INFLUENZA B AG Negative Normal NEGATIVE SEE COMMENT [facility] Comment on above: Performed By: #### I NFLUAB #### [facility] [address] [place] [address] Dr. Bartolo Pierre INTERNAL CONTROLS Within Normal Limits Normal Wi thin Normal Limits [facility] Comment on above: Performed By: #### I NFLUAB #### [facility] [address] [place] [address] Dr. Bartolo Pierre XR CHEST 1 Von 06-01-2021 XR CHEST 1 V EXAM: XR CHEST 1 V REASON FOR EXAM: Female, 21 years, COUGH. TECHNIQUE: A single AP view of the chest is performed. COMPARISON: None. FINDINGS: The lungs are expanded and clear. Normal pleura. Normal size heart. Normal mediastinum and jerald. Normal visualized pulmonary arteries. Normal visualized aortic arch and descending thoracic aorta. Normal visualized thoracic spine. Normal visualized ribs, clavicles, and shoulders. There is no demonstrated abnormality of the visualized soft tissue structures of the upper abdomen. IMPRESSION: Normal examination of the chest. Electronically authenticated by: MARCO GOSS Date: 2021-06-01 18:[address] [facility] INFLUENZA by PCRon 0 FLU A by PCR Negative [facility] Comment on above: Performed By: #### F LUPCR #### [address] [address] FLU B by PCR [facility] Comment on above: Result Comment: POSI TIVE VERIPHY Performed at [address] [address] Performed By: #### F LUPCR #### [address] [place] [address] ALCOHOLon 02-19-2019 Ethanol [Mass/Vol] mg/dL Normal [facility] Comment on above: Result Comment: FOR MEDICAL USE ONLY. . REF VALUES <10 Performed By: #### A LC #### [address] [address] BASIC METABOLIC PANELon 01-26 Anion gap [Moles/Vol] 11 mmol/L Normal 10 - 20 [facility] Comment on above: Performed By: #### B MP #### [address] [address] Calcium [Mass/Vol] 9.5 mg/dL Normal 8.6 - 10.3 [facility] Comment on above: Performed By: #### B MP #### [address] [address] Chloride [Moles/Vol] 103 mmol/L Normal 98 - 107 [facility] Comment on above: Performed By: #### B MP #### [address] [address] Creatinine [Mass/Vol] 0.80 mg/dL Normal 0.50 - 1.05 [facility] Comment on above: Performed By: #### B MP #### [address] [address] GFR- AM. >60 Normal >60 [facility] Comment on above: Result Comment: CALC ULATIONS OF ESTIMATED GFR ARE PERFORMED USING THE MDRD STUDY EQUATION FOR THE IDMS-TRACEABLE CREATININE METHODS. CLIN CHEM 2007;53:766-72 Performed By: #### B MP #### [address] [address] GFR-NON AM. >60 Normal >60 [facility] Comment on above: Performed By: #### B MP #### [address] [address] Glucose [Mass/Vol] 68 mg/dL Low 74 - 99 [facility] Comment on above: Performed By: #### B MP #### [address] [address] HCO3 (Bld) [Moles/Vol] 25 mmol/L Normal 21 - 32 [facility] Comment on above: Performed By: #### B MP #### [address] [address] Potassium [Moles/Vol] 3.4 mmol/L Low 3.5 - 5.3 [facility] Comment on above: Performed By: #### B MP #### [address] [address] Sodium [Moles/Vol] 136 mmol/L Normal 136 - 145 [facility] Comment on above: Performed By: #### B MP #### [address] [address] Urea nitrogen [Mass/Vol] 8 mg/dL Normal 6 - 23 [facility] Comment on above: Performed By: #### B MP #### [address] [address] CBCon 02-19-2019 Erythrocyte distribution width (RBC) [Ratio] 12.6 % Normal 11.5 - 14.5 [facility] Comment on above: Performed By: #### C BC #### [address] [address] Hematocrit (Bld) [Volume fraction] 41.3 % Normal 36.0 - 46.0 [facility] Comment on above: Performed By: #### C BC #### [address] [address] Hemoglobin (Bld) [Mass/Vol] 13.2 g/dL Normal 12.0 - 16.0 [facility] Comment on above: Performed By: #### C BC #### [address] [address] MCHC (RBC) [Mass/Vol] 32.0 g/dL Normal 32.0 - 36.0 [facility] Comment on above: Performed By: #### C BC #### [address] [address] MCV (RBC) [Entitic vol] 82 fL Normal 80 - 100 [facility] Comment on above: Performed By: #### C BC #### [facility] [address] [place] [address] Platelets (Bld) [#/Vol] 199 10*3/uL Normal 150 - 450 [facility] Comment on above: Performed By: #### C BC #### [facility] [address] [place] [address] RBC (Bld) [#/Vol] 5.04 x10E12/L Normal 4.00 - 5.20 [facility] Comment on above: Performed By: #### C BC #### [address] [address] WBC (Bld) [#/Vol] 12.1 10*3/uL High 4.4 - 11.3 [facility] Comment on above: Performed By: #### C BC #### [address] [address] [address] C-SPINE WO CONTRASTon CT C-SPINE WO CONTRAST Patient Name: LEN SWANNY STUDY: CT C-SPINE WO CONTRAST; 02/18/2019 11:14 pm INDICATION: fall from horse 3pm / right side abd chest pelvis pain multiple distracting injuries. COMPARISON: None. ACCESSION NUMBER(S): [id number] ORDERING CLINICIAN: ELIO DUKE TECHNIQUE: Axial noncontrast images of the cervical spine with coronal and sagittal reconstructed images. FINDINGS: ALIGNMENT: Normal. VERTEBRAE: No acute fracture. SPINAL CANAL: No critical spinal canal stenosis. PREVERTEBRAL SOFT TISSUES: No prevertebral soft tissue swelling. LUNG APICES: Imaged portion of the lung apices are within normal limits. OTHER FINDINGS: None. IMPRESSION: No acute fracture or traumatic subluxation of the cervical spine. Electronically signed by: BHUPINDER HOLLOWAY MD Normal [facility] CT CHEST ABDOMEN PELVIS W CO NTRASTon 02-19-2019 CT CHEST ABDOMEN PELVIS W CONTRAST Patient Name: LEN SWANNY STUDY: CT CHEST ABDOMEN PELVIS W CONTRAST; 02/18/2019 11:14 pm INDICATION: fall from horse pain right chest and abdominal pain / pain with respirations. COMPARISON: None. ACCESSION NUMBER(S): [id number] ORDERING CLINICIAN: ELIO DUKE TECHNIQUE: Axial CT images of the chest, abdomen and pelvis with coronal and sagittal reconstructed images obtained after intravenous administration of 100 mL of Isovue 370. FINDINGS: CHEST: VESSELS: Aorta is normal caliber. Main pulmonary artery is normal caliber. HEART: Normal size. No pericardial effusion. MEDIASTINUM AND JERALD: No pathologically enlarged thoracic lymph nodes. Triangular soft tissue in the anterior mediastinum likely relates to residual thymic tissue. LUNG, PLEURA, LARGE AIRWAYS: No consolidation, effusion or pneumothorax. No discrete nodule or mass is seen. The central airways are patent. CHEST WALL AND LOWER NECK: Within normal limits. BONES: No acute osseous abnormality. ABDOMEN: LIVER: Within normal limits. BILE DUCTS: Normal caliber. GALLBLADDER: No calcified gallstones. No wall thickening. PANCREAS: Within normal limits. SPLEEN: Within normal limits.Accesory splenule noted. ADRENALS: Within normal limits. KIDNEYS: Symmetric renal enhancement. No hydronephrosis or perinephric fluid collection. URETERS: No hydroureter. VESSELS: The aorta and IVC are within normal limits. RETROPERITONEUM: Within normal limits. PELVIS: REPRODUCTIVE ORGANS: Uterus is present. Follicular cyst in the left ovary measures 3.5 x 2.0 cm. There is small amount of free fluid in the pelvis which measures simple attenuation, likely physiologic. BLADDER: Within normal limits. BOWEL: Stomach is under distended with apparent wall thickening. Visualized loops of bowel are without evidence for obstruction. There is a radiopaque density in the cecum corresponding to known history of recently ingested tongue ring. Normal appendix. PERITONEUM: Trace free fluid in the pelvis severe to be physiologic. No free air. ABDOMINAL WALL: Small umbilical hernia contains fat. There is mild stranding of the subcutaneous soft tissues right lateral abdomen pelvis likely sequela of recent injury. BONES: No acute osseous abnormality. IMPRESSION: No acute abnormality of the chest, abdomen and pelvis. Mild stranding of the subcutaneous soft tissues right lateral abdomen and pelvis likely sequela of recent trauma and soft tissue injury. There is a radiopaque density in the cecum consistent with known history of recently ingested tongue ring. Functional left ovarian cyst measuring 3.5 x 4.0 cm. Small amount of free fluid in the pelvis is favored to be physiologic. Electronically signed by: BHUPINDER HOLLOWAY MD Normal [facility] CT LOWER EXT WO CONTRASTon 0 02-19-2019 CT LOWER EXT WO CONTRAST Patient Name: DEBO SWANN STUDY: CT LOWER EXT WO CONTRAST; 02/18/2019 11:14 pm INDICATION: fall from horse 3pm / right side abd chest pelvis pain multiple distracting injuries / right hip unable to SLR, unable to bear weight r/o pelvis fracture, r/o SI joint diastasis, r/o right hip fx. COMPARISON: ACCESSION NUMBER(S): [id number] ORDERING CLINICIAN: ELIO DUKE TECHNIQUE: Noncontrast spiral CT scanning of the pelvis was performed in the axial plane. Coronal and sagittal reconstructions were obtained from the original data set. 3-D reconstructions were also obtained. FINDINGS: OSSEOUS STRUCTURES: No acute fracture or dislocation. Hip joint spaces are preserved. Visualized SI joints, lower lumbar spine and symphysis pubis are within normal limits. SOFT TISSUES: There is limited assessment of muscles, tendons, ligaments, and cartilaginous structures on noncontrast nonarthrographic CT. Mild soft tissue swelling along the right lateral pelvis just superior to the iliac crest. Trace fluid and stranding lateral to the right gluteal musculature and greater trochanter. OTHER: Please refer to separate report of chest, abdomen and pelvis CT for detail. IMPRESSION: No acute fracture or dislocation. Mild stranding and fluid lateral to the right greater trochanter extending to the gluteal musculature likely sequela of soft tissue injury. Please refer to separate report of chest, abdomen and pelvis CT for detail. Electronically signed by: BHUPINDER HOLLOWAY MD Normal [facility] CT PELVIS W/O CONTRAST Patient Name: DEBO SWANN STUDY: CT LOWER EXT WO CONTRAST; 02/18/2019 11:14 pm INDICATION: fall from horse 3pm / right side abd chest pelvis pain multiple distracting injuries / right hip unable to SLR, unable to bear weight r/o pelvis fracture, r/o SI joint diastasis, r/o right hip fx. COMPARISON: ACCESSION NUMBER(S): [id number] ORDERING CLINICIAN: ELIO DUKE TECHNIQUE: Noncontrast spiral CT scanning of the pelvis was performed in the axial plane. Coronal and sagittal reconstructions were obtained from the original data set. 3-D reconstructions were also obtained. FINDINGS: OSSEOUS STRUCTURES: No acute fracture or dislocation. Hip joint spaces are preserved. Visualized SI joints, lower lumbar spine and symphysis pubis are within normal limits. SOFT TISSUES: There is limited assessment of muscles, tendons, ligaments, and cartilaginous structures on noncontrast nonarthrographic CT. Mild soft tissue swelling along the right lateral pelvis just superior to the iliac crest. Trace fluid and stranding lateral to the right gluteal musculature and greater trochanter. OTHER: Please refer to separate report of chest, abdomen and pelvis CT for detail. IMPRESSION: No acute fracture or dislocation. Mild stranding and fluid lateral to the right greater trochanter extending to the gluteal musculature likely sequela of soft tissue injury. Please refer to separate report of chest, abdomen and pelvis CT for detail. Electronically signed by: BHUPINDER HOLLOWAY MD Normal [facility] DRUG SCREEN,URINEon 02-20-20 19 AMPHETAMINE SCREEN,U Negative Normal NEGATIVE [facility] Comment on above: Result Comment: CUTO FF LEVEL: 500 NG/ML Cross-reactivity has been reported with high concentrations of the following drugs: buproprion, chloroquine, chlorpromazine, ephedrine, mephentermine, fenfluramine, phentermine, phenylpropanolamine, pseudoephedrine, and propranolol. Performed By: #### D RUG3 #### [address] [address] BARBITURATES SCREEN,U Negative Normal NEGATIVE [facility] Comment on above: Result Comment: CUTO FF LEVEL: 200 NG/ML Performed By: #### D RUG3 #### [address] [address] BENZODIAZEPINES SCREEN,U Negative Normal NEGATIVE [facility] Comment on above: Result Comment: CUTO FF LEVEL: 200 NG/ML Performed By: #### D RUG3 #### [address] [address] CANNABINOIDS SCREEN,U Negative Normal NEGATIVE [facility] Comment on above: Result Comment: CUTO FF LEVEL: 50 NG/ML Performed By: #### D RUG3 #### [address] [address] COCAINE METABOLITE SCREEN,U Negative Normal NEGATIVE [facility] Comment on above: Result Comment: CUTO FF LEVEL: 150 NG/ML Performed By: #### D RUG3 #### [address] [address] DRUG SCREEN COMMENT SEE BELOW Normal [facility] Comment on above: Result Comment: Drug screen results are presumptive and should not be used to assess compliance with prescribed medication. Contact the performing [facility] laboratory to add-on definitive confirmatory testing if clinically indicated. . Toxicology screening results are reported qualitatively. The concentration must be greater than or equal to the cutoff to be reported as positive. The concentration at which the screening test can detect an individual drug or metabolite varies. The absence of expected drug(s) and/or drug metabolite(s) may indicate non-compliance, inappropriate timing of specimen collection relative to drug administration, poor drug absorption, diluted/adulterated urine, or limitations of testing. For medical purposes only; not valid for forensic use. . Interpretive questions should be directed to the laboratory medical directors. Performed By: #### D RUG3 #### [address] [address] METHADONE SCREEN,U Negative Normal NEGATIVE [facility] Comment on above: Result Comment: CUTO FF LEVEL: 150 NG/ML The metabolite N-gcrcv-mjjuivzhoyzqdo (LAAM) is not detected by this method in concentrations that would be found in the urine of patients on LAAM therapy. Performed By: #### D RUG3 #### [address] [address] OPIATES SCREEN,U Negative Normal NEGATIVE [facility] Comment on above: Result Comment: CUTO FF LEVEL: 300 NG/ML The opiate screen does not detect fentanyl, meperidine, or tramadol. Oxycodone is not consistently detected (refer to Oxycodone Screen, Urine result). Performed By: #### D RUG3 #### [address] [address] PCP SCREEN,U Negative Normal NEGATIVE [facility] Comment on above: Result Comment: CUTO FF LEVEL: 25 NG/ML Cross-reactivity has been reported with dextromethorphan. Performed By: #### D RUG3 #### [facility] [address] [place] [address] HCG,URINEon 02-19-2019 Beta HCG ( test) Ql (U) Negative Normal Negative [facility] Comment on above: Performed By: #### H CGU #### [facility] [address] [place] [address] LACTATEon 02-19-2019 Lactate [Moles/Vol] 2.1 mmol/L High 0.4 - 2.0 [facility] Comment on above: Result Comment: Ruby puncture immediately after or during the administration of Metamizole may lead to falsely low results. Testing should be performed immediately prior to Metamizole dosing. Performed By: #### L ACT #### [address] [address] Provider Note - ED v2on 01-26 Provider Note - ED v2 Provider Note - ED v2: Chart Review: ED NOTES ED NOTES: pcp: CC: Fall from horse / Right sided injury HPI: The patient presents after a fall from a horse at 3 PM with severe pain in the right hip, the right pelvis, the right ribs, the right upper quadrant and lower quadrant of the abdomen, and increased pain with deep respiration. The patient tells me she cannot stand or bear weight on the right hip. She also has pelvic pain as well. She is brought in by private conveyance. She denies numbness, tingling, or paresthesias. She denies nausea or vomiting. Her last meal was about 4 PM. Her last liquids were right before she came to the emergency department. The pain is aching and throbbing and occasionally lancing. It is worse with movement or weightbearing or palpation. It is also worse with deep respiration. Nothing makes it better. PMH/PSH/FamHx reviewed in summary screen on EMR Additional pertinent PMH/PSH/Fam Hx: Soc Hx: Nonsmoker. Denies alcohol excess. Denies drug use. ROS: Gen.: No weight loss, fever, chills Eyes: No change in vision or eye pain ENT: No sore throat or neck swelling Cardiac: Endorses right sided chest pain, denies palpitations Pulmonary: No shortness of breath, cough, hemoptysis. Heme/lymph: No swollen glands, easy bleeding GI: Endorses right sided abdominal pain, change in stools, nausea : no burning with urination or increased frequency Musculoskeletal: Endorses severe pain in right hip and right pelvis. Skin: No rashes. Psych: No depression, anxiety Physical Exam: Appearance: Alert, cooperative, in moderate acute distress. Well nourished well hydrated. Skin: No rash. No diaphoresis Eyes: PERRL, EOMs intact without nystagmus, Conjunctiva pink with no redness or exudates. Cornea & anterior chamber are clear, Eyelids without lesions. No scleral icterus. ENT: Hearing grossly intact. Mucus membranes moist. Pharynx clear, uvula midline. Neck: Supple, without meningismus. No lymphadenopathy. No real significant tenderness to palpation or step-off to the cervical spinous processes. Cervical C5 through T1 are intact. Pulmonary: Clear bilaterally with good chest wall excursion. No rales, rhonchi or wheezing. No accessory muscle use or stridor. There is tenderness to palpation to the right lower anterolateral ribs. Cardiac: Normal S1, S2 without murmur, rub, gallop. 2+ radial pulses Abdomen: Soft, tenderness to palpation to the right upper quadrant with guarding but no rebound. Normoactive bowel sounds. Genitourinary: No CVA tenderness. Musculoskeletal: Patient has pain with pelvic rock testing but no instability. There is pain over the right SI joint. Pain is noted over the right iliac crest. Pain is noted over the right greater trochanter of the femur at the hip proximally. There is pain with internal and external rotation to right hip. The patient cannot do a straight leg raise off the bed for more than 1-2 seconds, due to pain. Neurovascular status is intact distally. Neurological: moves all 4 extremities no focal deficits, oriented x 3. Psychiatric: Appropriate mood and affect. Disclaimer: Portions of this note were dictated by speech recognition. An attempt at proof reading was made to minimize errors. Minor errors in dike supervisor may be present. Please call if questions. HISTORY OF PRESENTING ILLNESS DEBO is a 18 year old Female and was seen by me at 18-Feb-2019 21:40 for a chief complaint of hip pain/injury (PT PRESENTS WITH RIGHT HIP AND RIB PAIN (TRAUMATIC). PT FELL OFF A HORSE ONTO HARD SURFACE)(1). Triage Information: Most recent Vital Sign Value Date Temp (F): 98 02-18-2019 21:40 Temp (C): 36.7 02-18-2019 21:40 Heart Rate (beats/min): 85 02-18-2019 21:40 Respirations (breaths/min): 20 02-18-2019 21:40 SpO2 (%): 99 02-18-2019 21:40 BP Systolic (mm Hg): 116 02-18-2019 21:40 BP Diastolic (mm Hg): 75 02-18-2019 21:40 PAST MEDICAL HISTORY ATTESTATION: I have reviewed and confirmed nurse's/medic's notes for patient's medications, allergies, medical history, and surgical history ALLERGIES/INTOLERANCES: No Known Allergies HEALTH HISTORY: No documented data. OUTPATIENT MEDICATIONS: Home Medications Review Status for Reconciliation: N/A Med Status: N/A No documented data. SIGNIFICANT EVENTS: No documented data. SURG NURSE: Is : no(1) Is : no(1) MEDICAL DECISION MAKING/ED COURSE MDM/ED COURSE: 0125 hrs Discussed all findings with the patient who is feeling moderately improved. Discussed plan of care to include discharge on [place] and crutches with close PCP follow-up. Suitable for outpatient management and disposition home with close PCP follow-up. Discussed results and the discharge plan with the patient and/or family/friend. I explained the importance of follow-up with their physician. Explained reasons to return to the emergency department. All questions and concerns were answered and addressed. The patient and/or family member/friend expressed understanding. CLINICAL IMPRESSION Diagnosis/Annotation: ED Dx Name:Greater trochanteric bursitis Code:M70.60 Name:Abdominal contusion Code:S30.1XXA Name:Contusion of right chest wall Code:S20.211A Dispostion: discharged Type: home ATTESTATION CRITICAL CARE TIME Is this a critically ill patient: no Electronic Signatures: Elio Duke) (Signed 19-Feb-2019 01:30) Authored: Provider Note - ED v2 Last Updated: 19-Feb-2019 01:30 by Elio Duke) References: 1. Data Referenced From Triage - ED 18-Feb-2019 21:40 Normal [facility] Risk Screen - Adult Emergenc yon 02-18-2019 Risk Screen - Adult Emergency Preferred Language: Preferred Language: Preferred Language for Discussing Health Care (patient/designee)Génesis carpio Advanced Directives: Advance Directive/DNRno Advance Directive Information Givenpatient/family declined Family Violence Adult: Abuse Screen: Are you or have you been threatened or abused physically, emotionally, or sexually by anyoneno Learning Assessment (Patient): Learning Assessment (Patient): Patient is Able to be Assessed for Learningyes Factors Influencing Readiness to Learninterest in learning Factors that Impact Ability to Learnnone Devices/Methods Used to Communicatenone Learning Preferencesaudio Cultural Considerationsnone Developmental Considerationsnone Methodist Considerationsnone Learning Assessment (Other Learner): Learning Assessment (Other Learner): Other learner availableno Pressure Injury/TB/Substance: Pressure Injury: Pressure Injury Present on Admissionno Do you have a coughno Substance Use Current or Former Historynever: Alcohol, Street Drugs YES: Cigarette/Tobacco, e-Cigarette/Vaping Smoking Statuscurrent every day smoker Tobaccovaping Admission Risk Screen: Significant IndicatorsComplete CAGE: CAGE: Is this an injured patient at a Tra[place] Center [place]/[place]/[facility]/[place]): no Electronic Signatures: Leslie Borden (DAR) (Signed 18-Feb-2019 21:57) Authored: Preferred Language, Advanced Directives, Family Violence Adult, Learning Assessment (Patient), Learning Assessment (Other Learner), Pressure Injury/TB/Substance, CAGE Last Updated: 18-Feb-2019 21:57 by Leslie Borden (DAR) [facility] Triage - EDon 02-18-2019 Triage - ED Quick Triage: Are You no Have You Given In The Last 6 Weeksno Are You Currently Breastfeedingno Chart Review: CHIEF COMPLAINT DEBO SWANN is a Female patient with a chief complaint of hip pain/injury (PT PRESENTS WITH RIGHT HIP AND RIB PAIN (TRAUMATIC). PT FELL OFF A HORSE ONTO HARD SURFACE). Triage Date/Time: 18-Feb-2019 21:40 Pain Rating (0-10): 10 = Severe Pain location: RIGHT HIP Vital Signs: Temperature: 98.0F ( 36.7C) taken skin probe Blood Pressure: 116/75 Mean: Heart Rate: 85 Respiratory Rate: 20 Pulse Oximetry: 99% on room air, no respiratory support. Height: 5 feet 7.00 inches. 170.1 CM Weight: 148.0 pounds. Calculated 67.1 kg. (stated) Calculated BMI (kg/m2): 23.190 Calculated BSA (m2) 1.78 Theodore Coma Scale: Best Eye Response: (E4) spontaneous Best Motor Response: (M6) obeys commands Best Verbal Response: (V5) oriented Theodore Score: 15 Cough lasting greater than 3 weeks: no Patient immunocompromised related to: N/A Travel outside of [facility]: no Allergies: no Last menstrual period: 14-Jan-2019 Patient has homicidal thoughts: no LUCILA: 4 Symptom Notes: . Symptoms Are POSITIVE For: difficulty bending, difficulty walking, pain (describe) and decreased ROM. Symptoms Are Negative For: abrasion, bleeding, bruising, deformity, numbness and tingling. Risk Screens Suicide Risk Screen In the Past Month: Have you wished you were or wished you could go to sleep and not wake up no In the Past Month: Have you had any actual thoughts of killing yourself no In Your Lifetime: Have you ever done anything, started to do anything, or prepared to do anything to end your life no Victoria Fall Scale Screening Has the patient fallen before (or is the patient in the ED as a result of a fall) has not had a fall Does the patient have an impaired gait does not have impaired gait Is the patient cognitively impaired not cognitively impaired PAIN Pain Scale Used: ALHAJI Pain Assessment: sharp Pain Rating (0-10): 10 = Severe ARRIVAL INFORMATION Mode of Arrival: private vehicle Arrival From: home Accompanied By: self Language: Spoken Language Preferred: Northern Irish Reading Language Preferred: [employer] Rep 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 The airway is open and patent. Breathing spontaneous and unlabored with clear breath sounds bilaterally. Circulation is normal with good peripheral pulses. Skin is warm and dry and color is normal for race. PAST MEDICAL HISTORY Immunization History: Last Known Tetanus Immunization: Unknown TRAVEL HISTORY Travel Exposure History: NO travel to International locations in the past 30 days Past Medical History: Past Medical History Reviewedyes Electronic Signatures: Behzad Swann (EMT-P) (Signed 18-Feb-2019 21:45) Authored: Triage Leslie Borden (CN) (Signed 18-Feb-2019 21:56) Authored: Triage, Past Medical History Last Updated: 18-Feb-2019 21:56 by Leslie Borden) [facility] Vital Signs Date Time Vital Sign Value Performing Clinician Facility 01-03-2024 13:44-0400 Body height 165.1 cm [facility] 01-03-2024 13:44-0400 Body mass index (BMI) [Ratio] 23.5 kg/m2 [facility] 01-03-2024 13:44-0400 Body temperature 97.8 [degF] [facility] 01-03-2024 13:44-0400 Body weight 64.18 kg [facility] 01-03-2024 13:44-0400 Diastolic blood pressure 74 mm[Hg] [facility] 01-03-2024 13:44-0400 Heart rate 77 /min [facility] 01-03-2024 13:44-0400 Respiratory rate 16 /min [facility] 01-03-2024 13:44-0400 SaO2% (BldA) [Mass fraction] 98 % [facility] 01-03-2024 13:44-0400 Systolic blood pressure 121 mm[Hg] [facility] 05-04-2021 17:00-0500 Body height 170.18 cm Zhane Ginty Other [facility] [employer] Other 05-04-2021 17:00-0500 Body mass index (BMI) [Ratio] 23.49 kg/m2 Zhane Ginty Other [facility] [employer] Other 05-04-2021 17:00-0500 Body temperature 99 [degF] Zhane Ginty Other [employer] Other 05-04-2021 17:00-0500 Body weight 68.04 kg Zhane Ginty Other [employer] Other 05-04-2021 17:00-0500 Respiratory rate 18 /min Zhane Ginty Other [employer] Other 05-04-2021 17:00-0500 SaO2% (BldA) [Mass fraction] 99 % Zhane Amberjohnathanlee Other [employer] Other Encounters Encounter Date Encounter Type Care Provider Facility Start: 01-03-2024 End: 01-03-2024 ambulatory [facility] Work Phone: Start: 01-03-2024 End: 01-03-2024 Patient encounter procedure [facility] Work Phone: Start: 12-11-2023 End: 12-11-2023 Emergency department patient visit NO PCP NO PCP [facility] Start: 12-03-2023 End: 12-04-2023 Emergency department patient visit RICKY DE GUZMAN [facility] Start: 10-16-2023 End: 10-16-2023 Emergency department patient visit NO PCP NO PCP [facility] Start: 08-02-2023 End: 08-03-2023 Emergency department patient visit KELLEY GALVAN [facility] Start: 07-05-2023 End: 07-06-2023 Emergency department patient visit DAVID ZARATE [facility] Start: 03-22-2022 End: 03-22-2022 Emergency department patient visit Coral Breen Alden Facility:[facility] Start: 03-15-2022 End: 03-15-2022 Emergency department patient visit Coral Breen Kristine Facility:[facility] Start: 2022 End: 2022 Emergency department patient visit MD Damien Flores Facility:[facility] Start: 03-05-2022 End: 03-05-2022 Emergency department patient visit Luis Antonio Alexandre Facility:[facility] Start: 02-27-2022 End: 02-27-2022 Emergency department patient visit Deana Dotson Facility:[facility] Start: 12-28-2021 End: 12-28-[address] ROXANE VALLADARES Facility:[facility] Start: 09-13-2021 End: 09-14-2021 Emergency department patient visit MD Yifan Garcia Facility:[facility] Start: 08-31-2021 End: 09-01-2021 Emergency department patient visit Na Romo [facility]-HEMODIALYSIS PATIENT CARE SPECIALIST Facility:[facility] Start: 07-25-2021 End: 07-26-2021 ambulatory Marino Carmona Facility:[facility] Start: 07-19-2021 End: 07-19-2021 Emergency department patient visit Na Romo [employer] MASTER SPECIALIST-HEMODIALYSIS PATIENT CARE SPECIALIST Facility:[facility] Start: 06-01-2021 End: 06-01-2021 ambulatory MAYNOR ELKINS Facility:[facility] Start: 05-16-2021 End: 05-16-[address] RANJAN BUSH Facility:[facility] Start: 05-04-2021 End: 05-04-2021 ambulatory Zahne Graves Other [facility] Other Start: 05-04-2021 Office outpatient visit 15 minutes Zhane Graves [facility] Payers Date Payer Category Payer Unknown [id number] 2.16.84 [id number] 1999 Unknown [id number] 2.16.84 [id number] 1999 Unknown [id number] 2.16.84 [id number] 1999 Unknown [id number] 2.16 [id number] 1999 Unknown [id number] 2.16 [id number] 1999 Unknown [id number] 2.16 [id number] 1999 Unknown [id number] 2.16 [id number] 1999 Unknown [id number] 2.16. [id number] 1999 Unknown [id number] 2.16. [id number] 1999 Unknown [id number] 2.16. [id number] 1999 Unknown [id number] 2.16. [id number] 1999 Unknown [id number] 2.16. [id number] 1959 Self-pay Unknown [id number] Social History Date Type Detail Facility Unknown if ever smoked [facility] [employer] Other Sex Assigned At Sex Assigned At Bir th [employer] Other Start: 01-03-2024 Tobacco smoking status [facility] Smoker (finding) [facility] Start: 1999 Sex Assigned At Female F [facility] Clinical Note 03-22-2022 Note Date & Type Note Facility 03-22-2022 Note Procedure: AP, obliq ue, and lateral views of the right foot. Clinical information: Injury, bruising and pain Comparison: None. Findings: Bones: No acute fracture, dislocation, or aggressive abnormality. Joints: Intact spaces. Soft tissues: Unremarkable. IMPRESSION: Normal right foot radiographs. Final Dictated by: Franky Costa MD Dictated DT/TM: 03/22/2022 12:38 pm Signed by: Franky Costa MD Signed (Electronic Signature): 03/22/2022 12:38 pm (If Report Is Signed, Electronically Signed in Other Vendor System) [facility] Clinical Note 03-15-2022 Note Date & Type Note Facility 03-15-2022 Note Procedure: Acute abd omen series, including supine and upright PA views of the abdomen and PA view of the chest. Clinical Information: Nausea and diarrhea Comparison: Chest x-ray only 2022 Findings: Bowel: Nonobstructive gas pattern. Pathologic calcifications: None. Pneumoperitoneum: None. Lungs/pleura: Grossly clear. No pneumothorax or frontal view evidence for pleural effusion. Heart/mediastinum: Unremarkable silhouette. Bones/soft tissues: No gross acute abnormality. IMPRESSION: Normal acute abdominal series. Final Dictated by: Franky Costa MD Dictated DT/TM: 03/15/2022 1:04 pm Signed by: Franky Costa MD Signed (Electronic Signature): 03/15/2022 1:04 pm (If Report Is Signed, Electronically Signed in Other Vendor System) [facility] Clinical Note 03-05-2022 Note Date & Type Note Facility 03-05-2022 Note Procedure: CT of the abdomen and pelvis with contrast. Contrast: 100 mL Omnipaque 300 intravenously. No oral contrast Phase of contrast-enhancement: Portal venous. Reconstructed images: 5 mm axial, 3 mm coronal, and 3 mm sagittal. Clinical information: Abdominal pain Comparison: 09/13/2021 Findings: Lower thorax: Negative. Stomach and duodenum: Negative. Liver: Decreased density. No focal lesion. Measures 19 cm in height versus 18 cm 6 months ago. Gallbladder: Partially contracted. Somewhat heterogenous enhancement of the gallbladder wall without significant pericardial cholecystic inflammation. Heterogenous gallbladder appearance that may indicate noncalcified stones. Biliary tree: No dilatation. Pancreas: Normal. Spleen: Normal. Adrenal glands: Normal. Kidneys/ureters: Normal. Symmetric renal enhancement. Bladder: No radiopaque stones. Reproductive organs: Moderate bilateral follicles, possible 15 mm right ovarian cysts. Sub-10 mm localized free fluid at right adnexa. Bowel: Normal caliber small bowel negative. Negative appendix. No acute colonic pathology. No diverticula. Negative rectum. Peritoneum/retroperitoneum: No ascites, pneumoperitoneum, or pathologic lymph node enlargement. Aortoiliac arteries: Unremarkable. Bones: No acute fracture or destructive abnormality. Abdominal wall: Unremarkable. IMPRESSION: 1. Right ovarian follicles more than left. Small amount of right adnexal free fluid. 2. Consider potential of subtle cholecystitis. May be noncalcified stones. Consider follow-up ultrasound evaluation. 3. Fatty liver. Mildly enlarged. No focal lesion. Final Dictated by: Franky Costa MD Dictated DT/TM: 03.05.2022 10:36 am Signed by: Igor VILLALBA, Franky Engle Signed (Electronic Signature): 03.05.2022 10:47 am (If Report Is Signed, Electronically Signed in Other Vendor System) [facility] Clinical Note 05-16-2021 Note Date & Type Note Facility 05-16-2021 Note PROCEDURE: XR SACRUM _COCCYX COMPARISON: None. HISTORY: Acute pain due to injury FINDINGS: SACRUM: No fracture, disruption of the sacral ala line, or cortical irregularity. COCCYX: Suspect nondisplaced fractures of the proximal and distal segments of the coccyx. SOFT TISSUES: No widening of the sacroiliac joints. No radiopaque foreign body. OTHER: IMPRESSION: 1. Nondisplaced coccyx fractures, likely acute. Electronically authenticated by: LORENA CARREON Date: 2021-05-16 15:48 [facility] Evaluation note 05-04-2021 Note Date & Type Note Facility 05-04-2021 Evaluation note Encounter Date Diagnosis Assessment Notes Apr, Contact with and (suspected) exposure to other viral communicable diseases (ICD-10 - Z20.828) Apr, COVID-19 (ICD-10 - U07.1) Rapid COVID test performed in office today. Advised patient that test was positive. Instructed patient to isolate per CDC guidelines for 10 days from symptom onset. May return to work/activities outside home after isolation period as long as symptoms are improving and has been afebrile for 24 hours without use of antipyretic. Advised patient that health dept. will be in contact as results are reported to them. Advised patient that treatment of COVID is with viral supportive care OTC cold medications as directed, Tylenol/Motrin as needed for body aches/fever. Increase fluids and rest. Encouraged use of cool mist humidifier. May use albuterol inhaler as needed. Follow-up with PCP to advise of positive result and further management. Immediate eval for SOB, difficulty, chest pain, fevers that do not break with antipyretic or any other concerning symptoms as reviewed on patient education handout. Patient verbalizes understanding and is agreeable to treatment plan. Patient left in stable condition Apr, Other Additional time spent conducting pre-visit phone call, screening for symptoms, instructions on social distancing, application and removal of PPE, and cleaning of examination room, equipment and supplies was preformed. Patient education given for testing methodology and results. Patient care instructions given in writting by [facility] Care At Home document [facility] [employer] Other Evaluation note Note Date & Type Note Facility Evaluation note No assessment information availa [facility] Work Phone: History general Narrative - Reported Note Date & Type Note Facility History general Narrative - Reported Type Medical History hx abdominal pain [facility] [employer] Other Summary Purpose Family History No Family History Records FoundNo Family History Records FoundNo Family History Records FoundNo Family History Records FoundNo Family History Records Found Advance Directives Advance Directive Response Recorded Date/ Time Advance Directives No January 02, 1:27pm Chief Complaint and Reason for Visit Chief Complaint Left ankle pain with fall Additional Source Comments INFORMATION SOURCE (unrecogn ized section and content) DATE CREATED AUTHOR 07/31/2019 [facility] DATE CREATED AUTHOR AUTHOR'S ORGANIZ ATION [facility] DATE CREATED AUTHOR AUTHOR'S ORGANIZ ATION 02/28/2022 [place] DATE CREATED AUTHOR AUTHOR'S ORGANIZ ATION 03/24/2022 [facility] DATE CREATED AUTHOR AUTHOR'S ORGANIZ ATION 12/15/2023 [facility] REASON FOR VISIT (unrecogniz ed section and content) #31 BLACK MERCURY, COUGH, CO NGESTION, COVID EXPSOURE Care Teams (unrecognized sec tion and content) Team Status: Active Member Role Status Dates PHYSICIAN NO FAMILY Primary Care Provider Active Team Status: Inactive Member Role Status Dates PHYSICIAN NO FAMILY Primary Care Provider Active Start: January 03, 2024 End: January 03, 2024 Bobbi Gr APRN Attending Provider Active Start: January 03, 2024 End: January 03, 2024 Goals (unrecognized section and content) Goals may be documented in a n alternate section FOR RECORDS PERTAINING TO PATIENTS WHO ARE OR HAVE BEEN ENROLLED IN A CHEMICAL DEPENDENCY/SUBSTANCEABUSE PROGRAM, SOME INFORMATION MAY BE OMITTED. This clinical summary was aggregated from multiple sources. Caution should be exercised in using it in the provision of clinical care. This summary normalizes information from multiple sources, and as a consequence, information in this document may materially change the coding, format and clinical context of patient data. In addition, data may be omitted in some cases. CLINICAL DECISIONS SHOULD BE BASED ON THE PRIMARY CLINICAL RECORDS. [facility]. provides no warranty or guarantee of the accuracy or completeness of information in this document.
--- NOTE | 2024-02-07 21:53 | XR_ITS ---
The [address] [address] Patient Name: HIREN SWANN MRN: [id number] date: 2000 Sex: F Assigned Patient Location: ER Current Patient Location: ED.MAIN Accession/Order Number: [id number] Exam Date: 02/07/2024 21:57 Report Date: 02/07/2024 22:14 At the request of: MAYNOR ELKINS Procedure: XR hand RT min 3V Exam: Radiographs: XR hand RT min 3V Reason for exam: closed in car door Comparison: None XR/XR hand RT min 3V IMPRESSION: Unremarkable right hand radiographs. Electronically authenticated by: DAVID BRITO Date: 02/07/2024 22:14
--- NOTE | 2024-02-07 21:55 | ED_ITS ---
HPI HPI - Extremity Injury (Upper) General Chief Complaint: Extremity Injury, Upper Stated Complaint: UPPER EXTREMITY INJURY Time Seen by Provider: 02/07/24 21:50 Source: patient Mode of arrival: walk-in Limitations: no limitations History of Present Illness HPI narrative: 23-year-old female presents for pain of the right hand. It was closed in a car door yesterday and her main complaint is at the thumb but across all the other 4 fingers as well. She is right-handed and the pain is throbbing and continuous. Related Data Allergies Allergy/AdvReac Type Severity Reaction Status Date / Time No Known Drug Allergies Allergy Verified 02/07/24 21:52 Opioid HPI Opioid Management Most Recent Pain and Opioid Data: Last Pain Scale 5 02/07/24 21:53 Review of Systems ROS Narrative A ten point review of systems is negative except as noted above. PFSH PFS Social History Smoking status: Current every day smoker Little interest or pleasure in doing things: not at all Feeling down, depressed, or hopeless: not at all Exam Narrative Exam Narrative: Nurses note and vital signs reviewed and patient is not hypoxic. General: The patient appears well and in no apparent distress. Patient is resting comfortably on cart. Skin: Warm, dry, no pallor noted. There is no rash noted. Head: Normocephalic, atraumatic Eye: Normal conjunctiva, no drainage Ears, Nose, Mouth, and Throat: oral mucosa is moist. Nares patent. Cardiovascular: Regular Rate and Rhythm Respiratory: Patient is in no distress, no accessory muscle use GI: Soft and nontender Musculoskeletal: The right hand is examined. There is no laceration or tenderness of the dorsum of her hand. She appears to have a very small subungual hematoma at the proximal portion of the thumbnail. Fingers have full range of motion Neurological: Awake and alert Psychiatric: Cooperative Constitutional Vital Signs, click to edit/add: Last Vital Signs Temp 98.2 F 02/07/24 21:48 Pulse 89 02/07/24 21:48 Resp 18 02/07/24 21:48 BP 112/67 02/07/24 21:48 Pulse Ox 100 02/07/24 21:48 O2 Del Method Room Air 02/07/24 21:48 Course Vital Signs Vital signs: Vital Signs Temperature 98.2 F 02/07/24 21:48 Pulse Rate 89 02/07/24 21:48 Respiratory Rate 18 02/07/24 21:48 Blood Pressure 112/67 02/07/24 21:48 Pulse Oximetry 100 02/07/24 21:48 Oxygen Delivery Method Room Air 02/07/24 21:48 Temperature 98.2 F 02/07/24 21:48 Pulse Rate 89 02/07/24 21:48 Respiratory Rate 18 02/07/24 21:48 Blood Pressure 112/67 02/07/24 21:48 Pulse Oximetry 100 02/07/24 21:48 Oxygen Delivery Method Room Air 02/07/24 21:48 MDM - Extremity Injury (Upper) MDM Narrative Medical decision making narrative: X-rays per radiologist showed no acute findings. She was recommended ice rest and ibuprofen. Treatment diagnosis and follow-up were discussed with the patient. Differential Diagnosis Differential diagnosis: Likely other (Contusion, fracture) Imaging Data Right hand x-ray: Radiologist's impression: ITS Impressions Hand X-Ray 02/07/24 21:53 IMPRESSION: Unremarkable right hand radiographs. Electronically authenticated by: DAVID BRITO Date: 02/07/2024 22:14 Discharge Plan Discharge Chief Complaint: Extremity Injury, Upper Clinical Impression: Contusion of hand, right Patient Disposition: Home, Self-Care Time of Disposition Decision: 22:19 Condition: Good Mode of Transportation: Private Vehicle Print Language: French Instructions: Contusion in Adults (ED) Referrals: Physician,Non-Staff, MD [Primary Care Provider] - 1 week
== END 2024-02-07 22:29 | disposition home or self-care (01) ==
PROVIDERS: Emergency Provider Emergency Medicine
DX: S60.221A Contusion of right hand, initial encounter (principal); W23.0XXA Caught, crushed, jammed, or pinched between moving objects, initial encounter
CPT/HCPCS: 73130; 99283

== ENCOUNTER 2024-03-17 11:53 | Emergency (ER) | payer SELFPAY ==
[2024-03-17 11:56] VITALS: BP 111/61; PULSE 78; TEMP 37; O2SAT 99; BMI 24.5
--- NOTE | 2024-03-17 11:59 | XR_ITS ---
The [address] [address] Patient Name: HIREN SWANN MRN: [id number] date: 2000 Sex: F Assigned Patient Location: ER Current Patient Location: ER Accession/Order Number: [id number] Exam Date: 03/17/2024 12:00 Report Date: 03/17/2024 12:16 At the request of: DIAMOND AVILA Procedure: XR foot LT 2V PROCEDURE: XR foot LT 2V COMPARISON: None. HISTORY: swelling FINDINGS: BONES:No fracture, acute abnormality, or significant arthropathy. SOFT TISSUES:Negative. No visible soft tissue swelling. EFFUSION:None visible. OTHER: Negative. XR/XR foot LT 2V IMPRESSION: No acute radiographic abnormality Electronically authenticated by: EVELYN GOMEZ Date: 03/17/2024 12:16
--- OUTSIDE RECORDS SUMMARY | 2024-03-17 12:00 | XMS_ITS | CCD ---
Author Organization [facility] [place] Inform ion Partnership [facility] Care Team Providers Care Lumber Trimmer Name Role Phone Zhane Graves Unavailable ELEAZAR, DR RANJAN Horvath Attending Unavailabl e ZIEARLINE, DR LORENA Ramires Consulting Unavailable ELEAZAR, DR RANJAN Horvath Admitting Unavailabl e REQUEST, NONE LISTED Primary Care Unavaila YOKASTA Pacheco Consulting Unavailable MAYNOR ELKINS Admitting Unavailable LEATHA DIETZ Consulting Unavailable MAYNOR ELKINS Attending Unavailable REQUEST, DR CALLEJAS LISTED Primary Care Unavaila MARCO Cunningham Consulting Unavailable MARKER, DR BETTS Admitting Unavailable REQUEST, NONE LISTED Primary Care Unavaila ble MARKER, DR BETTS Attending Unavailable MARKER, DR BETTS Consulting Unavailable SHANTEL WATKINS Consulting Unavailable Warren, Coral Breen Attending Vernell Carmona, Coral Breen Attending MD Damien Trevizo Attending Unavai graeme Alexandre, Luis Antonio Escalante Attending Unavailable Deana Dotson Attending Unavaila ignacia Carmona, Marino Saleh Attending MD Yifan Xavier Attending Unavailab marla DELAROSA, Na Joens Attending Michelle kirit DELAROSA, Na Jones Attending Michelle vailaignacia NO PCP, NO PCP Primary Care Unavailable YOKASTA CALHOUN Attending Unavaila KELLEY Baker Attending Unavailable KELLEY GALVAN Referring Unavailable NO [...] ZARATE Attending Unavailable DAVID ZARATE Attending Unavailable TESSADAVID CARRASQUILLO Referring Unavailable NO PCP, NO PCP Primary Care Unavailable NO PCP, NO PCP Primary Care Unavailable TESSADAVID CARRASQUILLO H Attending Unavailable TESSADAVID CARRASQUILLO H Referring Unavailable NO PCP, NO PCP Primary Care Unavailable RICKY DE GUZMAN Attending Unavailable NO PCP, NO PCP Primary Care Unavailable RICKY DE GUZMAN Attending Unavailable WALKERRICKY R Referring Unavailable NO PCP, NO PCP Primary Care Unavailable NO PCP, NO PCP Primary Care Unavailable Allergies Allergy Classification Reported Allergen(s) Allergy Type Date of Onset Reaction(s) Facility (1 source) No Known Medication Allergies; Translations: [No Known Medication Allergies] Propensity to adverse reactions to drug (disorder) [facility] Repository Medications Current Medications Medication Drug Class(es) Dates Sig (Normalized) Sig (Original) [id number] 200 actuat albuterol 0.09 mg/actuat metered dose [...] Classification Problem Date Documented Da te Episodic/Chronic Disorders of teeth and jaw (2 sources) Reversible pulpitis; 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] Onset: 12-11-2023 Episodic Headache; including migraine (1 source) Headache; including migraine; Translations: [Headache, unspecified] Onset: 03-02-2024 Other connective tissue disease (1 source) Myalgia, unspecified site; Translations: [MYALGIA UNSPECIFIED SITE] Onset: 12-29-2021 Episodic Other connective tissue disease (1 source) Hand pain Onset: 02-07-2024 Episodic Other injuries and conditions due to external causes (1 source) Unspecified injury of head, initial encounter; Translations: [Unspecified injury of head, initial encounter] Onset: 03-02-2024 Episodic Other injuries and conditions due to external causes (1 source) Injury of head Onset: 03-02-2024 Episodic Other non-traumatic joint disorders (1 source) Pain in left shoulder; Translations: [Pain in left shoulder] Onset: 02-14-2024 Episodic Other non-traumatic joint disorders (1 source) Shoulder pain Onset: 02-14-2024 Episodic Spondylosis; intervertebral disc disorders; other back problems (7 sources) Pain in thoracic spine; Translations: [Sacrococcygeal disorders, not elsewhere classified] Onset: 05-16-2021 Episodic Substance-related disorders (1 source) Nicotine dependence, cigarettes, uncomplicated; Translations: [NICOTINE DEPEND CIGARETTES UNCOMP] Onset: 12-29-2021 Chronic Unclassified (1 source) PERSONAL HISTORY OF [...] pain; Translations: [Abdominal pain] Onset: 12-03-2023 Episodic E Codes: Fall (1 source) Fall (on) [...] elbow] Onset: 07-05-2023 Episodic Other upper respiratory disease (1 source) Pain in throat Onset: 10-16-2023 Episodic Other upper respiratory infections (1 source) Acute upper respiratory infection, unspecified; Translations: [ACUTE UP RESPIRATORY INFECTION UNS] Onset: 06-05-2021 Episodic Otitis media and related conditions (1 source) Otitis media, unspecified, unspecified ear; Translations: [Otitis media, unspecified, unspecified ear] Onset: 10-16-2023 Episodic Viral infection (1 source) COVID-19 Onset: 05-04-2021 Resolved: 05-04-2021 Results Test Name Value Interpretation Reference Range Facility CT BRAIN WO CONTon CT BRAIN WO CONT CT BRAIN WO CONT CT BRAIN WO CONT CLINICAL HISTORY: Moderate to severe head trauma. Headache. COMPARISON: CT head 08/17/2016. TECHNIQUE: CT brain without intravenous contrast. Automated exposure control was utilized. All CT scans at this facility use dose modulation, iterative reconstruction, and/or weight based dosing when appropriate to reduce radiation dose to as low as reasonably achievable. FINDINGS: No acute intracranial hemorrhage, mass effect, shift of midline structures, or abnormal extra axial fluid collection. Yancey-white differentiation is preserved. Ventricular system size and morphology are normal, basal cisterns are patent. Orbits are symmetric. No depressed or displaced calvarial fracture. Visualized paranasal sinuses are well aerated. Mastoid air cells are clear. IMPRESSION: * No acute intracranial findings. Finalized by Charly Jay MD on 03/02/2024 8:22 PM Normal [facility] XR SHOULDER LT MIN 2 VWSon 0 02-14-2024 XR SHOULDER LT MIN 2 VWS XR SHOULDER LT MIN 2 VWS CLINICAL INFORMATION: Injury TECHNIQUE: XR SHOULDER LT MIN 2 VWS 3 views left shoulder were obtained. There is no acute osseous abnormality no fractures seen. No malalignment. IMPRESSION: No acute findings. Finalized by Nishant House MD on 02/14/2024 9:53 PM Normal [facility] XR HAND RT MIN 3 VWSon 02-06 XR HAND RT MIN 3 VWS XR HAND RT MIN 3 VW S HISTORY: Pain, trauma COMPARISON: None FINDINGS: Multiple views of the right hand were obtained. No acute fracture or malalignment. No focal soft tissue abnormality. IMPRESSION: * No acute abnormality. Finalized by Tapan Celeste MD on 02/07/2024 7:57 PM Normal [facility] CT ABDOMEN AND PELVIS WO CON Ton [...] Emmanuel MD on 12/03/2023 9:00 PM Normal [facility] HCG ( test) Ql (U)o n 12-03-2023 Beta HCG ( test) Ql (U) Negative Normal NEG [facility] Comment on above: Performed By: #### 2 106-3 #### [facility] ([id number]) [address] [place] [address] URN MACROSCOPIC NURon 2023 BILIRUBIN DEE Negative Normal NEG [facility] Comment on above: Performed By: #### N UM #### [facility] ([id number]) [address] [place] [address] BLOOD/HGB DEE Negative Normal NEG [facility] Comment on above: Performed By: #### N UM #### [facility] ([id number]) [address] [place] [address] [place] [address] GLUCOSE DEE Negative Normal NEG [facility] Comment on above: Performed By: #### N UM #### [facility] ([id number]) [address] [place] [address] [place] [address] KETONES DEE Negative Normal NEG [facility] Comment on above: Performed By: #### N UM #### [facility] ([id number]) [address] [place] [address] LEUKOCYTE ESTERASE DEE Negative Normal NEG [facility] Comment on above: Performed By: #### N UM #### [facility] ([id number]) [address] [place] [address] [place] [address] NITRITE DEE Negative Normal NEG [facility] Comment on above: Performed By: #### N UM #### [facility] ([id number]) [address] [place] [address] PH DEE 6.0 Normal 5.0-8.5 [facility] Comment on above: Performed By: #### N UM #### [facility] ([id number]) [address] [place] [address] [place] [address] PROTEIN DEE Trace Abnormal NEG [facility] Comment on above: Performed By: #### N UM #### [facility] ([id number]) [address] [place] [address] [place] [address] SPECIFIC GRAVITY DEE >=1.030 Normal 1.003-1.035 [facility] Comment on above: Performed By: #### N UM #### [facility] ([id number]) [address] [place] [address] [place] [address] UROBILINOGEN DEE 0.2 eu/dL Normal <1.1 [facility] Comment on above: Performed By: #### N UM #### [facility] ([id number]) [address] [place] [address] RAPID STREP SCR NURSINGon S. pyogenes Ag EIA Ql (Throat) Negative Normal NEG [facility] Comment on above: Performed By: #### 6 556-5 #### [facility] ([id number]) [address] [facility], [place] [address] XR WRIST LT MIN 3 VWSon 03-0 [...] Blackwell DO on 08/02/2023 6:09 PM Normal [facility] XR ELBOW RT MIN 3 VWSon 02-0 XR ELBOW RT MIN 3 VWS XR ELBOW RT MIN 3 VWS Right elbow: HISTORY: Right elbow pain. 3 views the right elbow were obtained. There is no acute osseous, articular, or soft tissue abnormality IMPRESSION: Negative exam. Finalized by Nishant House MD on 07/05/2023 4:58 PM Normal [facility] ED Clinical Summaryon 2021 ED Clinical Summary (Inserted Image. Michelle ble to display) [address] [address] ED Clinical Summary Person Information Name: Debo Swann[facility] Age: 22 Years : 2000 Sex: Female PCP: Marital Status: Single Phone: Race: White Ethnicity: Not or Language: Spanish Visit Reason: Foot pain-swelling; Extremities pain - swelling Acuity: 4 Enc Type: Emergency Med Service: Emergency Medicine Arrival: 03/22/2022 11:56:48 Discharge: 03/22/2022 13:30:00 LOS: 000 01:34 Checkin: 03/22/2022 11:56:48 Checkout: 03/22/2022 13:30:00 Dispo Type: Home or Self Care Address: [address] [facility] [place] [address] Provider Notes: Diagnosis: 1:Contusion of right foot [...] This Visit Final Med List: New Medications [facility]/pharmacy #[id number], [address], [place] [id number], [phone] naproxen (naproxen 500 mg oral tablet) 1 [...] 7 Days. Refills: 0. Last Dose: __ [facility]/pharmacy #[id number], [address], [place] [id number], [phone] naproxen (naproxen 500 mg oral tablet) 1 [...] 12:21:24 Follow up: With: Address: When: Lorena Borges[address] [phone] Business (1) With: Address: When: Family Doctor Within 3 to 5 days With: Address: When: ER Comments: For worsening symptoms, fever greater than 102, intolerable pain. Discharge Orders: Discharge Patient 03/22/22 13:11:00 EDT, Discharge to Home, Self Return to Work/School 03/22/22 13:28:00 EDT, 03/23/22 13:29:00 EDT, 03/22/22 13:28:00 EDT Patient Education Information: Foot Contusion [facility] Poison Help line: . [facility] Hotline: [place] Tobacco Quit Line: [place], [place]) [address]: [phone] [place], [place]) [address]: [phone] [facility] [address] [place], [place]: [phone] Normal [facility] ED Note-Physicianon 03-22-20 ED Note-Physician Chief Complaint [...] intact. Normal capillary refill. No deformity] Skin: [[place], warm, dry. No rashes, cellulitis, or petechiae. [...] # 30 tabs, 0 Refill(s), 04/06/22 13:11:00 EST, Pharmacy: [id number] Discharge Patient Return to Work/School Refresh vitals [...] Franky Engle Electronically signed by ___ Kristine DAWSON, Coral Breen 03/22/22 13:48 EDT Normal [facility] C Urineon 03-17-2022 C Urine Order added by Ara rn rule. Final >100,000 cfu/ml Mixed gram positive shree isolated. with . Predominantly 50-100,000 cfu/ml Streptococcus agalactiae (Group B) isolated Penicillin is the drug of choice. No susceptibility unless requested due to penicillin allergy or treatment failure. ORGANISM Strep B Abnormal [facility] Comment on above: Performed By: #### . Automated Diff #### [address] [address] .UA Microscp Aon 03-15-2022 UA Bacteria Present Abnormal Absent [facility] Comment on above: Performed By: #### L IVER #### [place] [id number] UA Mucus Present Abnormal Absent [facility] Comment on above: Performed By: #### L IVER #### [address] [place] [address] UA RBC Quant 8 /HPF High 0-5 [facility] Comment on above: Performed By: #### L IVER #### [address] [address] UA Squepi Cells Quant 27 /HPF Normal 0-29 [facility] Comment on above: Performed By: #### L IVER #### [address] [address] UA WBC Quant 12 /HPF High 0-5 [facility] Comment on above: Performed By: #### L IVER #### [address] [address] COV19 Rapidon 03-15-2022 Employed in healthcare? No Normal [facility] Comment on above: Performed By: #### C [id number] #### [address] [place] [address] Group care resident? No Normal [facility] Comment on above: Performed By: #### C [id number] #### [address] [place] [address] In ICU? No Normal [facility] Comment on above: Performed By: #### C [id number] #### [address] [address] status? Not Applicable Normal [facility] Comment on above: Performed By: #### C [id number] #### [address] [address] Reason for Rapid Test COVID Exposure Normal [facility] Comment on above: Performed By: #### C D:[id number] #### [address] [address] SARS-CoV-2 (COVID-19) RNA GENIA+probe Ql (Unsp spec) Negative Normal Negative [facility] Comment on above: Result Comment: The 2019 [...] using the ID NOW COVID-19 test by [employer], which has received Emergency Use Authorization (EUA) [...] following links: Fact Sheet for HealthCare Providers: https://www.fda.gov/media/506390/download Fact Sheet for Patients: https://www.fda.gov/media/709464/download Performed By: #### C D:[id number] #### [place] [address] SARS-CoV-2 (COVID-19) RNA GENIA+probe Ql (Unsp spec) No Normal [facility] Comment on above: Performed By: #### C D:[id number] #### [place] [id number] Symptomatic as defined by CDC? No Normal [facility] Comment on above: Performed By: #### C [id number] #### [address] [address] ED Clinical Summaryon 2021 ED Clinical Summary (Inserted Image. Michelle ble to display) [address] [id number] ED Clinical Summary Person Information Name: Debo Swann Jocelyn/[facility] Age: 22 Years : 2000 Sex: Female PCP: Marital Status: Single Phone: Race: White Ethnicity: Not or Language: Spanish Visit Reason: Diarrhea; Nausea; Dyspnea; Dyspnea - adult Acuity: 4 Enc Type: Emergency Med Service: Emergency Medicine Arrival: 03/15/2022 11:01:09 Discharge: 03/15/2022 14:27:00 LOS: 000 03:26 Checkin: 03/15/2022 11:01:09 Checkout: 03/15/2022 14:27:00 Dispo Type: Home or Self Care Address: [address] [id number] Provider Notes: History of Present Illness The [...] no edema, no swelling, no redness] Skin: [[place], warm, dry. No rashes, cellulitis, or petechiae. [...] Visit Final Med List: New Medications [id number], [address] [place], [place] [id number], [phone] ondansetron (ondansetron 4 mg oral tablet, disintegrating) 1 Tabs Oral (given by mouth) 3 time (more content not included)... Normal [facility] ED Note-Physicianon 03-15-20 ED Note-Physician Chief Complaint [...] no edema, no swelling, no redness] Skin: [[place], warm, dry. No rashes, cellulitis, or petechiae. [...] tabs, 0 Refill(s), 03/22/22 14:16:00 EDT, Pharmacy: [facility]/pharmacy #[id number] sulfamethoxazole-trimet hoprim, 1 tabs, Oral, BID, X 3 days, # 6 tabs, 0 Refill(s), 03/18/22 14:16:00 EDT, Pharmacy: [facility]/pharmacy #[id number] Culture Urine Discharge Patient Refresh vitals [...] Urobilinogen 03/15/ (more content not included)... Normal [facility] UA w Culture if Indon 2021 Color (U) Yellow Normal [facility] Comment on above: Performed By: #### U CI #### [facility] [address] [place] [address] Ketones Ql (U) Trace Abnormal Negative [facility] Comment on above: Performed By: #### U CI #### [facility] [address] [facility] [place] [address] UA Blood Negative Normal Negative [facility] Comment on above: Performed By: #### U CI #### [facility] [address] [place] [address], [place] [address] UA Clarity Turbid Normal [facility] Comment on above: Performed By: #### U CI #### [facility] [address] [place] [address], [place] [address] UA Glucose Normal Normal Negative [facility] Comment on above: Performed By: #### U CI #### [facility] [address] [place] [address], [place] [address] UA Leukocyte Esterase 500 Abnormal Negative [facility] Comment on above: Performed By: #### U CI #### [address] [place] [address] UA Nitrite Negative Normal Negative [facility] Comment on above: Performed By: #### U CI #### [address] [place] [address] UA pH 5.5 Normal 4.5 - 7.8 [facility] Comment on above: Performed By: #### U CI #### [facility] [address] [place] [address], [place] [address] UA Protein 20 mg/dL Normal Negative [facility] Comment on above: Performed By: #### U CI #### [facility] [address] [place] [address], [place] [address] UA Source Clean Catch Normal [facility] Comment on above: Performed By: #### U CI #### [facility] [address] [place] [address], [place] [address] UA Spec Grav 1.024 Normal 1.003-1.035 [facility] Comment on above: Performed By: #### U CI #### [address] [place] [address] UA Urobilinogen Normal Normal 0.2 - 1.0 [facility] Comment on above: Performed By: #### U CI #### [address] [place] [address] Urobilinogen (U) [Mass/Vol] Negative Normal Negative [facility] Comment on above: Performed By: #### U CI #### [facility] [address] [place] [address] ED Note-Physicianon 03-09-20 ED Note-Physician Chief Complaint [...] Rd Echols DO Electronically signed by ___ Damien Flores MD 03/09/22 01:15 EDT Normal [facility] ED Clinical Summaryon 2021 ED Clinical Summary (Inserted Image. Michelle ble to display) [address] [address] ED Clinical Summary [facility] Age: 22 Years : 2000 Sex: Female PCP: Marital Status: Single Phone: Race: White Ethnicity: Not or Language: Spanish Visit Reason: Chest pain; Chest pain - Cardiac Acuity: 3 Enc Type: Emergency Med Service: Emergency Medicine Arrival: 2022 18:49:29 Discharge: 2022 21:29:00 LOS: 000 02:40 Checkin: 2022 18:49:29 Checkout: 2022 21:29:00 Dispo Type: Home or Self Care Address: [address] [address] Provider Notes: Diagnosis: 1:Chest pain Problems No [...] Unassigned Dylon Doyle ED Nurse 2022 19:56:56 Damien Flores MD ED Provider 2022 20:21:38 Follow up: With: Address: When: Call the [facility] physician referral line [phone] Discharge Orders: Discharge Patient 03/08/22 21:11:00 EDT, Discharge to Home, Self Return to Work/School 03/08/22 21:11:00 EDT, 03/09/22 6:00:00 EDT, 03/08/22 21:11:00 EDT Patient Education Information: Chest Pain, Noncardiac [facility] Poison Help line: . [facility] Hotline: [place] Tobacco Quit Line: [facility] ([place], [place]) [address]: [phone] [facility] ([place], [place]) [address]: [phone] [facility] [address], [place]: [phone] Normal [facility] XR Chest 2 Viewson 2 XR Chest 2 Views EXAM: XR CHEST [...] Electronically Signed in Other Vendor System) Normal [facility] .UA Microscp Aon 03-05-2022 UA Bacteria Present Abnormal Absent [facility] Comment on above: Performed By: #### C [id number] #### [facility] [address] [place] [address] UA Mucus Present Abnormal Absent [facility] Comment on above: Performed By: #### C [id number] #### [facility] [address] [place] [address] UA RBC Quant 2 /HPF Normal 0-5 [facility] Comment on above: Performed By: #### C [id number] #### [facility] [address] [place] [address] UA Sperm Present Abnormal Absent [facility] Comment on above: Performed By: #### C [id number] #### [address] [address] UA Squepi Cells Quant 5 /HPF Normal 0-29 [facility] Comment on above: Performed By: #### C [id number] #### [address] [address] UA WBC Quant 4 /HPF Normal 0-5 [facility] Comment on above: Performed By: #### C D:[id number] #### [address] [address] .eGFRon 03-05-2022 GFR/1.73 sq M.predicted MDRD (S/P/Bld) [Vol rate/Area] mL/min/{1.73_m2} Normal >=60 [facility] Comment on above: Result Comment: [facility] Laboratories have implemented the eGFR calculation approach [...] years Performed By: #### E GFR #### [address] [address] CBC w/ Diffon 03-05-2022 Erythrocyte distribution width (RBC) [Ratio] 15.0 % High 11.6-14.8 [facility] Comment on above: Performed By: #### E GFR #### [address] [address] Hematocrit (Bld) [Volume fraction] 38.6 % Normal 36.0-46.0 [facility] Comment on above: Performed By: #### E GFR #### [address] [address] Hemoglobin (Bld) [Mass/Vol] 12.6 g/dL Normal 12.0-16.0 [facility] Comment on above: Performed By: #### E GFR #### [place] [id number] MCH (RBC) [Entitic mass] 26.1 pg Low 27.0-35.0 [facility] Comment on above: Performed By: #### E GFR #### [place] [id number] MCHC 32.6 % Normal 31.0-37.0 [facility] Comment on above: Performed By: #### E GFR #### [place] [id number] MCV (RBC) [Entitic vol] 79.9 fL Low 80.0-100.0 [facility] Comment on above: Performed By: #### E GFR #### [place] [id number] Platelet 194 x10*3/mcL Normal 150-350 [facility] Comment on above: Performed By: #### E GFR #### [address] [address] Platelet mean volume (Bld) [Entitic vol] 11.4 fL High 6.7-10.6 [facility] Comment on above: Performed By: #### E GFR #### [address] [address] RBC 4.83 x10*6/mcL Normal 3.80-5.20 [facility] Comment on above: Performed By: #### E GFR #### [place] [id number] WBC 7.4 x10*3/mcL Normal 4.5-11.0 [facility] Comment on above: Performed By: #### E GFR #### [address] [address] CMPon 03-05-2022 Albumin [Mass/Vol] 4.5 g/dL Normal 3.2-4.9 [facility] Comment on above: Performed By: #### C [id number] #### [address] [address] Albumin/Globulin [Mass ratio] 1.4 {ratio} Normal 1.1-2.2 [facility] Comment on above: Performed By: #### C [id number] #### [address] [address] Alk Phos 67 IU/L Normal 32-91 [facility] Comment on above: Performed By: #### C [id number] #### [address] [address] ALT [Catalytic activity/Vol] 16 U/L Normal 14-54 [facility] Comment on above: Performed By: #### C [id number] #### [address] [address] Anion gap [Moles/Vol] 12 mmol/L Normal 7-17 [facility] Comment on above: Performed By: #### C [id number] #### [address] [address] AST [Catalytic activity/Vol] 20 U/L Normal 15-41 [facility] Comment on above: Performed By: #### C [id number] #### [address] [address] Bili Total 0.4 mg/dL Normal 0.3-1.2 [facility] Comment on above: Performed By: #### C [id number] #### [address] [address] Calcium [Mass/Vol] 9.4 mg/dL Normal 8.5-10.3 [facility] Comment on above: Performed By: #### C [id number] #### [address] [address] Chloride [Moles/Vol] 103 mmol/L Normal 98-110 [facility] Comment on above: Performed By: #### C [id number] #### [address] [address] CO2 [Moles/Vol] 26 mmol/L Normal 22-32 [facility] Comment on above: Performed By: #### C [id number] #### [address] [address] Creatinine [Mass/Vol] 0.72 mg/dL Normal 0.44-1.03 [facility] Comment on above: Performed By: #### C [id number] #### [address] [address] Glucose [Mass/Vol] 91 mg/dL Normal 70-99 [facility] Comment on above: Performed By: #### C [id number] #### [address] [address] Potassium [Moles/Vol] 3.9 mmol/L Normal 3.4-4.8 [facility] Comment on above: Performed By: #### C [id number] #### [address] [address] Protein [Mass/Vol] 7.7 g/dL Normal 6.5-8.1 [facility] Comment on above: Performed By: #### C [id number] #### [address] [address] Sodium [Moles/Vol] 137 mmol/L Normal 133-142 [facility] Comment on above: Performed By: #### C [id number] #### [address] [address] Urea nitrogen [Mass/Vol] 5 mg/dL Low 8-26 [facility] Comment on above: Performed By: #### C [id number] #### [address] [address] Urea nitrogen/Creatinine [Mass ratio] 6.9 mg/mg Low 10.0-20.0 [facility] Comment on above: Performed By: #### C [id number] #### [address] [address] COV19 Rapidon 03-05-2022 Employed in healthcare? No Normal [facility] Comment on above: Performed By: #### U CI #### [place] [id number] Group care resident? No Normal [facility] Comment on above: Performed By: #### U CI #### [place] [id number] In ICU? No Normal [facility] Comment on above: Performed By: #### U CI #### [place] [id number] status? Not Applicable [facility] Comment on above: Performed By: #### U CI #### [address] [address] Reason for Rapid Test COVID Exposure Normal [facility] Comment on above: Performed By: #### U CI #### [place] [id number] SARS-CoV-2 (COVID-19) RNA GENIA+probe Ql (Unsp spec) Negative Normal Negative [facility] Comment on above: Result Comment: The 2019 [...] using the ID NOW COVID-19 test by [employer], which has received Emergency Use Authorization (EUA) [...] following links: Fact Sheet for HealthCare Providers: https://www.fda.gov/media/075070/download Fact Sheet for Patients: https://www.fda.gov/media/775876/download Performed By: #### U CI #### [place] [address] SARS-CoV-2 (COVID-19) RNA GENIA+probe Ql (Unsp spec) No Normal [facility] Comment on above: Performed By: #### U CI #### [place] [address] Symptomatic as defined by [facility]? No Normal [facility] Comment on above: Performed By: #### U CI #### [place] [id number] CT Brain w/o Contraston 02-24 CT Brain w/o Contrast CT brain without contrast on 03/05/2022 Clinical history: Dizziness Comparison: None Technique: Multiple axial images of the brain were obtained from the skull base to the vertex. Findings: There is no extra-axial fluid collection, mass effect or midline shift. The ventricular system and the brain parenchymal volume are appropriate for patient's age. The yancey-white matter junction is preserved. There is no intracranial hemorrhage. . The visualized paranasal sinuses are unremarkable. IMPRESSION: No CT evidence of acute intracranial pathology. Final Dictated by: Bhupinder Page MD Dictated DT/TM: 10.10.2022 10:36 am Signed by: Kaylee VILLALBA, Bhupinder Foster Signed (Electronic Signature): 03.05.2022 10:39 am (If Report Is Signed, Electronically Signed in Other Vendor System) Normal [facility] Diff Autoon 03-05-2022 Baso Absolute 0.1 x10*3/mcL Normal 0.0-0.2 [facility] Comment on above: Performed By: #### . Automated Diff #### [address] [address] Basophils/100 WBC (Bld) 1.0 % Normal 0.0-1.5 [facility] Comment on above: Performed By: #### . Automated Diff #### [address] [address] Eos Absolute 0.2 x10*3/mcL Normal 0.0-0.4 [facility] Comment on above: Performed By: #### . Automated Diff #### [address] [address] Eosinophils/100 WBC (Bld) 3.1 % Normal 0.0-5.4 [facility] Comment on above: Performed By: #### . Automated Diff #### [address] [address] Lymph Absolute 1.9 x10*3/mcL Normal 1.0-4.8 [facility] Comment on above: Performed By: #### . Automated Diff #### [address] [address] Lymphocytes/100 WBC (Bld) 25.7 % Low 27.2-40.8 [facility] Comment on above: Performed By: #### . Automated Diff #### [address] [address] [place] Absolute 0.6 x10*3/mcL Normal 0.1-1.1 [facility] Comment on above: Performed By: #### . Automated Diff #### [address] [address] Monocytes/100 WBC (Bld) 8.0 % Normal 3.7-11.9 [facility] Comment on above: Performed By: #### . Automated Diff #### [place] [address] Neutro Absolute 4.6 x10*3/mcL Normal 1.8-7.7 [facility] Comment on above: Performed By: #### . Automated Diff #### [place] [address] Neutro Auto 62.2 % Normal 47.2-70.8 [facility] Comment on above: Performed By: #### . Automated Diff #### [place] [address] ED Clinical Summaryon 2021 ED Clinical Summary (Inserted Image. Michelle ble to display) [place] [address] ED Clinical Summary Person Information Name: Debo Swann Jocelyn/[facility] Age: 21 Years : 2000 Sex: Female PCP: Marital Status: Single Phone: Race: White Ethnicity: Not or Language: Spanish Visit Reason: Dizziness; Nausea; Nausea or vomiting Acuity: 3 Enc Type: Emergency Med Service: Emergency Medicine Arrival: 03/05/2022 09:07:41 Discharge: 03/05/2022 11:49:00 LOS: 000 02:42 Checkin: 03/05/2022 09:07:41 Checkout: 03/05/2022 11:49:00 Dispo Type: Home or Self Care Address: [address] [address] Provider Notes: Diagnosis: 1:Dizziness and giddiness; 2:Labyrinthitis [...] range between ( 27.2 and 40.8 ) [place] Auto: 8.0 % -- Normal range between [...] range between ( 36.0 and 46.0 ) [place] Absolute: 0.6 x10 MCH: 26.1 pg -- [...] Medications Documented Care Team Members: Attending Physician: Baldomero VILLALBA, Luis Antonio Escalante Consulting Physician: Referring Physician: Mei (more content not included)... Normal [facility] ED Note-Physicianon 03-05-20 ED Note-Physician Chief Complaint [...] disease. Her last menstrual period was the 29th of last month and therefore she is [...] a normal (more content not included)... Normal [facility] Flu A&B Ag Rapidon 2 Influenza A Ag Negative Normal Negative [facility] Comment on above: Performed By: #### U CI #### [address] [address] Influenza B Ag Negative Normal Negative [facility] Comment on above: Result Comment: The [employer] [...] departments. Performed By: #### U CI #### [address] [address] Lactic Acid, Randomon 2021 Lactic Acid Lvl 1.3 mmol/L Normal 0.5-2.0 [facility] Comment on above: Performed By: #### L IVER #### [address] [address] Lipaseon 03-05-2022 Lipase Lvl 33 IU/L Normal 22-51 [facility] Comment on above: Performed By: #### L IVER #### [address] [address] TSHon 03-05-2022 TSH Qn 0.37 m[IU]/L Low 0.45-5.33 [facility] Comment on above: Result Comment: Refe rence Ranges for individuals from to 18 years of age were obtained from The Shanelle Nava Handbook (20 ed) published by [facility]. Reference Ranges for Females: Females, 1st Trimester 0.05 ? 3.7 uIU/mL Females, 2nd Trimester 0.31 ? 4.35 uIU/mL Females, 3rd Trimester 0.41 ? 5.18 uIU/mL Performed By: #### L IVER #### [place] [id number] Troponin-Ion 03-05-2022 Troponin I.cardiac [Mass/Vol] ng/mL Normal 0.00-0.03 [facility] Comment on above: Result Comment: An i ncreased Troponin-I value, in the absence of myocardial ischemia, may indicate other etiologies of cardiac damage. Performed By: #### T ROP #### [address] [address] UA w Culture if Indon 2021 Color (U) Light-Yellow Normal [facility] Comment on above: Performed By: #### U CI #### [address] [address] Ketones Ql (U) Negative Normal Negative [facility] Comment on above: Performed By: #### U CI #### [address] [address] UA Blood 3+ Abnormal Negative [facility] Comment on above: Performed By: #### U CI #### [address] [address] UA Clarity Clear Normal [facility] Comment on above: Performed By: #### U CI #### [address] [place] [address] UA Glucose Normal Normal Negative [facility] Comment on above: Performed By: #### U CI #### [address] [place] [address] UA Leukocyte Esterase 25 Abnormal Negative [facility] Comment on above: Performed By: #### U CI #### [address] [address] UA Nitrite Negative Normal Negative [facility] Comment on above: Performed By: #### U CI #### [address] [place] [address] UA pH 6.0 Normal 4.5 - 7.8 [facility] Comment on above: Performed By: #### U CI #### [address] [address] UA Protein Negative Normal Negative [facility] Comment on above: Performed By: #### U CI #### [address] [place] [address] UA Source Clean Catch Normal [facility] Comment on above: Performed By: #### U CI #### [address] [place] [address] UA Spec Grav 1.007 Normal 1.003-1.035 [facility] Comment on above: Performed By: #### U CI #### [address] [address] UA Urobilinogen Normal Normal 0.2 - 1.0 [facility] Comment on above: Performed By: #### U CI #### [address] [place] [address] Urobilinogen (U) [Mass/Vol] Negative Normal Negative [facility] Comment on above: Performed By: #### U CI #### [address] [address] XR Chest 1 Viewon 03-05-2022 XR Chest [...] Electronically Signed in Other Vendor System) Normal [facility] C Urineon 03-01-2022 C Urine Order added by Ara rn rule. Final 30-50,000 cfu/ml Mixed gram positive and gram negative shree isolated. and . 30-50,000 cfu/ml Streptococcus agalactiae (Group B) Penicillin is the drug of choice. No susceptibility unless requested due to penicillin allergy or treatment failure. ORGANISM Strep B Abnormal [facility] Comment on above: Performed By: #### E GFR #### [place] [address] .UA Microscp Aon 02-27-2022 UA Mucus Present Abnormal Absent [facility] Comment on above: Performed By: #### U CI #### [place] [address] UA RBC Quant 3 /HPF Normal 0-5 [facility] Comment on above: Performed By: #### U CI #### [place] [address] UA Squepi Cells Quant 18 /HPF Normal 0-29 [facility] Comment on above: Performed By: #### U CI #### [place] [address] UA WBC Quant 19 /HPF High 0-5 [facility] Comment on above: Performed By: #### U CI #### [address] [address] .eGFRon 02-27-2022 GFR/1.73 sq M.predicted MDRD (S/P/Bld) [Vol rate/Area] mL/min/{1.73_m2} Normal >=60 [facility] Comment on above: Result Comment: [facility] have implemented the eGFR calculation approach [...] Age = years Performed By: #### C [id number] #### [address] [address] Basic Metabolic Profileon Anion gap [Moles/Vol] 8 mmol/L Normal 7-17 [facility] Comment on above: Performed By: #### U CI #### [address] [address] Calcium [Mass/Vol] 8.9 mg/dL Normal 8.5-10.3 [facility] Comment on above: Performed By: #### U CI #### [address] [address] Chloride [Moles/Vol] 103 mmol/L Normal 98-110 [facility] Comment on above: Performed By: #### U CI #### [address] [address] CO2 [Moles/Vol] 29 mmol/L Normal 22-32 [facility] Comment on above: Performed By: #### U CI #### [address] [address] Creatinine [Mass/Vol] 0.81 mg/dL Normal 0.44-1.03 [facility] Comment on above: Performed By: #### U CI #### [address] [address] Glucose [Mass/Vol] 82 mg/dL Normal 70-99 [facility] Comment on above: Performed By: #### U CI #### [address] [address] Potassium [Moles/Vol] 3.5 mmol/L Normal 3.4-4.8 [facility] Comment on above: Performed By: #### U CI #### [address] [address] Sodium [Moles/Vol] 136 mmol/L Normal 133-142 [facility] Comment on above: Performed By: #### U CI #### [address] [address] Urea nitrogen [Mass/Vol] 8 mg/dL Normal 8-26 [facility] Comment on above: Performed By: #### U CI #### [address] [address] Urea nitrogen/Creatinine [Mass ratio] 9.9 mg/mg Low 10.0-20.0 [facility] Comment on above: Performed By: #### U CI #### [address] [address] CBC w/ Diffon 02-27-2022 Erythrocyte distribution width (RBC) [Ratio] 15.4 % High 11.6-14.8 [facility] Comment on above: Performed By: #### E GFR #### [address] [address] Hematocrit (Bld) [Volume fraction] 35.3 % Low 36.0-46.0 [facility] Comment on above: Performed By: #### E GFR #### [place] [id number] Hemoglobin (Bld) [Mass/Vol] 11.5 g/dL Low 12.0-16.0 [facility] Comment on above: Performed By: #### E GFR #### [place] [address] MCH (RBC) [Entitic mass] 26.1 pg Low 27.0-35.0 [facility] Comment on above: Performed By: #### E GFR #### [place] [address] MCHC 32.7 % Normal 31.0-37.0 [facility] Comment on above: Performed By: #### E GFR #### [place] [id number] MCV (RBC) [Entitic vol] 79.6 fL Low 80.0-100.0 [facility] Comment on above: Performed By: #### E GFR #### [place] [address] Platelet 169 x10*3/mcL Normal 150-350 [facility] Comment on above: Performed By: #### E GFR #### [place] [id number] Platelet mean volume (Bld) [Entitic vol] 11.6 fL High 6.7-10.6 [facility] Comment on above: Performed By: #### E GFR #### [place] [id number] RBC 4.43 x10*6/mcL Normal 3.80-5.20 [facility] Comment on above: Performed By: #### E GFR #### [place] [id number] WBC 5.7 x10*3/mcL Normal 4.5-11.0 [facility] Comment on above: Performed By: #### E GFR #### [address] [address] COV19 Rapidon 02-27-2022 Employed in healthcare? Unknown Normal [facility] Comment on above: Performed By: #### E GFR #### [address] [place] [address] Group care resident? No Normal [facility] Comment on above: Performed By: #### E GFR #### [address] [address] In ICU? No Normal [facility] Comment on above: Performed By: #### E GFR #### [address] [address] status? Unknown Normal [facility] Comment on above: Performed By: #### E GFR #### [address] [address] Reason for Rapid Test Inpatient Normal [facility] Comment on above: Performed By: #### E GFR #### [address] [address] SARS-CoV-2 (COVID-19) RNA GENIA+probe Ql (Unsp spec) Negative Normal Negative [facility] Comment on above: Result Comment: The 2019 [...] using the ID NOW COVID-19 test by [employer], which has received Emergency Use Authorization (EUA) [...] following links: Fact Sheet for HealthCare Providers: https://www.[employer].gov/media/001511/download Fact Sheet for Patients: https://www.fda.gov/media/162403/download Performed By: #### E GFR #### [place] [address] SARS-CoV-2 (COVID-19) RNA GENIA+probe Ql (Unsp spec) No Normal [facility] Comment on above: Performed By: #### E GFR #### [place] [address] SARS-CoV-2 (COVID-19) RNA GENIA+probe Ql (Unsp spec) Unknown Normal [facility] Comment on above: Performed By: #### E GFR #### [place] [address] Symptomatic as defined by CDC? Yes Normal [facility] Comment on above: Performed By: #### E GFR #### [place] [address] Diff Autoon 02-27-2022 Baso Absolute 0.1 x10*3/mcL Normal 0.0-0.2 [facility] Comment on above: Performed By: #### L IVER #### [place] [id number] Basophils/100 WBC (Bld) 1.2 % Normal 0.0-1.5 [facility] Comment on above: Performed By: #### L IVER #### [place] [id number] Eos Absolute 0.2 x10*3/mcL Normal 0.0-0.4 [facility] Comment on above: Performed By: #### L IVER #### [place] [id number] Eosinophils/100 WBC (Bld) 3.4 % Normal 0.0-5.4 [facility] Comment on above: Performed By: #### L IVER #### [address] [address] Lymph Absolute 2.0 x10*3/mcL Normal 1.0-4.8 [facility] Comment on above: Performed By: #### L IVER #### [address] [address] Lymphocytes/100 WBC (Bld) 34.5 % Normal 27.2-40.8 [facility] Comment on above: Performed By: #### L IVER #### [address] [address] [place] Absolute 0.5 x10*3/mcL Normal 0.1-1.1 [facility] Comment on above: Performed By: #### L IVER #### [address] [address] Monocytes/100 WBC (Bld) 7.9 % Normal 3.7-11.9 [facility] Comment on above: Performed By: #### L IVER #### [address] [address] Neutro Absolute 3.0 x10*3/mcL Normal 1.8-7.7 [facility] Comment on above: Performed By: #### L IVER #### [address] [address] Neutro Auto 53.0 % Normal 47.2-70.8 [facility] Comment on above: Performed By: #### L IVER #### [address] [address] ED Clinical Summaryon 2021 ED Clinical Summary (Inserted Image. Michelle ble to display) [address] [address] ED Clinical Summary Person Information Name: Debo Swannn [place] Age: 21 Years : 2000 Sex: Female PCP: Marital Status: Single Phone: Race: White Ethnicity: Not or Language: Spanish [facility]: [id number] Visit Reason: Weakness; Weakness or fatigue Acuity: 3 Enc Type: Emergency Med Service: Emergency Medicine Arrival: 02/27/2022 07:44:44 Discharge: 02/27/2022 09:45:00 LOS: 000 02:01 Checkin: 02/27/2022 07:44:44 Checkout: 02/27/2022 09:45:00 Dispo Type: Home or Self Care Address: [address] [facility] [place] [address] Provider Notes: Diagnosis: 1:Viral syndrome Problems No [...] range between ( 27.2 and 40.8 ) [place] Auto: 7.9 % -- Normal range between [...] range between ( 36.0 and 46.0 ) [place] Absolute: 0.5 x10 MCH: 26.1 pg -- [...] Physician: Referring Physician: Provider Role Assigned Unassigned Mauri VILLALBA, Deana Husain ED Provider 02/27/2022 08:02:15 RehanabernardoSherineey Sabina ED Nurse 02/27/2022 08:28:25 Follow up: With: Address: When: regular doctor Within 2 to 4 days, only if needed Discharge Orders: Discharge Patient 02/27/22 9:13:00 EDT, Discharge to Home, Self Return to Work/School 02/27/22 9:13:00 EDT, 03/01/22 9:13:00 EDT, 02/27/22 9:13:00 EDT, Viral syndrome Patient Education Information: Viral Syndrome (Adult) [facility] Poison Help line: . [facility] Hotline: [place] Tobacco Quit Line: [place], [place]) [address]: [phone] [place], [place]) [address]: [phone] [facility] [address] [place], [place]: [phone] [facility] ED Note-Physicianon 02-28-20 ED Note-Physician Chief Complaint [...] in this document, created by the medical lab tech instructor for me, accurately reflects the services I [...] Auto 02/27/22 08:10 34.5 09/13/21 19.1 Low [place] Auto 02/27/22 08:10 7.9 09/13/21 5.6 Eos Auto 02/27/22 08:10 (more content not included)... Normal [facility] S Preg Qlon 02-27-2022 Serum Preg Negative Normal [facility] Comment on above: Result Comment: The hCG Combo Rapid Test has a sensitivity of 10 mIU/mL in serum and is capable of detecting as early as 1 day after the first missed menses. Performed By: #### E GFR #### [address] [address] UA w Culture if Indon 2021 Color (U) Yellow Normal [facility] Comment on above: Performed By: #### U CI #### [address] [address] Ketones Ql (U) Negative Normal Negative [facility] Comment on above: Performed By: #### U CI #### [address] [address] UA Blood 3+ Abnormal Negative [facility] Comment on above: Performed By: #### U CI #### [address] [address] UA Clarity Turbid Normal [facility] Comment on above: Performed By: #### U CI #### [address] [address] UA Glucose Normal Normal Negative [facility] Comment on above: Performed By: #### U CI #### [address] [address] UA Leukocyte Esterase 250 Abnormal Negative [facility] Comment on above: Performed By: #### U CI #### [address] [address] UA Nitrite Negative Normal Negative [facility] Comment on above: Performed By: #### U CI #### [address] [address] UA pH 6.0 Normal 4.5 - 7.8 [facility] Comment on above: Performed By: #### U CI #### [address] [address] UA Protein 30 mg/dL Abnormal Negative [facility] Comment on above: Performed By: #### U CI #### [address] [address] UA Source Clean Catch Normal [facility] Comment on above: Performed By: #### U CI #### [address] [address] UA Spec Grav 1.027 Normal 1.003-1.035 [facility] Comment on above: Performed By: #### U CI #### [address] [address] UA Urobilinogen 2 mg/dL Abnormal 0.2 - 1.0 [facility] Comment on above: Performed By: #### U CI #### [address] [address] Urobilinogen (U) [Mass/Vol] Negative Normal Negative [facility] Comment on above: Performed By: #### U CI #### [address] [address] CBC AUTO DIFFon 12-28-2021 BASO # 0.0 103/ul Normal 0.0-0.1 [facility] Comment on above: Performed By: #### C BC #### [facility] [address] [place] [address] Dr. Bartolo Pierre Basophils/100 WBC (Bld) 0.4 % Normal 0.2-2.0 [facility] Comment on above: Performed By: #### C BC #### [facility] [address] [place] [address] Dr. Bartolo Pierre EO # 0.2 103/ul Normal 0.0-0.7 [facility] Comment on above: Performed By: #### C BC #### [facility] [address] [place] [address] Dr. Bartolo Pierre Eosinophils/100 WBC (Bld) 2.2 % Normal 0.9-7.0 [facility] Comment on above: Performed By: #### C BC #### [facility] [address] [place] [address] Dr. Bartolo Pierre Erythrocyte distribution width (RBC) [Ratio] 14.4 % Normal 11.0-15.0 [facility] Comment on above: Performed By: #### C BC #### [facility] [address] [place] [address] Dr. Bartolo Pierre Hematocrit (Bld) [Volume fraction] 36.1 % Normal 36.0-48.0 [facility] Comment on above: Performed By: #### C BC #### [facility] [address] [place] [address] Dr. Bartolo Pierre Hemoglobin (Bld) [Mass/Vol] 11.5 g/dL Critically low 12.0-16.0 [facility] Comment on above: Performed By: #### C BC #### [facility] [address] [place] [address] Dr. Bartolo Pierre IG # 0.01 10e3/ul Normal 0.00-0.03 [facility] Comment on above: Performed By: #### C BC #### [facility] [address] [place] [address] Dr. Bartolo Pierre IG % 0.1 % Normal 0.0-0.5 [facility] Comment on above: Performed By: #### C BC #### [facility] [address] [place] [address] Dr. Bartolo Pierre LYMPH # 2.0 103/ul Normal 1.2-3.8 [facility] Comment on above: Performed By: #### C BC #### [facility] [address] [place] [address] Dr. Bartolo Pierre Lymphocytes/100 WBC (Bld) 25.2 % Normal 20.5-60.0 [facility] Comment on above: Performed By: #### C BC #### [facility] [address] [place] [address] Dr. Bartolo Pierre MANUAL DIFF REQ NO Normal The [facility] Comment on above: Performed By: #### C BC #### [facility] [address] [place] [address] Dr. Bartolo Pierre MCH (RBC) [Entitic mass] 25.8 pg Critically low 26.7-34.0 The [facility] Comment on above: Performed By: #### C BC #### [facility] [address] [place] [address] Dr. Bartolo Pierre MCHC (RBC) [Mass/Vol] 31.9 g/dL Normal 29.9-35.2 The [facility] Comment on above: Performed By: #### C BC #### [facility] [address] [place] [address] Dr. Bartolo Pierre MCV (RBC) [Entitic vol] 80.9 fL Critically low 81.0-99.0 The [facility] Comment on above: Performed By: #### C BC #### [facility] [address] [place] [address] Dr. Bartolo Pierre MONO # 0.7 103/ul Normal 0.3-0.8 The [facility] Comment on above: Performed By: #### C BC #### [facility] [address] [place] [address] Dr. Bartolo Pierre Monocytes/100 WBC (Bld) 8.2 % Normal 1.7-12.0 The [facility] Comment on above: Performed By: #### C BC #### [facility] [address] [place] [address] Dr. Bartolo Pierre NEUT # 5.1 103/ul Normal 1.4-6.5 The [facility] Comment on above: Performed By: #### C BC #### [facility] [address] [place] [address] Dr. Bartolo Pierre Neutrophils/100 WBC (Bld) 63.9 % Normal 43.0-75.0 The [facility] Comment on above: Performed By: #### C BC #### [facility] [address] [place] [address] Dr. Bartolo Pierre Platelet mean volume (Bld) [Entitic vol] 13.2 fL Normal 9.5-13.5 The [facility] Comment on above: Performed By: #### C BC #### [facility] [address] [address] [address] Bartolo Pierre PLT 177 103/ul Normal 150-450 The [facility] Comment on above: Performed By: #### C BC #### [facility] [address] [place] [address] Dr. Bartolo Pierre RBC 4.46 106/ul Normal 4.20-5.40 [facility] Comment on above: Performed By: #### C BC #### [facility] [address] [place] [address] Dr. Bartolo Pierre WBC 7.9 103/ul Normal 4.0-11.0 [facility] Comment on above: Performed By: #### C BC #### [facility] [address] [place] [address] Dr. Bartolo Pierre CRPon 12-28-2021 CRP 0.5 mg/dL Normal <=1.0 [facility] Comment on above: Performed By: #### C RP, CMP #### [facility] [address] [place] [address] Dr. Bartolo Pierre Covid-19 PCR (CVDTB)on SARS-CoV-2 (COVID-19) RNA GENIA+probe Ql (Unsp spec) Not detected Normal NOT DETECTED The [facility] Comment on above: Result Comment: When diagnostic [...] for this test is supported by the [place] of [employer] and Human Service's declaration that [...] longer be used). Performed By: #### C VDTBH ####[facility] [address] [address]Dr. Bartolo Pierre ER URINE PROFILEon 2 Bilirubin Ql (U) Negative Normal NEGATIVE The [facility] Comment on above: Performed By: #### U MICRO, ERUR, PREGU #### [facility] [address] [address] [address] Bartolo Pierre Clarity (U) CLEAR Normal CLEAR The [facility] Comment on above: Performed By: #### U MICRO, ERUR, PREGU #### [facility] [address] [address] [address] Bartolo Pierre Color (U) LT. YELLOW Normal YELLOW The [facility] Comment on above: Performed By: #### U MICRO, ERUR, PREGU #### [facility] [address] [address] [address] Bartolo ZHANG A micrscopic examination will be performed if indicated. Normal The [facility] Comment on above: Performed By: #### U MICRO, ERUR, PREGU #### [facility] [address] [address] [address] Bartolo Pierre Glucose Ql (U) Negative Normal NEGATIVE The [facility] Comment on above: Performed By: #### U MICRO, ERUR, PREGU #### [facility] [address] [address] [address] Bartolo Pierre Hemoglobin Ql (U) LARGE Abnormal NEGATIVE [facility] Comment on above: Performed By: #### U MICRO, ERUR, PREGU #### [facility] [address] [address] [address] Bartolo Pierre Ketones Ql (U) Negative Normal NEGATIVE The [facility] Comment on above: Performed By: #### U MICRO, ERUR, PREGU #### [facility] [address] [address] [address] Bartolo Pierre LEUKOCYTES Negative Normal NEGATIVE [facility] Comment on above: Performed By: #### U MICRO, ERUR, PREGU #### [facility] [address] [address] [address] Bartolo Pierre Nitrite Ql (U) Negative Normal NEGATIVE The [facility] Comment on above: Performed By: #### U MICRO, ERUR, PREGU #### [facility] [address] [place] [address] Dr. Bartolo Pierre pH (U) 8.0 [pH] Normal 5-9 [facility] Comment on above: Performed By: #### U MICRO, ERUR, PREGU #### [facility] [address] [address] [address] Bartolo Pierre SPEC GRAVITY 1.015 Normal 1.005-<=1.025 [facility] Comment on above: Performed By: #### U MICRO, ERUR, PREGU #### [facility] [address] [place] [address] Dr. Bartolo Pierre UA PROTEIN Negative Normal NEGATIVE/ TRACE [facility] Comment on above: Performed By: #### U MICRO, ERUR, PREGU #### [facility] [address] [place] [address] Dr. Bartolo Pierre UR MICRO IND INDICATED Normal [facility] Comment on above: Performed By: #### U MICRO, ERUR, PREGU #### [facility] [address] [place] [address] Dr. Bartolo Pierre Urobilinogen Qn (U) 0.2 {Mati'U}/dL Normal 0.2 - 1. 0 [facility] Comment on above: Performed By: #### U MICRO, ERUR, PREGU #### [facility] [address] [place] [address] Dr. Bartolo Pierre URon 12-28-2021 , QUAL Negative Normal NEGATIVE The [facility] Comment on above: Performed By: #### U MICRO, ERUR, PREGU #### [facility] [address] [place] [address] Dr. Bartolo Pierre PROF 14(COMP METB)on 022 Albumin [Mass/Vol] 3.3 g/dL Critically low 3.4-5.0 [facility] Comment on above: Performed By: #### C RP, CMP #### [facility] [address] [address] [address] Bartolo Pierre Albumin/Globulin [Mass ratio] 1.0 {ratio} Normal [facility] Comment on above: Performed By: #### C RP, CMP #### [facility] [address] [address] [address] Bartolo Pierre ALP [Catalytic activity/Vol] 60 U/L Normal 46-116 [facility] Comment on above: Performed By: #### C RP, CMP #### [facility] [address] [address] [address] Bartolo Pierre ALT [Catalytic activity/Vol] 12 U/L Critically low 14-59 [facility] Comment on above: Performed By: #### C RP, CMP #### [facility] [address] [address] [address] Bartolo Pierre Anion gap [Moles/Vol] 10.5 mmol/L Normal [facility] Comment on above: Performed By: #### C RP, CMP #### [facility] [address] [address] [address] Bartolo Pierre AST [Catalytic activity/Vol] 9 U/L Critically low 15-37 [facility] Comment on above: Performed By: #### C RP, CMP #### [facility] [address] [address] [address] Bartolo Pierre Bilirubin [Mass/Vol] 0.2 mg/dL Normal 0.2-1.0 [facility] Comment on above: Performed By: #### C RP, CMP #### [facility] [address] [address] [address] Bartolo Pierre Calcium [Mass/Vol] 8.5 mg/dL Normal 8.5-10.1 [facility] Comment on above: Performed By: #### C RP, CMP #### [facility] [address] [address] [address] Bartolo Pierre Chloride [Moles/Vol] 106 mmol/L Normal 98-107 [facility] Comment on above: Performed By: #### C RP, CMP #### [facility] [address] [address] [address] Bartolo Pierre CO2 [Moles/Vol] 27.2 mmol/L Normal 21.0-32.0 [facility] Comment on above: Performed By: #### C RP, CMP #### [facility] [address] [address] [address] Bartolo Pierre Creatinine [Mass/Vol] 0.87 mg/dL Normal 0.55-1.02 The [facility] Comment on above: Performed By: #### C RP, CMP #### [facility] [address] [place] [address] Dr. Bartolo Pierre EGFR-AF IRANIAN >60 Normal >=60 [facility] Comment on above: Performed By: #### C RP, CMP #### [facility] [address] [place] [address] Dr. Bartolo Pierre EGFR-NON AF IRANIAN >60 Normal >=60 The [facility] Comment on above: Performed By: #### C RP, CMP #### [facility] [address] [place] [address] Dr. Bartolo Pierre Globulin (S) [Mass/Vol] 3.2 g/dL Normal The [facility] Comment on above: Performed By: #### C RP, CMP #### [facility] [address] [place] [address] Dr. Bartolo Pierre Glucose [Mass/Vol] 84 mg/dL Normal 74-106 [facility] Comment on above: Performed By: #### C RP, CMP #### [facility] [address] [place] [address] Dr. Bartolo Pierre Potassium [Moles/Vol] 3.7 mmol/L Normal 3.5-5.1 The [facility] Comment on above: Performed By: #### C RP, CMP #### [facility] [address] [place] [address] Dr. Bartolo Pierre Protein [Mass/Vol] 6.5 g/dL Normal 6.4-8.2 [facility] Comment on above: Performed By: #### C RP, CMP #### [facility] [address] [address] [address] Bartolo Pierre Sodium [Moles/Vol] 140 mmol/L Normal 136-145 [facility] Comment on above: Performed By: #### C RP, CMP #### [facility] [address] [address] [address] Bartolo Pierre Urea nitrogen [Mass/Vol] 8.0 mg/dL Normal 7.0-18.0 [facility] Comment on above: Performed By: #### C RP, CMP #### [facility] [address] [address] [address] Bartolo Pierre Urea nitrogen/Creatinine [Mass ratio] 9.2 mg/mg Normal The [facility] Comment on above: Performed By: #### C RP, CMP #### [facility] [address] [address] [address] Bartolo Pierre [facility] 2021 SED RATE 16 mm/hr Normal <=20 [facility] Comment on above: Performed By: #### S EDR ####[facility] [address] [address]Dr. Bartolo Pierre URINE MICROSCOPIC ONLYon BACTERIA NONE SEEN Normal NONE SEEN [facility] Comment on above: Performed By: #### U MICRO, ERUR, PREGU ####[facility] [address] [address]Dr. Bartolo Pierre Bacteria identified Cx Nom (U) NOT INDICATED Normal The [facility] Comment on above: Performed By: #### U MICRO, ERUR, PREGU ####[facility] [address] [address]Dr. Bartolo Pierre CAST SEEN Abnormal NONE SEEN The [facility] Comment on above: Performed By: #### U MICRO, ERUR, PREGU ####[facility] [address] [address]Dr. Bartolo Pierre Crystals LM Nom (Urine sed) NONE SEEN Normal NONE SEEN The [facility] Comment on above: Performed By: #### U MICRO, ERUR, PREGU ####[facility] [address] [address]Dr. Bartolo Pierre Epithelial cells LM Ql (Urine sed) RARE Normal NONE SEEN /RARE The [facility] Comment on above: Performed By: #### U MICRO, ERUR, PREGU ####[facility] [address] [address]Dr. Bartolo Pierre HYALINE CAST FEW Normal The [facility] Comment on above: Performed By: #### U MICRO, ERUR, PREGU ####[facility] [address] [address]Dr. Bartolo Pierre MUCOUS NONE SEEN Normal NONE SEEN The [facility] Comment on above: Performed By: #### U MICRO, ERUR, PREGU ####[facility] [address] [address]Dr. Bartolo Pierre RBC 2-5 Abnormal 0-2 The [facility] Comment on above: Performed By: #### U MICRO, ERUR, PREGU ####[facility] [address] [address]Dr. Bartolo Pierre WBC 2-5 Abnormal NONE SEEN The [facility] Comment on above: Performed By: #### U MICRO, ERUR, PREGU ####[facility] [address] [address]Dr. Bartolo Pierre XR ABD FLAT UP_PA Ada [...] Bernardo WATKINS Date: 2021-12-28 01:13 Normal The [facility] C Urineon 09-15-2021 C Urine Order added [...] <=20 V Ceftazidime S <=1 V Normal [facility] Comment on above: Performed By: #### U CI #### [address] [address] [address] Abd Pelvis w/o IV Cont St [...] Electronically Signed in Other Vendor System) Normal [facility] ED Clinical Summaryon 2021 ED Clinical Summary (Inserted Image. Michelle ble to display) [address] [place] [address] ED Clinical Summary Person Information Name: Debo Swann Jocelyn/[facility] Age: 21 Years : 2000 Sex: Female PCP: Marital Status: Single Phone: Race: White Ethnicity: Not or Language: Spanish Visit Reason: Flank pain; Back or neck pain Acuity: 3 Enc Type: Emergency Med Service: Emergency Medicine Arrival: 09/13/2021 18:41:23 Discharge: 09/14/2021 00:19:00 LOS: 000 05:38 Checkin: 09/13/2021 18:41:23 Checkout: 09/14/2021 00:19:00 Dispo Type: Home or Self Care Address: [address] [place] [address] [place] [id number] Provider Notes: History of Present Illness 21-year-old [...] range between ( 27.2 and 40.8 ) [place] Auto: 5.6 % -- Normal range between [...] range between ( 36.0 and 46.0 ) [place] Absolute: 0.6 x10 MCH: 25.3 pg -- [...] Negative 08/26 (more content not included)... Normal [facility] ED Note-Physicianon 09-15-19 ED Note-Physician Chief Complaint [...] High Lymph Auto 09/13/21 18:55 19.1 Low [place] Auto 09/13/21 18:55 5.6 Eos Auto 09/13/21 18:55 1.6 Basophil Auto 09/13/21 18:55 0.5 Neutro Absolute 09/13/21 18:55 8.0 High Lymph Absolute 09/13/21 18:55 2.1 [place] Absolute 09/13/21 18:55 0.6 Eos Absolute 09/13/21 [...] Remedios Cordoba DO Electronically signed by ___ Jade VILLALBA, Rik Daniels 09/14/21 02:30 EDT Normal [facility] US Transvaginal w/ Duplexon 09-14-2021 US Transvaginal [...] Electronically Signed in Other Vendor System) Normal [facility] .UA Microscp Aon 09-13-2021 UA Bacteria Present Abnormal Absent [facility] Comment on above: Performed By: #### L IVER #### [address] [id number] UA Mucus Present Abnormal Absent [facility] Comment on above: Performed By: #### L IVER #### [address] [address] UA RBC Quant 10 /HPF High 0-5 [facility] Comment on above: Performed By: #### L IVER #### [address] [address] UA Squepi Cells Quant 1 /HPF Normal 0-29 [facility] Comment on above: Performed By: #### L IVER #### [address] [address] UA WBC Quant 206 /HPF High 0-5 [facility] Comment on above: Performed By: #### L IVER #### [place] [address] .eGFRon 09-13-2021 GFR/1.73 sq M.predicted MDRD (S/P/Bld) [Vol rate/Area] mL/min/{1.73_m2} Normal >=60 [facility] Comment on above: Result Comment: [facility] Laboratories have implemented the eGFR calculation approach [...] Age = years Performed By: #### L NAKUL #### [address] [address] Basic Metabolic Profileon Anion gap [Moles/Vol] 15 mmol/L Normal 7-17 [facility] Comment on above: Performed By: #### C [id number] #### [address] [address] Calcium [Mass/Vol] 9.5 mg/dL Normal 8.5-10.3 [facility] Comment on above: Performed By: #### C [id number] #### [address] [address] Chloride [Moles/Vol] 103 mmol/L Normal 98-110 [facility] Comment on above: Performed By: #### C [id number] #### [address] [address] CO2 [Moles/Vol] 23 mmol/L Normal 22-32 [facility] Comment on above: Performed By: #### C [id number] #### [address] [address] Creatinine [Mass/Vol] 0.62 mg/dL Normal 0.44-1.03 [facility] Comment on above: Performed By: #### C [id number] #### [address] [address] Glucose [Mass/Vol] 82 mg/dL Normal 70-99 [facility] Comment on above: Performed By: #### C [id number] #### [address] [address] Potassium [Moles/Vol] 3.9 mmol/L Normal 3.4-4.8 [facility] Comment on above: Performed By: #### C [id number] #### [address] [address] Sodium [Moles/Vol] 137 mmol/L Normal 133-142 [facility] Comment on above: Performed By: #### C [id number] #### [address] [address] Urea nitrogen [Mass/Vol] 9 mg/dL Normal 8-26 [facility] Comment on above: Performed By: #### C [id number] #### [address] [address] Urea nitrogen/Creatinine [Mass ratio] 14.5 mg/mg Normal 10.0-20.0 [facility] Comment on above: Performed By: #### C [id number] #### [address] [address] CBC w/ Diffon 09-13-2021 Erythrocyte distribution width (RBC) [Ratio] 14.8 % Normal 11.6-14.8 [facility] Comment on above: Performed By: #### U CI #### [address] [address] Hematocrit (Bld) [Volume fraction] 36.0 % Normal 36.0-46.0 [facility] Comment on above: Performed By: #### U CI #### [address] [address] Hemoglobin (Bld) [Mass/Vol] 11.8 g/dL Low 12.0-16.0 [facility] Comment on above: Performed By: #### U CI #### [address] [address] MCH (RBC) [Entitic mass] 25.3 pg Low 27.0-35.0 [facility] Comment on above: Performed By: #### U CI #### [address] [address] MCHC 32.9 % Normal 31.0-37.0 [facility] Comment on above: Performed By: #### U CI #### [address] [place] [id number] MCV (RBC) [Entitic vol] 76.9 fL Low 80.0-100.0 [facility] Comment on above: Performed By: #### U CI #### [address] [id number] Platelet 183 x10*3/mcL Normal 150-350 [facility] Comment on above: Performed By: #### U CI #### [address] [id number] Platelet mean volume (Bld) [Entitic vol] 10.7 fL High 6.7-10.6 [facility] Comment on above: Performed By: #### U CI #### [place] [address] RBC 4.68 x10*6/mcL Normal 3.80-5.20 [facility] Comment on above: Performed By: #### U CI #### [address] [id number] WBC 11.0 x10*3/mcL Normal 4.5-11.0 [facility] Comment on above: Performed By: #### U CI #### [address] [id number] Diff Autoon 09-13-2021 Baso Absolute 0.1 x10*3/mcL Normal 0.0-0.2 [facility] Comment on above: Performed By: #### . Automated Diff #### [address] [place] [id number] Basophils/100 WBC (Bld) 0.5 % Normal 0.0-1.5 [facility] Comment on above: Performed By: #### . Automated Diff #### [address] [address] Eos Absolute 0.2 x10*3/mcL Normal 0.0-0.4 [facility] Comment on above: Performed By: #### . Automated Diff #### [address] [address] Eosinophils/100 WBC (Bld) 1.6 % Normal 0.0-5.4 [facility] Comment on above: Performed By: #### . Automated Diff #### [address] [address] Lymph Absolute 2.1 x10*3/mcL Normal 1.0-4.8 [facility] Comment on above: Performed By: #### . Automated Diff #### [address] [address] Lymphocytes/100 WBC (Bld) 19.1 % Low 27.2-40.8 [facility] Comment on above: Performed By: #### . Automated Diff #### [address] [address] [place] Absolute 0.6 x10*3/mcL Normal 0.1-1.1 [facility] Comment on above: Performed By: #### . Automated Diff #### [address] [address] Monocytes/100 WBC (Bld) 5.6 % Normal 3.7-11.9 [facility] Comment on above: Performed By: #### . Automated Diff #### [address] [address] Neutro Absolute 8.0 x10*3/mcL High 1.8-7.7 [facility] Comment on above: Performed By: #### . Automated Diff #### [address] [address] Neutro Auto 73.2 % High 47.2-70.8 [facility] Comment on above: Performed By: #### . Automated Diff #### [place] [address] ED Note-Physicianon 09-14-19 ED Note-Physician Chief Complaint [...] High Lymph Auto 09/13/21 18:55 19.1 Low [place] Auto 09/13/21 18:55 5.6 Eos Auto 04/20/22 18:55 1.6 Basophil Auto 09/13/21 18:55 0.5 Neutro Absolute 09/13/21 18:55 8.0 High Lymph Absolute 09/13/21 18:55 2.1 [place] Absolute 09/13/21 18:55 0.6 Eos Absolute 09/13/21 [...] 09/13/21 18 (more content not included)... Normal [facility] Hep Func Panelon 09-13-2021 Albumin [Mass/Vol] 4.5 g/dL Normal 3.2-4.9 [facility] Comment on above: Performed By: #### L IVER #### [facility] [address] [place] [address] Alk Phos 61 IU/L Normal 32-91 [facility] Comment on above: Performed By: #### L IVER #### [address] [address] ALT [Catalytic activity/Vol] 14 U/L Normal 14-54 [facility] Comment on above: Performed By: #### L IVER #### [address] [address] AST [Catalytic activity/Vol] 19 U/L Normal 15-41 [facility] Comment on above: Performed By: #### L IVER #### [address] [address] Bili Direct 0.1 mg/dL Normal 0.1-0.5 [facility] Comment on above: Performed By: #### L IVER #### [address] [address] Bili Indirect 0.5 mg/dL Normal 0.0-1.0 [facility] Comment on above: Performed By: #### L IVER #### [address] [address] Bili Total 0.6 mg/dL Normal 0.3-1.2 [facility] Comment on above: Performed By: #### L IVER #### [address] [address] Protein [Mass/Vol] 7.7 g/dL Normal 6.5-8.1 [facility] Comment on above: Performed By: #### L IVER #### [address] [address] Lipaseon 09-13-2021 Lipase Lvl 24 IU/L Normal 22-51 [facility] Comment on above: Performed By: #### L IVER #### [address] [address] Magnesiumon 09-13-2021 Magnesium [Mass/Vol] 1.9 mg/dL Normal 1.7-2.4 [facility] Comment on above: Performed By: #### C [id number] #### [address] [address] S Preg Qlon 09-13-2021 Serum Preg Negative Normal [facility] Comment on above: Result Comment: The hCG Combo Rapid Test has a sensitivity of 10 mIU/mL in serum and is capable of detecting as early as 1 day after the first missed menses. Performed By: #### L IVER #### [address] [address] UA w Culture if Indon 2021 Color (U) Light-Yellow Normal [facility] Comment on above: Performed By: #### U CI #### [facility] [address] [facility] [place] [address] Ketones Ql (U) 80 mg/dL Abnormal Negative [facility] Comment on above: Performed By: #### U CI #### [facility] [address] [place] [address], [place] [address] UA Blood 2+ Abnormal Negative [facility] Comment on above: Performed By: #### U CI #### [facility] [address] [place] [address], [place] [address] UA Clarity Turbid Normal [facility] Comment on above: Performed By: #### U CI #### [address] [place] [address] UA Glucose Normal Normal Negative [facility] Comment on above: Performed By: #### U CI #### [address] [place] [address] UA Leukocyte Esterase 500 Abnormal Negative [facility] Comment on above: Performed By: #### U CI #### [address] [place] [address] UA Nitrite Negative Normal Negative [facility] Comment on above: Performed By: #### U CI #### [facility] [address] [place] [address], [place] [address] UA pH 7.0 Normal 4.5 - 7.8 [facility] Comment on above: Performed By: #### U CI #### [facility] [address] [place] [address], [place] [address] UA Protein 50 mg/dL Abnormal Negative [facility] Comment on above: Performed By: #### U CI #### [facility] [address] [place] [address], [place] [address] UA Source Clean Catch Normal [facility] Comment on above: Performed By: #### U CI #### [facility] [address] [place] [address], [place] [address] UA Spec Grav 1.014 Normal 1.003-1.035 [facility] Comment on above: Performed By: #### U CI #### [address] [place] [address] UA Urobilinogen Normal Normal 0.2 - 1.0 [facility] Comment on above: Performed By: #### U CI #### [address] [address] Urobilinogen (U) [Mass/Vol] Negative Normal Negative [facility] Comment on above: Performed By: #### U CI #### [address] [address] ED Clinical Summaryon 2021 ED Clinical Summary (Inserted Image. Michlele ble to display) [address] [address] ED Clinical Summary Person Information Name: Debo Swann/[facility] Age: 21 Years : 2000 Sex: Female PCP: Marital Status: Single Phone: Race: White Ethnicity: Not or Language: Spanish Visit Reason: Dizziness; Dizziness Acuity: 3 Enc Type: Emergency Med Service: Emergency Medicine Arrival: 08/31/2021 19:49:20 Discharge: 08/31/2021 22:28:00 LOS: 000 02:39 Checkin: 08/31/2021 19:49:20 Checkout: 08/31/2021 22:28:00 Dispo Type: Home or Self Care Address: [address] [place] [address] [place] [id number] Provider Notes: Diagnosis: Nausea in adult; Vasovagal [...] Visit Final Med List: New Medications [id number] [address] [place], [place] [id number], [phone] ondansetron (Zofran ODT 4 mg oral tablet, disintegrating) 1 Tabs Oral (given by mouth) every 8 hours as needed as needed for nausea/vomiting for 3 Days. Refills: 0. Last Dose: __ [id number], [address] [place], [place] [id number], [phone] ondansetron (Zofran ODT 4 mg oral tablet, [...] for reevaluation. Tylenol and ibuprofen as directed xmgy-saa-ycdbznz for pain or fevers. Zofran ODT as prescribed to help with nausea. With: Address: When: [address] [phone] Business (1) Discharge Orders: Discharge Patient 08/31/21 21:54:00 EDT, Discharge to Home, Self Return to Work/School 08/31/21 21:54:00 EDT, 09/02/21 7:00:00 EDT, 08/31/21 21:54:00 EDT Patient Education Information: Vomiting (Adult); Near Syncope, Vasovagal [facility] Poison Help line: . [facility] Hotline: [place] Tobacco Quit Line: [facility] ([place], [place]) [address]: [phone] [facility] ([place], [place]) [address]: [phone] [facility] [address], [place]: [phone] Normal [facility] ED Note-Physicianon 09-02-19 ED Note-Physician Chief Complaint [...] with a family physician I put the [facility] information on the patient's discharge paperwork so [...] tabs, 0 Refill(s), 09/03/21 21:54:00 EDT, Pharmacy: [id number] Discharge Patient EKG Return to Work/School Refresh [...] LATEST RESUL (more content not included)... Normal [facility] .UA Microscp Aon 08-31-2021 UA Mucus Present Abnormal Absent [facility] Comment on above: Performed By: #### U CI #### [facility] [address] [place], [place] [id number] UA RBC Quant 0 /HPF Normal 0-5 [facility] Comment on above: Performed By: #### U CI #### [facility] [address] [place] [address] UA Squepi Cells Quant 6 /HPF Normal 0-29 [facility] Comment on above: Performed By: #### U CI #### [facility] [address] [place] [id number] UA WBC Quant 1 /HPF Normal 0-5 [facility] Comment on above: Performed By: #### U CI #### [place] [id number] UA w Culture if Indon 2021 Color (U) Yellow Normal [facility] Comment on above: Performed By: #### L IVER #### [address] [address] Ketones Ql (U) Negative Normal Negative [facility] Comment on above: Performed By: #### L IVER #### [address] [address] UA Blood 1+ Abnormal Negative [facility] Comment on above: Performed By: #### L IVER #### [address] [address] UA Clarity Clear Normal [facility] Comment on above: Performed By: #### L IVER #### [address] [address] UA Glucose Normal Normal Negative [facility] Comment on above: Performed By: #### L IVER #### [address] [address] UA Leukocyte Esterase Negative Normal Negative [facility] Comment on above: Performed By: #### L IVER #### [address] [address] UA Nitrite Negative Normal Negative [facility] Comment on above: Performed By: #### L IVER #### [address] [address] UA pH 6.5 Normal 4.5 - 7.8 [facility] Comment on above: Performed By: #### L IVER #### [address] [address] UA Protein 10 mg/dL Normal Negative [facility] Comment on above: Performed By: #### L IVER #### [address] [address] UA Source Clean Catch Normal [facility] Comment on above: Performed By: #### L IVER #### [address] [address] UA Spec Grav 1.025 Normal 1.003-1.035 [facility] Comment on above: Performed By: #### L IVER #### [facility] [address] [place] [address] UA Urobilinogen Normal Normal 0.2 - 1.0 [facility] Comment on above: Performed By: #### L IVER #### [facility] [address] [place] [address] Urobilinogen (U) [Mass/Vol] Negative Normal Negative [facility] Comment on above: Performed By: #### L IVER #### [facility] [address] [place] [address] Orthopedic Office/Clinic Not paco 07-25-2021 Orthopedic Office/Clinic [...] data Hi (more content not included)... Normal [facility] Comment on above: Order Comment: eduardo french ED Clinical Summaryon 2021 ED Clinical Summary (Inserted Image. Michelle ble to display) [address] [place] [address] ED Clinical Summary Person Information Name: Debo Swann/[facility] Age: 21 Years : 2000 Sex: Female PCP: Marital Status: Single Phone: Race: White Ethnicity: Not or Language: Spanish Visit Reason: Knee pain-swelling; Extremities pain - swelling Acuity: 4 Enc Type: Emergency Med Service: Emergency Medicine Arrival: 07/19/2021 18:27:19 Discharge: 07/19/2021 19:54:00 LOS: 000 01:27 Checkin: 07/19/2021 18:27:19 Checkout: 07/19/2021 19:54:00 Dispo Type: Home or Self Care Address: [address] [place] [address] [place] [id number] Provider Notes: Diagnosis: Derangement of right knee [...] Visit Final Med List: New Medications [id number], [address] [id number], [phone] ibuprofen (ibuprofen 600 mg oral tablet) 1 Tabs Oral (given by mouth) every 8 hours as needed as needed for pain for 10 Days. Refills: 0. Last Dose: __ [facility], [address] [place] [id number], [phone] ibuprofen (ibuprofen 600 mg oral tablet) 1 [...] as well to help with pain. Tylenol vmyz-ymf-ysasstk as directed to help with pain. With: Address: When: Familia Hauser [address] [facility] [place] [phone] Business (1) Discharge Orders: Discharge Patient 07/19/21 19:40:00 EST, Discharge to Home, Self Return to Work/School 07/19/21 19:40:00 EST, 07/21/21 7:00:00 EST, 07/19/21 19:40:00 EST Patient Education Information: RICE; KENYETTA Wrap; Knee Pain of Uncertain Cause [facility] Poison Help line: . [facility] Hotline: [place] Tobacco Quit Line: [facility] ([place], [place]) [address]: [phone] [facility] ([place], [place]) [address]: [phone] [facility] [address], [place]: [phone] Normal [facility] ED Note-Physicianon 07-19-19 ED Note-Physician Chief Complaint [...] she was also instructed to use Tylenol cssy-agi-dyxpkip as directed. She requested a work note [...] tabs, 0 Refill(s), 07/29/21 19:41:00 EST, Pharmacy: [facility]/pharmacy #[id number] [place] Wrap Application Discharge Patient Return to [...] By: Remedios Cordoba DO Electronically signed by __Na Matias 07/19/21 20:00 EST Normal [facility] XR Knee 3 Views Righton 06-28 XR [...] Electronically Signed in Other Vendor System) Normal [facility]on SARS-CoV-2 (COVID-19) RNA GENIA+probe Ql (Unsp spec) Not detected Normal NOT DETECTED [facility] Comment on above: Result Comment: This test is not yet approved or cleared by the [place] FDA. When there are no FDA-approved or cleared tests available, and other criteria are met, FDA can make tests available under an emergency access mechanism called an Emergency Use Authorization (EUA). The EUA for this test is supported by the [place] of Health and Human Service's (HHS's) declaration [...] consistent with SARS-CoV-2. Performed By: #### C VDTB #### [facility] [address] [place] [address] Dr. Bartolo Pierre INFLUENZA A AND B AGon 06-01 [facility] SEE BELOW Normal [facility] Comment on above: Result Comment: Nega tive for Flu A protein angiten. Infection due to Flu A cannot be ruled out. Flu A angiten in the sample may be below the detection limit of the test. Performed By: #### I NFLUAB #### [facility] [address] [place] [address] Dr. Bartolo Pierre [facility] SEE BELOW Normal [facility] Comment on above: Result Comment: Nega tive for Flu B protein antigen. Infection due to Flu B cannot be ruled out. Flu B antigen in the sample may be below the detection limit of the test. Performed By: #### I NFLUAB #### [facility] [address] [place] [address] Dr. Bartolo Pierre INFLUENZA A AG Negative Normal NEGATIVE SEE COMMENT [facility] Comment on above: Performed By: #### I NFLUAB #### [facility] [address] [place] [address] Dr. Bartolo Pierre INFLUENZA B AG Negative Normal NEGATIVE SEE COMMENT [facility] Comment on above: Performed By: #### I NFLUAB #### [facility] [address] [place] [address] Dr. Bartolo Pierre INTERNAL CONTROLS Within Normal Limits Normal Wi thin Normal Limits [facility] Comment on above: Performed By: #### I NFLUAB #### [facility] [address] [place] [address] Dr. Bartolo Pierre XR CHEST 1 Von [...] by: MARCO GOSS Date: 2021-06-01 18:46 Normal [facility] INFLUENZA by PCRon 0 FLU A by PCR Negative [facility] Comment on above: Performed By: #### F LUPCR #### [facility] [address] [address] FLU B by PCR [facility] Comment on above: Result Comment: POSI TIVE VERIPHY Performed at [address] [address] Performed By: #### F LUPCR #### [address] [address] ALCOHOLon 02-19-2019 Ethanol [Mass/Vol] mg/dL Normal [facility] Comment on above: Result Comment: FOR MEDICAL USE ONLY. . REF VALUES <10 Performed By: #### A LC #### [address] [address] BASIC METABOLIC PANELon 01-26 Anion gap [Moles/Vol] 11 mmol/L Normal 10 - 20 [facility] Comment on above: Performed By: #### B MP #### [address] [address] Calcium [Mass/Vol] 9.5 mg/dL Normal 8.6 - 10.3 [facility] Comment on above: Performed By: #### B MP #### [address] [address] Chloride [Moles/Vol] 103 mmol/L Normal 98 - 107 [facility] Comment on above: Performed By: #### B MP #### [address] [address] Creatinine [Mass/Vol] 0.80 mg/dL Normal 0.50 - 1.05 [facility] Comment on above: Performed By: #### B MP #### [address] [address] GFR- AM. >60 Normal >60 [facility] Comment on above: Result Comment: CALC ULATIONS OF ESTIMATED GFR ARE PERFORMED USING THE MDRD STUDY EQUATION FOR THE IDMS-TRACEABLE CREATININE METHODS. CLIN CHEM 2007;53:766-72 Performed By: #### B MP #### [address] [address] GFR-NON AM. >60 Normal >60 [facility] Comment on above: Performed By: #### B MP #### [address] [address] Glucose [Mass/Vol] 68 mg/dL Low 74 - 99 [facility] Comment on above: Performed By: #### B MP #### [address] [address] HCO3 (Bld) [Moles/Vol] 25 mmol/L Normal 21 - 32 [facility] Comment on above: Performed By: #### B MP #### [address] [address] Potassium [Moles/Vol] 3.4 mmol/L Low 3.5 - 5.3 [facility] Comment on above: Performed By: #### B MP #### [address] [address] Sodium [Moles/Vol] 136 mmol/L Normal 136 - 145 [facility] Comment on above: Performed By: #### B MP #### [address] [address] Urea nitrogen [Mass/Vol] 8 mg/dL Normal 6 - 23 [facility] Comment on above: Performed By: #### B MP #### [address] [address] CBCon 02-19-2019 Erythrocyte distribution width (RBC) [Ratio] 12.6 % Normal 11.5 - 14.5 [facility] Comment on above: Performed By: #### C BC #### [address] [address] Hematocrit (Bld) [Volume fraction] 41.3 % Normal 36.0 - 46.0 [facility] Comment on above: Performed By: #### C BC #### [address] [address] Hemoglobin (Bld) [Mass/Vol] 13.2 g/dL Normal 12.0 - 16.0 [facility] Comment on above: Performed By: #### C BC #### [address] [address] MCHC (RBC) [Mass/Vol] 32.0 g/dL Normal 32.0 - 36.0 [facility] Comment on above: Performed By: #### C BC #### [address] [address] MCV (RBC) [Entitic vol] 82 fL Normal 80 - 100 [facility] Comment on above: Performed By: #### C BC #### [address] [address] Platelets (Bld) [#/Vol] 199 10*3/uL Normal 150 - 450 [facility] Comment on above: Performed By: #### C BC #### [address] [address] RBC (Bld) [#/Vol] 5.04 x10E12/L Normal 4.00 - 5.20 [facility] Comment on above: Performed By: #### C BC #### [address] [address] WBC (Bld) [#/Vol] 12.1 10*3/uL High 4.4 - 11.3 [facility] Comment on above: Performed By: #### C BC #### [address] [address] [address] C-SPINE WO CONTRASTon CT C-SPINE WO CONTRAST Patient Name: DEBO SWANN STUDY: CT C-SPINE WO CONTRAST; 02/18/2019 11:14 pm INDICATION: fall from horse 3pm / right side abd chest pelvis pain multiple distracting injuries. COMPARISON: None. ACCESSION NUMBER(S): [id number] ORDERING CLINICIAN: ELIO DUKE TECHNIQUE: Axial noncontrast [...] Electronically signed by: BHUPINDER HOLLOWAY MD Normal [facility] CT CHEST ABDOMEN PELVIS W CO NTRASTon 02-19-2019 CT CHEST ABDOMEN PELVIS W CONTRAST Patient Name: DEBO SWANN STUDY: CT CHEST ABDOMEN PELVIS W CONTRAST; 02/18/2019 11:14 pm INDICATION: fall from horse pain right chest and abdominal pain / pain with respirations. COMPARISON: None. ACCESSION NUMBER(S): [id number] ORDERING CLINICIAN: ELIO DUKE TECHNIQUE: Axial CT [...] Electronically signed by: BHUPINDER HOLLOWAY MD Normal [facility] CT LOWER EXT WO CONTRASTon 0 02-19-2019 [...] r/o right hip fx. COMPARISON: ACCESSION NUMBER(S): [id number] ORDERING CLINICIAN: ELIO DUKE TECHNIQUE: Noncontrast spiral [...] Electronically signed by: BHUPINDER HOLLOWAY MD Normal [facility] CT PELVIS W/O CONTRAST Patient Name: DEBO SWANN STUDY: CT LOWER EXT WO CONTRAST; 02/18/2019 11:14 pm INDICATION: fall from horse 3pm / right side abd chest pelvis pain multiple distracting injuries / right hip unable to SLR, unable to bear weight r/o pelvis fracture, r/o SI joint diastasis, r/o right hip fx. COMPARISON: ACCESSION NUMBER(S): [id number] ORDERING CLINICIAN: ELIO DUKE TECHNIQUE: Noncontrast spiral [...] Electronically signed by: BHUPINDER HOLLOWAY MD Normal [facility] DRUG SCREEN,URINEon 02-20-20 19 AMPHETAMINE SCREEN,U Negative Normal NEGATIVE [facility] Comment on above: Result Comment: CUTO FF LEVEL: 500 NG/ML Cross-reactivity has been reported with high concentrations of the following drugs: buproprion, chloroquine, chlorpromazine, ephedrine, mephentermine, fenfluramine, phentermine, phenylpropanolamine, pseudoephedrine, and propranolol. Performed By: #### D RUG3 #### [place] [address] [place] [address] BARBITURATES SCREEN,U Negative Normal NEGATIVE [facility] Comment on above: Result Comment: CUTO FF LEVEL: 200 NG/ML Performed By: #### D RUG3 #### [facility] [address] [place] [address] BENZODIAZEPINES SCREEN,U Negative Normal NEGATIVE [facility] Comment on above: Result Comment: CUTO FF LEVEL: 200 NG/ML Performed By: #### D RUG3 #### [address] [address] CANNABINOIDS SCREEN,U Negative Normal NEGATIVE [facility] Comment on above: Result Comment: CUTO FF LEVEL: 50 NG/ML Performed By: #### D RUG3 #### [address] [address] COCAINE METABOLITE SCREEN,U Negative Normal NEGATIVE [facility] Comment on above: Result Comment: CUTO FF LEVEL: 150 NG/ML Performed By: #### D RUG3 #### [address] [address] DRUG SCREEN COMMENT SEE BELOW Normal [facility] Comment on above: Result Comment: Drug screen results are presumptive and should not be used to assess compliance with prescribed medication. Contact the performing [facility] laboratory to add-on definitive confirmatory testing if [...] directors. Performed By: #### D RUG3 #### [address] [address] METHADONE SCREEN,U Negative Normal NEGATIVE [facility] Comment on above: Result Comment: CUTO FF LEVEL: 150 NG/ML The metabolite U-mlwih-wabaszsyznjzlc (LAAM) is not detected by this method in concentrations that would be found in the urine of patients on LAAM therapy. Performed By: #### D RUG3 #### [address] [address] OPIATES SCREEN,U Negative Normal NEGATIVE [facility] Comment on above: Result Comment: CUTO FF LEVEL: 300 NG/ML The opiate screen does not detect fentanyl, meperidine, or tramadol. Oxycodone is not consistently detected (refer to Oxycodone Screen, Urine result). Performed By: #### D RUG3 #### [address] [address] PCP SCREEN,U Negative Normal NEGATIVE [facility] Comment on above: Result Comment: CUTO FF LEVEL: 25 NG/ML Cross-reactivity has been reported with dextromethorphan. Performed By: #### D RUG3 #### [address] [address] HCG,URINEon 02-19-2019 Beta HCG ( test) Ql (U) Negative Normal Negative [facility] Comment on above: Performed By: #### H CGU #### [address] [address] LACTATEon 02-19-2019 Lactate [Moles/Vol] 2.1 mmol/L High 0.4 - 2.0 [facility] Comment on above: Result Comment: Ruby puncture immediately after or during the administration of Metamizole may lead to falsely low results. Testing should be performed immediately prior to Metamizole dosing. Performed By: #### L ACT #### [place] [address] Provider Note - ED v2on 01-26 Provider [...] made to minimize errors. Minor errors in investment analyst may be present. Please call if questions. [...] documented data. SIGNIFICANT EVENTS: No documented data. FAST FOOD SALES ASSISTANT: Is : no(1) Is : no(1) MEDICAL DECISION MAKING/ED COURSE MDM/ED COURSE: 0125 hrs Discussed all findings with the patient who is feeling moderately improved. Discussed plan of care to include discharge on Alloy and crutches with close PCP follow-up. Suitable [...] From Triage - ED 18-Feb-2019 21:40 Normal [facility] Risk Screen - Adult Emergenc yon 02-18-2019 [...] Communicatenone Learning Preferencesaudio Cultural Considerationsnone Developmental Considerationsnone Buddhism Considerationsnone Learning Assessment (Other Learner): Learning Assessment (Other Learner): Other learner availableno Pressure Injury/TB/Substance: Pressure Injury: Pressure Injury Present on Admissionno Do you have a coughno Substance Use Current or Former Historynever: Alcohol, Street Drugs YES: Cigarette/Tobacco, e-Cigarette/Vaping Smoking Statuscurrent every day smoker Tobaccovaping Admission Risk Screen: Significant IndicatorsComplete CAGE: CAGE: Is this an injured patient at a Trauma Center ([facility]/[place]): no Electronic Signatures: Leslie Borden) (Signed 18-Feb-2019 21:57) Authored: Preferred Language, Advanced Directives, Family Violence Adult, Learning Assessment (Patient), Learning Assessment (Other Learner), Pressure Injury/TB/Substance, CAGE Last Updated: 18-Feb-2019 21:57 by Leslie Borden (DAR) Normal [facility] Triage - EDon 02-18-2019 Triage - ED [...] immunocompromised related to: N/A Travel outside of [place]: no Allergies: no Last menstrual period: 14-Jan-2019 [...] Accompanied By: self Language: Spoken Language Preferred: Spanish Reading Language Preferred: Spanish Research Project Coordinator 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 01-03-2024 13:44-0400 Body mass index (BMI) [Ratio] 23.5 kg/m2 [facility] 01-03-2024 13:44-0400 Body temperature 97.8 [degF] [facility] 01-03-2024 13:44-0400 Body weight 64.[address] [facility] 01-03-2024 13:44-0400 Diastolic blood pressure 74 mm[Hg] [facility] 01-03-2024 13:44-0400 Heart rate 77 /min [facility] 01-03-2024 13:44-0400 Respiratory rate 16 /min [facility] 01-03-2024 13:44-0400 SaO2% (BldA) [Mass fraction] 98 % [facility] 01-03-2024 13:44-0400 Systolic blood pressure 121 mm[Hg] [facility] 05-04-2021 17:00-0500 Body height 170.18 cm Zhane Graves Other [facility] 05-04-2021 17:00-0500 Body mass index (BMI) [Ratio] 23.49 kg/m2 Zhane Ginty Other [facility] 05-04-2021 17:00-0500 Body temperature 99 [degF] Zhane Ginty [facility] 05-04-2021 17:00-0500 Body weight 68.04 kg Zhane Ginty Other [facility] 05-04-2021 17:00-0500 Respiratory rate 18 /min Zhane Ginty Other [facility] 05-04-2021 17:00-0500 SaO2% (BldA) [Mass fraction] 99 % Zhane Ginty Other [facility] Other Encounters Encounter Date Encounter Type Care Provider Facility Start: 03-02-2024 End: 03-02-2024 Emergency department patient visit NO PCP NO PCP [facility] Start: 02-14-2024 End: 02-15-2024 Emergency department patient visit RICKY DE GUZMAN [facility] Start: 02-07-2024 End: 02-08-2024 Emergency department patient visit DAVID ZARATE [facility] Start: 01-03-2024 End: 01-03-2024 ambulatory [facility] Work Phone: Start: 01-03-2024 End: 01-03-2024 Patient encounter procedure [facility] Work Phone: Start: 12-11-2023 End: 12-11-2023 Emergency department patient visit NO PCP NO PCP [facility] Start: 12-03-2023 End: 12-04-2023 Emergency department patient visit RICKY DE GUZMAN [facility] Start: 10-16-2023 End: 10-16-2023 Emergency department patient visit NO PCP NO PCP [facility] Start: 08-02-2023 End: 08-03-2023 Emergency department patient visit KELLEY WARDGERS [facility] Start: 07-05-2023 End: 07-06-2023 Emergency department patient visit DAVID Casas TESSA [facility] Start: 03-22-2022 End: 03-22-2022 Emergency department patient visit Cor[facility] Facility:[facility] Start: 03-15-2022 End: 03-15-2022 Emergency department patient visit Coral [facility] Facility:[facility] Start: 2022 End: 2022 Emergency department patient visit MD Damien Flores Facility:[facility] Start: 03-05-2022 End: 03-05-2022 Emergency department patient visit Luis Antonio Alexandre Facility:[facility] Start: 02-27-2022 End: 02-27-2022 Emergency department patient visit Deana Dotson Facility:[facility] Start: 12-28-2021 End: 12-28-[address] ROXANE VALLADARES Facility:[facility] Start: 09-13-2021 End: 09-14-2021 Emergency department patient visit MD Yifan Garcia Facility:[facility] Start: 08-31-2021 End: 09-01-2021 Emergency department patient visit Na Romo ACCOUNTING COORDINATOR-[employer]ER Facility:[facility] Start: 07-25-2021 End: 07-26-2021 ambulatory Marino Carmona Facility:[facility] Start: 07-19-2021 End: 07-19-2021 Emergency department patient visit Na Romo ACCOUNTING COORDINATOR-[employer]ER Facility:[facility] Start: 06-01-2021 End: 06-01-2021 ambulatory MAYNOR ELKINS Facility:[facility] Start: 05-16-2021 End: 05-16-[address] RANJAN BUSH Facility:[facility] Start: 05-04-2021 End: 05-04-2021 ambulatory Zhane Graves Other [facility] Start: 05-04-2021 Office outpatient visit 15 minutes Zhane Graves [facility] Payers Date Payer Category Payer Unknown [id number] 2.16.84 [id number] 1999 Unknown [id number] 2.16.84 [id number] 1999 Unknown [id number] 2.16.84 [id number] 1999 Unknown [id number] 2.16. [id number] 1999 Unknown [id number] 2.16. [id number] 1999 Unknown [id number] 2.16. [id number] 1999 Unknown [id number] 2.16. [id number] 1999 Unknown [id number] 2.16. [id number] 1999 Unknown [id number] 2.16. [id number] 1999 Unknown [id number] 2.16. [id number] 1999 Unknown [id number] 2.16. [id number] 1999 Unknown [id number] 2.16. [id number] 1959 Self-pay Unknown [id number] Social History Date Type Detail Facility Unknown if ever smoked [facility] Other Sex Assigned At Sex Assigned At Bir th [facility] Start: 01-03-2024 Tobacco smoking status NHIS Smoker (finding) [facility] Start: 2000 Sex Assigned At Female F [facility] Clinical Note 03-22-2022 Note Date & Type [...] Signed, Electronically Signed in Other Vendor System) [facility] Clinical Note 03-15-2022 Note Date & Type [...] Signed, Electronically Signed in Other Vendor System) [facility] Clinical Note 03-05-2022 Note Date & Type [...] Dictated DT/TM: 03.05.2022 10:36 am Signed by: Franky Costa MD Signed (Electronic Signature): 03.05.2022 10:47 am (If Report Is Signed, Electronically Signed in Other Vendor System) [facility] Clinical Note 05-16-2021 Note Date & Type [...] authenticated by: LORENA CARREON Date: 2021-05-16 15:48 [facility] Evaluation note 05-04-2021 Note Date & Type [...] Patient care instructions given in writting by [facility] Care At Home document [facility] Other Evaluation note Note Date & Type Note Facility Evaluation note [facility]: History general Narrative - Reported Note Date & Type Note Facility History general Narrative - Reported Type Medical History hx abdominal pain [facility] Other Summary Purpose Family History No Family History Records FoundNo Family History Records FoundNo Family History Records FoundNo Family History Records FoundNo Family History Records Found Advance Directives No Advanced Directives Records Found Advance Directive Response Recorded Date/ Time Advance Directives No January 02 1:27pm Chief Complaint and Reason for Visit Chief Complaint Left ankle pain with fall Additional Source Comments INFORMATION SOURCE (unrecogn ized section and content) DATE CREATED AUTHOR 07/31/2019 [facility] DATE CREATED AUTHOR AUTHOR'S ORGANIZ ATION [facility] DATE CREATED AUTHOR AUTHOR'S ORGANIZ ATION 02/28/2022 [facility] DATE CREATED AUTHOR AUTHOR'S ORGANIZ ATION 03/24/2022 [facility] DATE CREATED AUTHOR AUTHOR'S ORGANIZ ATION 03/04/2024 [facility] REASON FOR VISIT (unrecogniz ed section [...] BE BASED ON THE PRIMARY CLINICAL RECORDS. [facility]. provides no warranty or guarantee of the accuracy or completeness of information in this document.
--- NOTE | 2024-03-17 12:30 | ED.LOWEXI1 ---
HPI HPI - Extremity Injury (Lower) General Chief Complaint: Extremity Injury, Lower Stated Complaint: LOWER EXTREMITY INJURY Time Seen by Provider: 03/17/24 11:58 Source: patient Mode of arrival: walk-in Limitations: no limitations History of Present Illness HPI Narrative: The patient comes to the ER with a left foot pain that started on Saturday which is almost 2 days ago, she was moving and apparently cinderblock fell on her left foot , she was wearing her shoes She since then has been having pain in her left foot mostly distal half Patient denies any other complaints Related Data Previous Rx's ?Medication ?Instructions ?Recorded ibuprofen 600 mg tablet 600 mg PO TID PRN pain #20 tabs 03/17/24 Allergies Allergy/AdvReac Type Severity Reaction Status Date / Time No Known Drug Allergies Allergy Verified 02/07/24 21:52 Opioid HPI Opioid Management Most Recent Pain and Opioid Data: Last Pain Scale 7 03/17/24 12:42 03/17/24 Last MAR Pain Assessment 03/17/24 12:42 Review of Systems ROS Status of ROS 10 or more systems reviewed and unremarkable except as noted in history and below PFSH PFSH Social History Smoking status: Current every day smoker Little interest or pleasure in doing things: not at all Feeling down, depressed, or hopeless: not at all Exam Narrative Exam Narrative: Nurses notes and vital signs reviewed and patient is not hypoxic. Left foot exam: No significant swelling on examination and the patient have subjective tenderness upon palpation of the distal half of the foot but there is no open wound and the patient have no vascular injury detected General: Well-appearing and in no apparent distress. Skin: Warm, dry, no pallor noted. No rash. Head: Normocephalic, atraumatic. Neck: Supple, non-tender. Eye: Pupils are equal, round and EOMI. No scleral icterus. Ears, Nose, Mouth, and Throat: TM are clear, no nasal mucosal hypertrophy. Oral mucosa is moist, no posterior oropharynx erythema, uvula is mid-line Cardiovascular: Regular Rate and Rhythm without murmur, gallop or rub. Respiratory: No accessory muscle use or respiratory distress. Lungs are clear to auscultation, no wheezing, rales or rhonchi Chest Wall: no tenderness Back: No midline thoracic or lumbar vertebral tenderness. No CVA tenderness Musculoskeletal: normal ROM, no calf or popliteal tenderness, no lower extremity edema/swelling GI: Abdomen is soft, non-distended. Normal bowel sounds. No masses appreciated. No tenderness to palpation. No rebound, guarding, or rigidity noted. Neurological: A&O x4. No cranial nerve dysfunction observed. No truncal ataxia. Moves all extremities. Sensation intact. Psychiatric: Cooperative and interactive. Normal mood and affect. Constitutional Vital Signs, click to edit/add: Last Vital Signs Temp 98.6 F 03/17/24 11:56 Pulse 78 03/17/24 11:56 Resp 18 03/17/24 11:56 BP 111/61 03/17/24 11:56 Pulse Ox 99 03/17/24 11:56 O2 Del Method Room Air 03/17/24 11:56 Course Vital Signs Vital signs: Vital Signs Temperature 98.6 F 03/17/24 11:56 Pulse Rate 78 03/17/24 11:56 Respiratory Rate 18 03/17/24 11:56 Blood Pressure 111/61 03/17/24 11:56 Pulse Oximetry 99 03/17/24 11:56 Oxygen Delivery Method Room Air 03/17/24 11:56 Temperature 98.6 F 03/17/24 11:56 Pulse Rate 78 03/17/24 11:56 Respiratory Rate 18 03/17/24 11:56 Blood Pressure 111/61 03/17/24 11:56 Pulse Oximetry 99 03/17/24 11:56 Oxygen Delivery Method Room Air 03/17/24 11:56 MDM - Extremity Injury (Lower) MDM Narrative Medical decision making narrative: X-ray of the patient left foot showed no acute pathology Postop shoes in addition to George wrap and ibuprofen and elevation and rest instructed Patient was referred to podiatry as outpatient case needed to repeat x-ray within a week in case of continuous pain The patient is to follow up with primary care physician in next 2-3 days or to return to the emergency department should any of the signs or symptoms worsen or new symptoms develop. The patient agrees with the following Diagnosis and Treatment plan and the patient will be discharged home. Discharge Plan Discharge Chief Complaint: Extremity Injury, Lower Clinical Impression: Contusion of foot Patient Disposition: Home, Self-Care Time of Disposition Decision: 12:30 Condition: Good Prescriptions / Home Meds: New ibuprofen 600 mg tablet 600 mg PO TID PRN (Reason: pain) Qty: 20 0RF Print Language: [place] Instructions: Foot Contusion (ED) Referrals: kendy [Other] - 1 week Physician,Non-Staff, MD [Primary Care Provider] - 1 week
[2024-03-17] MEDS: IBUPROFEN 600 MG TABLET PO (12:42)
== END 2024-03-17 12:54 | disposition home or self-care (01) ==
PROVIDERS: Emergency Provider Emergency Medicine
DX: S90.32XA Contusion of left foot, initial encounter (principal); W20.8XXA Other cause of strike by thrown, projected or falling object, initial encounter; F17.200 Nicotine dependence, unspecified, uncomplicated
CPT/HCPCS: 73620; 99283